=== PATIENT | male | born 1940 | race Caucasian/White ===

== ENCOUNTER 2016-08-22 14:40 | Emergency (ER) | payer MEDICARE ==
[2016-08-22] MEDS ORDERED: NORMAL SALINE 1000 ML 1,000 ML IV ONE (15:02)
[2016-08-22] MEDS ORDERED: NORMAL SALINE 1000 ML 500 ML IV ONE (15:02)
[2016-08-22] MEDS ORDERED: ONDANSETRON HCL INJ/PF 4 MG/2 ML SDV IV ONE (15:03)
[2016-08-22] MEDS ORDERED: FAMOTIDINE INJ/PF 20 MG/2 ML SDV IV ONE (15:03)
[2016-08-22 15:09] LABS: ABSOLUTE BASOPHILS # (AUTO) 0.1 10^3/uL (0.0-0.2); ABSOLUTE LYMPHOCYTES (AUTO) 1.6 10^3/uL (0.5-4.7); ABSOLUTE MONOCYTES (AUTO) 1.3 10^3/uL (0.1-1.4); BASOPHILS % (AUTO) 0.7 % (0-2); EOSINOPHILS % (AUTO) 0.3 % (0-6); HEMATOCRIT 47.4 % (37.9-51.0); HGB HCT DIFFERENCE -2.4; LYMPHOCYTES % (AUTO) 13.6 % (13-45); MEAN CORPUSCULAR HEMOGLOBIN 29.6 pg (27.0-33.4); MEAN CORPUSCULAR HGB CONC 31.7 g/dL (32.0-36.0); MEAN CORPUSCULAR VOLUME 93 fl (80-97); RED BLOOD COUNT 5.08 10^6/uL (4.35-5.55); RED CELL DISTRIBUTION WIDTH 14.5 % (11.5-14.0); SEGMENTED NEUTROPHILS % (AUTO) 74.4 % (42-78)
[2016-08-22] MEDS ORDERED: LIDOCAINE 5% (700 MG) TRANSDERMAL ADH..PATCH TP ONE (15:26)
[2016-08-22 15:40] LABS: ALANINE AMINOTRANSFERASE 23 U/L (21-72); ALBUMIN 4.6 g/dL (3.5-5.0); ALKALINE PHOSPHATASE 116 U/L (38-126); ANION GAP 15 (5-19); ASPARTATE AMINO TRANSFERASE 22 U/L (17-59); BILIRUBIN,TOTAL 0.8 mg/dL (0.2-1.3); BLOOD UREA NITROGEN 22 mg/dL (7-20); CALCIUM 10.4 mg/dL (8.4-10.2); CARBON DIOXIDE 32 mmol/L (22-30); CHLORIDE 95 mmol/L (98-107); CREATININE RESULT 0.94 mg/dL (0.52-1.25); GLUCOSE 137 mg/dL (75-110); POTASSIUM 4.2 mmol/L (3.6-5.0); SODIUM 141.5 mmol/L (137-145); TOTAL PROTEIN 7.1 g/dL (6.3-8.2)
[2016-08-22] MEDS ORDERED: MAG HYDROX/AL HYDROX/SIMETH SUSP 30 ML UDCUP PO ONE (16:22)
[2016-08-22] MEDS ORDERED: METOCLOPRAMIDE HCL ORAL SOLN 10 MG/10 ML UDCUP PO ONE (16:22)
[2016-08-22] MEDS ORDERED: LIDOCAINE 2% VISCOUS SOLN 20 ML UDCUP PO ONE (16:22)
[2016-08-22 17:15] LABS: APPEARANCE,URINE CLEAR; BILIRUBIN,URINE NEGATIVE (NEGATIVE); GLUCOSE, URINE NEGATIVE (NEGATIVE); KETONES,URINE NEGATIVE (NEGATIVE); LEUKOCYTE ESTERASE,URINE NEGATIVE (NEGATIVE); NITRITE,URINE NEGATIVE (NEGATIVE); PROTEIN,URINE 30 mg/dL (NEGATIVE); URINE SPECIFIC GRAVITY 1.015; UROBILINOGEN,URINE NEGATIVE mg/dL (<2.0)
[2016-08-22] MEDS ORDERED: ONDANSETRON ODT 4 MG TAB (6 TAB/DSPK) PO PRN (17:55)
--- NOTE | 2016-08-22 17:57 | ER Document Report ---
ED General - General Chief Complaint: Nausea/Vomiting Stated Complaint: NAUSEA TRAVEL OUTSIDE OF THE [place] IN LAST 30 DAYS: No - HPI Patient complains to provider of: abdominal burning nausea vomiting Notes: Yes patient coming in for complaining of abdominal burning states a dominant burning epigastric region nausea vomiting vomiting 2 prior to arrival. Patient states woke up this morning with the symptoms were not exacerbated by his breakfast. Patient denies fevers chills diarrhea. Patient upon evaluation is requesting something to drink. No obvious distress. - Related Data Allergies/Adverse Reactions: morphine Allergy (Verified 08/22/16 15:01) Past Medical History - Social History Smoking Status: Unknown if Ever Smoked Family History: CAD, DM - Past Medical History Cardiac Medical History: Reports: Hx Atrial Fibrillation, Hx Hypercholesterolemia, Hx Hypertension, Hx Peripheral Vascular Disease, Hx Pulmonary Embolism Pulmonary Medical History: Reports: Hx COPD, Hx Pneumonia Endocrine Medical History: Reports: Hx Diabetes Mellitus Type 2 Renal/ Medical History: Reports: Hx Kidney Stones - Incidental finding on CT scan 3 months ago. GI Medical History: Reports: Hx Gastroesophageal Reflux Disease Musculoskeltal Medical History: Reports Hx Arthritis Psychiatric Medical History: Reports: Hx Dementia - BINSWANGER'S Denies: Hx Depression Past Surgical History: Reports: Hx Abdominal Surgery - abdominal hernia, hemorrhoidectomy, AAA, Hx Cardiac Surgery, Hx Cholecystectomy, Hx Herniorrhaphy , Hx Vascular Surgery - AAA REPAIR - Immunizations Hx Diphtheria, Pertussis, Tetanus Vaccination: Yes - 2012 Hx Pneumococcal Vaccination: 05/03/16 Review of Systems - Review of Systems Constitutional: No symptoms reported EENT: No symptoms reported Cardiovascular: No symptoms reported Respiratory: No symptoms reported Gastrointestinal: Abdominal pain - Abdominal burning, Nausea, Vomiting Genitourinary: No symptoms reported Male Genitourinary: No symptoms reported Musculoskeletal: No symptoms reported Skin: No symptoms reported Hematologic/Lymphatic: No symptoms reported Neurological/Psychological: No symptoms reported -: Yes All other systems reviewed and negative Physical Exam - Vital signs Vitals: Resp Pulse Ox 26 H 95 08/22/16 15:02 08/22/16 15:02 Interpretation: Normal - General General appearance: Appears well, Alert - HEENT Head: Normocephalic, Atraumatic Eyes: Normal Pupils: PERRL - Respiratory Respiratory status: No respiratory distress Chest status: Nontender Breath sounds: Normal Chest palpation: Normal - Cardiovascular Rhythm: Regular Heart sounds: Normal auscultation Murmur: No - Abdominal Inspection: Normal Distension: No distension Bowel sounds: Normal Tenderness: Nontender Organomegaly: No organomegaly Notes: Patient with a reducible umbilical hernia. Surgical scar is well-healed no signs of infection. - Back Back: Normal, Nontender - Extremities General upper extremity: Normal inspection, Nontender, Normal color, Normal ROM , Normal temperature General lower extremity: Normal inspection, Nontender, Normal color, Normal ROM , Normal temperature, Normal weight bearing. No: Erin's sign - Neurological Neuro grossly intact: Yes Cognition: Normal Orientation: AAOx4 [place] Coma Scale Eye Opening: Spontaneous [place] Coma Scale Verbal: Oriented [place] Coma Scale Motor: Obeys Commands [place] Coma Scale Total: 15 Speech: Normal Motor strength normal: LUE, RUE, LLE, RLE Sensory: Normal - Psychological Associated symptoms: Normal affect, Normal mood - Skin Skin Temperature: Warm Skin Moisture: Dry Skin Color: Normal Course - Re-evaluation Re-evalutation: 08/22/16 22:31 Laboratory showed no critical etiology. Patient was able tolerate by mouth. Patient will be discharged home. Patient feeling better after Pepcid - Vital Signs Vital signs: Temp Pulse Resp BP Pulse Ox 23 H 121/78 95 08/22/16 18:06 08/22/16 18:06 08/22/16 18:06 - Laboratory Result Diagrams: 08/22/16 14:55 08/22/16 14:55 Laboratory results interpreted by me: 08/22/16 08/22/16 08/22/16 14:55 14:55 16:54 WBC 12.0 H MCHC 31.7 L RDW 14.5 H Absolute Neutrophils 9.0 H Chloride 95 L Carbon Dioxide 32 H BUN 22 H Glucose 137 H Calcium 10.4 H Urine Protein 30 H Discharge - Discharge Clinical Impression: abdominal burning Nausea & vomiting Qualifiers: Vomiting type: unspecified Vomiting Intractability: non-intractable Qualified Code(s): R11.2 - Nausea with vomiting, unspecified Condition: Good Disposition: HOME, SELF-CARE Instructions: Abdominal Pain ([facility]), Nausea or Vomiting, Nonspecific ([facility]) Additional Instructions: Please take medications as prescribed. Return to the ER if symptoms worsen. Follow-up with your primary care physician. Prescriptions: Famotidine [Pepcid 20 mg Tablet] 20 mg PO DAILY #12 tablet Ondansetron [Zofran Odt 4 mg Tablet] 1 - 2 tab PO Q4H PRN #20 tab.rapdis PRN Reason: For Nausea/Vomiting Referrals: DOUG PARMAR MD [Primary Care Provider] - Follow up in 3-5 days
[2016-08-22 18:29] VITALS: BP 121/78
== END 2016-08-22 18:29 | disposition home or self-care (01) ==
LOC: ER 14:40
DX: R11.2 Nausea with vomiting, unspecified (principal); R10.13 Epigastric pain
CPT/HCPCS: 99283; 96361; 96374; 96375; 36415; 83690; 85025; 80053; 81001; J3490; A9270; J2405; J7030; S0028

== ENCOUNTER 2016-09-14 21:12 | Inpatient (IN) | payer MEDICARE ==
[2016-09-14 23:01] LABS: HEMATOCRIT 40.6 % (37.9-51.0); HEMOGLOBIN 13.2 g/dL (13.5-17.0); MEAN CORPUSCULAR HEMOGLOBIN 30.2 pg (27.0-33.4); MEAN CORPUSCULAR HGB CONC 32.4 g/dL (32.0-36.0); MEAN CORPUSCULAR VOLUME 93 fl (80-97); RED BLOOD COUNT 4.35 10^6/uL (4.35-5.55); RED CELL DISTRIBUTION WIDTH 14.9 % (11.5-14.0); WHITE BLOOD COUNT 20.3 10^3/uL (4.0-10.5)
[2016-09-14 23:13] LABS: ANION GAP 12 (5-19); BLOOD UREA NITROGEN 17 mg/dL (7-20); CALCIUM 9.5 mg/dL (8.4-10.2); CARBON DIOXIDE 24 mmol/L (22-30); CHLORIDE 101 mmol/L (98-107); CREATININE RESULT 0.76 mg/dL (0.52-1.25); GLUCOSE 139 mg/dL (75-110); SODIUM 137.2 mmol/L (137-145)
[2016-09-14 23:40] LABS: BAND NEUTROPHILS % (MANUAL) 4 % (3-5); BASOPHILS % (MANUAL) 0 % (0-2); EOSINOPHILS % (MANUAL) 1 % (0-6); LYMPHOCYTES % (MANUAL) 11 % (13-45); TOTAL CELLS COUNTED 100
[2016-09-14 23:44] LABS: TOXIC GRANULATION 1+; TOXIC VACUOLATION PRESENT
[2016-09-14 23:45] LABS: ANISOCYTOSIS SLIGHT; BURR CELLS 2+; OVALOCYTES 1+; POIKILOCYTOSIS 3+; RBC MORPHOLOGY COMMENT NORMO-CYTIC/CHROMIC; TEAR DROP CELLS 1+
[2016-09-14 23:46] LABS: PLATELET CLUMPS PRESENT
[2016-09-15] MEDS ORDERED: LEVOFLOXACIN 500 MG/D5W RTU 100 ML IV ONE (03:06)
[2016-09-15] MEDS ORDERED: CEFEPIME 2 GM/D5W RTU 50 ML IV ONE (03:06)
[2016-09-15] MEDS ORDERED: VANCOMYCIN HCL INJ 1000 MG VIAL IV ONE (03:07)
[2016-09-15] MEDS ORDERED: METHYLPREDNISOLONE INJ 125 MG/2 ML SDV IV ONE (03:07)
[2016-09-15] MEDS ORDERED: IPRATROPIUM/ALBUTEROL 0.5-2.5 MG/3 ML AMPUL NEB ONE ×2 (03:07)
--- NOTE | 2016-09-15 03:22 | ER Document Report ---
ED Respiratory Problem - General Mode of Arrival: Wheelchair Information source: Patient, Relative TRAVEL OUTSIDE OF THE [place] IN LAST 30 DAYS: No - HPI Patient complains to provider of: Other - weakness Onset: Other - 2 days Associated symptoms: Other - See above <LARS MUIR - Last Filed: 09/15/16 03:22> <GIOVANAFAMILIA ROBER - Last Filed: 09/15/16 06:13> - General Chief Complaint: General Weakness Stated Complaint: weakness Notes: Patient is a 76 year old male, with a past medical history including Parkinsons and COPD, who presents to the emergency department with his family complaining of weakness onset 2 days ago. Patient states that he "feels terrible" and the weakness started suddenly and has worsened so that he was unable to walk or stand today. Patient was recently treated for pneumonia and currently complains of a cough. Per patient is not on antibiotics, steroids, breathing treatments, or home oxygen. (LARS MUIR) - Related Data Allergies/Adverse Reactions: morphine Allergy (Verified 09/15/16 04:51) Past Medical History - General Information source: Patient - Social History Smoking Status: Unknown if Ever Smoked Family History: Reviewed & Not Pertinent, CAD, DM Patient has suicidal ideation: No Patient has homicidal ideation: No - Past Medical History Cardiac Medical History: Reports: Hx Atrial Fibrillation, Hx Hypercholesterolemia, Hx Hypertension, Hx Peripheral Vascular Disease, Hx Pulmonary Embolism Pulmonary Medical History: Reports: Hx COPD, Hx Pneumonia Endocrine Medical History: Reports: Hx Diabetes Mellitus Type 2 Renal/ Medical History: Reports: Hx Kidney Stones - Incidental finding on CT scan 3 months ago. GI Medical History: Reports: Hx Gastroesophageal Reflux Disease Musculoskeltal Medical History: Reports Hx Arthritis Psychiatric Medical History: Reports: Hx Dementia - BINSWANGER'S Past Surgical History: Reports: Hx Abdominal Surgery - abdominal hernia, hemorrhoidectomy, AAA, Hx Cardiac Surgery, Hx Cholecystectomy, Hx Herniorrhaphy , Hx Vascular Surgery - AAA REPAIR - Immunizations Hx Diphtheria, Pertussis, Tetanus Vaccination: Yes - 2012 Hx Pneumococcal Vaccination: 05/03/16 <LARS MUIR - Last Filed: 09/15/16 03:22> Review of Systems - Review of Systems Constitutional: See HPI, Weakness EENT: No symptoms reported Cardiovascular: No symptoms reported Respiratory: See HPI, Cough Gastrointestinal: No symptoms reported Genitourinary: No symptoms reported Male Genitourinary: No symptoms reported Musculoskeletal: No symptoms reported Skin: No symptoms reported Hematologic/Lymphatic: No symptoms reported Neurological/Psychological: No symptoms reported -: Yes All other systems reviewed and negative <LARS MUIR - Last Filed: 09/15/16 03:22> Physical Exam - Vital signs Interpretation: Normal - General General appearance: Appears well, Alert - HEENT Head: Normocephalic, Atraumatic - Respiratory Respiratory status: No respiratory distress Chest status: Nontender Breath sounds: Rales - left base, Wheezing - diffuse Chest palpation: Normal - Cardiovascular Rhythm: Regular Heart sounds: Normal auscultation Murmur: No - Abdominal Inspection: Normal Distension: No distension Bowel sounds: Normal Tenderness: Nontender Organomegaly: No organomegaly - Back Back: Normal, Nontender - Extremities General upper extremity: Normal inspection General lower extremity: Normal inspection - Neurological Neuro grossly intact: Yes Cognition: Normal Orientation: AAOx4 [place] Coma Scale Eye Opening: Spontaneous [place] Coma Scale Verbal: Oriented [place] Coma Scale Motor: Obeys Commands [place] Coma Scale Total: 15 Speech: Normal - Psychological Associated symptoms: Normal affect, Normal mood - Skin Skin Temperature: Warm Skin Moisture: Dry Skin Color: Normal <LARS MUIR - Last Filed: 09/15/16 03:22> Course - Laboratory Result Diagrams: 09/14/16 22:44 09/14/16 22:44 <LARS MUIR - Last Filed: 09/15/16 03:22> - Laboratory Result Diagrams: 09/14/16 22:44 09/14/16 22:44 - Diagnostic Test Radiology reviewed: Image reviewed, Reports reviewed <FAMILIA AKHTAR - Last Filed: 09/15/16 06:13> - Re-evaluation Re-evalutation: 09/15/16 Patient presents with cough, weakness, and difficulty breathing. X-ray consistent with pneumonia. Patient with wheezing on exam. Treated with nebulizer, steroids, cefepime, Levaquin, and vancomycin as the patient was recently had pneumonia and was admitted in July. Patient has been discussed with the hospitalist service and will be admitted to the [facility]. Patient and family agrees plan. Stable time of admission. (FAMILIA AKHTAR) - Vital Signs Vital signs: Temp Pulse Resp BP Pulse Ox 100.2 F 31 H 106/63 93 09/15/16 06:00 09/15/16 06:01 09/15/16 06:00 09/15/16 06:01 (FAMILIA AKHTAR) - Laboratory Laboratory results interpreted by me: 09/14/16 09/14/16 22:44 22:44 WBC 20.3 H Hgb 13.2 L RDW 14.9 H Seg Neuts % (Manual) 80 H Lymphocytes % (Manual) 11 L Metamyelocytes % 1 H Abs Neuts (Manual) 17.3 H Glucose 139 H (LARS MUIR) (FAMILIA AKHTAR) Discharge <LARS MUIR - Last Filed: 09/15/16 03:22> - Discharge Admitting Provider: [facility] Unit Admitted: [facility] <FAMILIA AKHTAR - Last Filed: 09/15/16 06:13> - Discharge Clinical Impression: COPD exacerbation, Dehydration LLL pneumonia Qualifiers: Pneumonia type: due to unspecified organism Qualified Code(s): J18.1 - Lobar pneumonia, unspecified organism Condition: Stable Disposition: ADMITTED INPATIENT Scribe Documentation - Scribe Written by Tyleribe:: jennifer Ellis, 09/15/16, 0330 acting as scribe for :: Giovana <LARS MUIR - Last Filed: 09/15/16 03:22>
[2016-09-15] MEDS ORDERED: CEFEPIME 2 GM/D5W RTU 2 GM/50 ML RTUPB IV ONE (04:07)
[2016-09-15] MEDS ORDERED: NICOTINE 21 MG/24 HR PATCH.TD24 TD PRN (04:19)
[2016-09-15] MEDS ORDERED: DEXTROSE 50%-WATER 25 GM/50 ML DISP.SYRIN IV PRN ×2 (04:19)
[2016-09-15] MEDS ORDERED: GLUCAGON,HUMAN RECOMB 1 MG INJ IM PRN (04:19)
[2016-09-15] MEDS ORDERED: DEXTROSE 40% GEL 15 GM TUBE PO PRN ×2 (04:19)
[2016-09-15] MEDS ORDERED: GUAIFENESIN SYRP 200 MG/10 ML UDC PO PRN (04:27)
[2016-09-15] MEDS ORDERED: ALBUTEROL SULFATE 0.083% NEB 2.5 MG/3 ML AMPUL NEB PRN (04:27)
[2016-09-15] MEDS ORDERED: PHARMACY COMMUNICATION ORDER MC NR (04:30)
[2016-09-15] MEDS ORDERED: VANCOMYCIN HCL 0 MG in DEXTROSE 5%-WATER 250 ML IV NR (04:45)
--- NOTE | 2016-09-15 05:02 | PDOC H&P ---
History of Present Illness Admission Date/PCP: Dr. Dori Rae, [place], [place], [place] Patient complains of: difficulty breathing History of Present Illness: BRITTANY SALCEDO is a 76 year old male with underlying nonhome O2 dependent COPD, Parkinson's disease, type II diabetes mellitus, atrial fibrillation, not on chronic anticoagulation, history of pulmonary embolus, type II diabetes mellitus, esophageal reflux disease, arthritis, and dementia who presents to the emergency room for evaluation of above complaint. He and , who is no longer present, note a 2 day history of progressive generalized weakness, to the point of where he is unable to walk or stand over the last 12 hours or so. Normally ambulates with a walker. Patient states that he "feels terrible." Subjective fever, along with a slowly increasingly productive cough. However, no nausea vomiting, diarrhea or dysuria. No chest or abdominal pain. No underlying sleep apnea. Hospitalized the through the of last July with final diagnoses including sepsis and pneumonia. Was discharged home with a six-day course of Levaquin and a 10 day course of prednisone. Patient has been discussed with emergency room physician who evaluated the patient. . Laboratory results are listed in [facility] and are reviewed. X-ray summary results are listed below, with full report(s) reviewed. . Social history/personal habits: . No children. Retired. Lives with . Pack-a-day smoker. No alcohol or illicit drug use. Allergies/adverse reactions are listed in [facility] and are reviewed. No problems with Percocet. Home medications Home medications initially autopopulated into [facility] may not accurately reflect patient's true medications, dosages, and/or frequencies. Unfortunately, patient uncertain of medications/dosages/frequencies. Order has been entered for staff to contact family, outpatient physician, and/or pharmacy to more accurately determine medications, dosages, and frequencies and to contact physician when that has been accomplished. REVIEW OF SYSTEMS: Constitutional: See history and present illness. Eyes: No current vision complaints. ENT: No swallowing problems or complaints. Partial hearing loss. Pulmonary: See history and present illness. Cardiovascular: No current complaints, including chest pain. Gastrointestinal: No current complaints, including nausea or vomiting. Skin: No current complaints, including rashes. Hematologic: Easy bruising. Neurologic: No current complaints, including numbness or tingling. Musculoskeletal: Joint pain from arthritis. Psychiatric: Mild Anxiety depression; denies suicidal or homicidal ideation. Endocrine: No current complaints, including polyuria. Genitourinary: No current complaints, including dysuria. PHYSICAL EXAMINATION: Neither height nor weight are recorded on the chart. Temperature 100.2. Blood pressure 113/67. Pulse 71 and regular. 94% saturation on room air. Respirations are 20 and unlabored. On exam he outwardly is a slightly overweight otherwise well-nourished well- developed elderly male who appears a bit younger than his stated age. Appears slightly fatigued. Otherwise, pleasant awake alert and cooperative. No obvious distress other than mildly anxious. No agitation. Skin is warm and dry. No grossly obvious evidence of rash in areas of skin examined. No subcutaneous nodules palpated. ENT: Hearing grossly normal Mildly hard of hearing to normal conversation. Tongue midline on protrusion pink and slightly tacky. Eyes: No scleral icterus. Pupils equal and reactive to light at 4 mm. [place] conjunctivae. Neck is supple and nontender to gentle active range of motion and palpation. Midline trachea. No palpable thyroid nodule mass enlargement or tenderness. Lymphatic: No palpable cervical or clavicular nodes. Neck and lymphatic exams limited by patient body habitus. Psychiatric: Reasonable insight into acute and chronic medical issues. Oriented to time location and why here. Lungs: Auscultation reveals clear and equal breath sounds bilaterally. No use of accessory respiratory muscles. Intermittent slightly productive cough. Cardiovascular: Heart regular rate and rhythm, without gallop murmur or rub. No carotid or abdominal aortic bruits. No ankle or pedal edema. Faintly palpable dorsalis pedis pulses. Abdomen: soft, , slightly distended nontender with positive bowel sounds. Unable to adequately evaluate abdomen for masses or organomegaly due to distention. Extremities: Feet are warm and dry. No calf tenderness to compression. No grossly obvious visual evidence of calf swelling. Gentle manipulation of lower extremities fails to reveal any obvious evidence of injury or instability to knees hips or ankles. Neurologic: Moves upper extremities grossly normally. Patellar reflexes absent. Absent Babinski. Light touch is intact at feet. Dorsiflexion and plantarflexion of feet 5 / 5 and symmetric. Past Medical History Cardiac Medical History: Reports: Atrial Fibrillation, Hyperlipidema, Hypertension, Peripheral Vascular Disease, Pulmonary Embolism - History of Denies: Congestive Heart Failure, Myocardial Infarction Pulmonary Medical History: Reports: Chronic Obstructive Pulmonary Disease (COPD) , Pneumonia EENT Medical History: Reports: Ears - Partial hearing loss Denies: Eyes, Throat Neurological Medical History: Reports: Other - Parkinson's disease. Denies: Hemorrhagic CVA, Ischemic CVA, Seizures Endocrine Medical History: Reports: Diabetes Mellitus Type 2 Denies: Diabetes Mellitus Type 1, Hyperthyroidism, Hypothyroidism Renal/ Medical History: Reports: Nephrolithiasis - Incidental finding on recent CT scan. GI Medical History: Reports: Gastroesophageal Reflux Disease Denies: Cirrhosis, Hepatitis, Peptic Ulcer Disease Musculoskeltal Medical History: Reports: Arthritis Skin Medical History: Reports: None Denies: Eczema, Psoriasis Psychiatric Medical History: Reports: Dementia - BINSWANGER'S, Tobacco Dependency Denies: Alcohol Dependency, Depression, Substance Abuse Infectious Medical History: Denies: Hepatitis B, Hepatitis C Past Surgical History Past Surgical History: Reports: Cholecystectomy, Herniorrhaphy, Vascular Surgery - AAA REPAIR Social History Information Source: Patient, Emergency Med Personnel, [facility] Records Lives with: Spouse/Significant other Smoking Status: Current Every Day Smoker Frequency of Alcohol Use: None Hx Recreational Drug Use: No Drugs: None Hx Prescription Drug Abuse: No - Advance Directive Resuscitation Status: Full Code Surrogate healthcare decision maker:: Family History Family History: CAD, DM Parental Family History Reviewed: Yes Children Family History Reviewed: NA Sibling(s) Family History Reviewed.: Yes Medication/Allergy Home Medications: Omeprazole [Prilosec 40 mg Capsule] 40 mg PO DAILY #0 capsule. 02/20/13 Furosemide [Lasix 20 mg Tablet] 40 mg PO QAM 01/20/15 Potassium Chloride 20 meq PO BID 01/20/15 Carbidopa/Levodopa [Sinemet 25-100 mg Tablet] 1.5 each PO TID 07/11/16 Lisinopril [Prinivil 2.5 mg Tablet] 2.5 mg PO DAILY 07/11/16 Lorazepam [Ativan 0.5 mg Tablet] 0.5 mg PO Q4 PRN 07/11/16 Metformin HCl [Metformin HCl ER] 500 mg PO WSUPPER 07/11/16 Sertraline HCl 50 mg PO DAILY 07/11/16 Solifenacin Succinate [Vesicare] 5 mg PO DAILY 07/11/16 Albuterol Sulfate [Proair Respiclick] 2 puff IH Q6H #1 aer.pow.ba 07/14/16 Atorvastatin Calcium [Lipitor 10 mg Tablet] 10 mg PO QHS tablet 07/14/16 Benzonatate [Tessalon Perles 100 mg Capsule] 100 mg PO Q8 #30 capsule 07/14/16 Fluticasone Propionate [Flonase Nasal [place] 50 Mcg/[place] 16 gm] 2 spray NASL QPM #1 bottle 07/14/16 Levofloxacin [Levaquin 750 mg Tablet] 750 mg PO DAILY #6 tablet 07/14/16 Magnesium Oxide [Mag-Ox 400 mg Tablet] 400 mg PO DAILY tablet 07/14/16 Multivitamin [Tab-A-Edy (Multiple Vitamin) Tablet] 1 tab PO DAILY tablet 07/14 Oxycodone HCl/Acetaminophen [Percocet 5-325 mg Tablet] 1 tab PO Q4HP PRN tablet 07/14/16 Prednisone [Deltasone 20 mg Tablet] 20 mg PO BID #20 tablet 07/14/16 Sotalol HCl [Betapace 80 mg Tablet] 40 mg PO BID tablet 07/14/16 Tamsulosin HCl [Flomax 0.4 mg Cap.sr] 0.4 mg PO BID cap.sr.24h 07/14/16 Tiotropium [place] [Spiriva Handihaler 18 mcg/dose (30 Dose)] 1 cap IH DAILY # 30 capsule 07/14/16 Famotidine [Pepcid 20 mg Tablet] 20 mg PO DAILY #12 tablet 08/22/16 Ondansetron [Zofran Odt 4 mg Tablet] 1 - 2 tab PO Q4H PRN #20 tab.rapdis Allergies/Adverse Reactions: morphine Allergy (Verified 08/22/16 15:01) Physical Exam Vital Signs: Temp Pulse Resp BP Pulse Ox 100.8 F H 29 H 120/67 97 09/15/16 03:24 09/15/16 03:24 09/15/16 03:24 09/15/16 03:40 Results Laboratory Results: 09/14/16 22:44 09/14/16 22:44 09/14/16 09/14/16 22:44 22:44 WBC 20.3 H RBC 4.35 Hgb 13.2 L Hct 40.6 MCV 93 MCH 30.2 MCHC 32.4 RDW 14.9 H Plt Count 210 Seg Neutrophils % Not Reportable Lymphocytes % Not Reportable Monocytes % Not Reportable Eosinophils % Not Reportable Basophils % Not Reportable Absolute Neutrophils Not Reportable Absolute Lymphocytes Not Reportable Absolute Monocytes Not Reportable Absolute Eosinophils Not Reportable Absolute Basophils Not Reportable Sodium 137.2 Potassium 4.0 Chloride 101 Carbon Dioxide 24 Anion Gap 12 BUN 17 Creatinine 0.76 Est GFR ( Amer) > 60 Est GFR (Non-Af Amer) > 60 Glucose 139 H Calcium 9.5 Impressions: Chest X-Ray 09/14/16 22:25 IMPRESSION: LEFT LOWER LOBE INFILTRATE WITH PROBABLE LEFT PLEURAL EFFUSION. Assessment & Plan - Diagnosis (1) COPD exacerbation Is this a current diagnosis for this admission?: Yes (2) LLL pneumonia Qualifiers: Pneumonia type: due to unspecified organism Qualified Code(s): J18.1 - Lobar pneumonia, unspecified organism Is this a current diagnosis for this admission?: YesPlan: Patient will be admitted under COPD exacerbation and pneumonia protocol. Incentive spirometry twice a day. Scheduled DuoNeb's. PRN albuterol nebs daily prednisone. Prevacid for gastritis prophylaxis. Antibiotics will consist of cefepime, aztreonam, and intravenous vancomycin. Pharmacy to assist with dosing.. I strongly encouraged patient to notify staff should patient feel that respiratory status is worsening. Patient is a full code. I have strongly encouraged patient not to get out of bed without notifying staff , , to avoid a fall with injury. Knee high SCDs for DVT prophylaxis, along with subcutaneous Lovenox Impression and plans were discussed with patient, who concurs. Time spent in evaluation and management of patient: 60 minutes. (3) Atrial fibrillation Qualifiers: Atrial fibrillation type: unspecified Qualified Code(s): I48.91 - Unspecified atrial fibrillation Is this a current diagnosis for this admission?: YesPlan: Hemodynamically stable.Resume home medications as appropriate once these have been determined and reviewed. (4) Parkinsons disease Is this a current diagnosis for this admission?: YesPlan: Resume home medications as appropriate once these have been determined and reviewed. (5) Tobacco dependency Is this a current diagnosis for this admission?: YesPlan: When necessary nicotine patch. - Inpatient Certification Based on my medical assessment, after consideration of the patient's comorbidities, presenting symptoms, or acuity I expect that the services needed warrant INPATIENT care.: Yes I certify that my determination is in accordance with my understanding of Medicare's requirements for reasonable and necessary INPATIENT services [42 CFR 412.3e].: Yes Medical Necessity: Need Close Monitoring Due to Risk of Patient Decompensation, Need For Continuous Telemetry Monitoring, Need for Nebulizer Therapy and Monitoring of Response, Need for IV Antibiotics, Risk of Complication if Not Cared For in Hospital, Risk of Diagnosis Which Will Require Inpatient Eval/Care/ Monitoring Post Hospital Care: D/C or Transfer Summary
[2016-09-15] MEDS: ACETAMINOPHEN 325 MG TABLET PO PRN ×2 (05:53→20:04)
[2016-09-15] MEDS ORDERED: CEFEPIME 2 GM/D5W RTU 50 ML IV SCH (06:00)
[2016-09-15 06:49] LABS: BILIRUBIN,URINE NEGATIVE (NEGATIVE); GLUCOSE, URINE NEGATIVE (NEGATIVE); KETONES,URINE NEGATIVE (NEGATIVE); LEUKOCYTE ESTERASE,URINE NEGATIVE (NEGATIVE); NITRITE,URINE NEGATIVE (NEGATIVE); PROTEIN,URINE NEGATIVE (NEGATIVE); UROBILINOGEN,URINE NEGATIVE mg/dL (<2.0)
[2016-09-15 06:51] LABS: APPEARANCE,URINE CLEAR; URINE SPECIFIC GRAVITY 1.003
[2016-09-15 07:04] LABS: HEMATOCRIT 35.9 % (37.9-51.0); HEMOGLOBIN 11.9 g/dL (13.5-17.0); HGB HCT DIFFERENCE -0.2; MEAN CORPUSCULAR HEMOGLOBIN 30.4 pg (27.0-33.4); MEAN CORPUSCULAR HGB CONC 33.2 g/dL (32.0-36.0); MEAN CORPUSCULAR VOLUME 92 fl (80-97); RED BLOOD COUNT 3.91 10^6/uL (4.35-5.55); RED CELL DISTRIBUTION WIDTH 14.7 % (11.5-14.0); WHITE BLOOD COUNT 15.6 10^3/uL (4.0-10.5)
[2016-09-15 07:11] LABS: ALBUMIN 2.8 g/dL (3.5-5.0); TOTAL PROTEIN 5.5 g/dL (6.3-8.2)
[2016-09-15] MEDS: LANSOPRAZOLE 30 MG TAB.RAP.DR PO SCH ×2 (07:36→16:16)
[2016-09-15 07:37] LABS: BASOPHILS % (MANUAL) 0 % (0-2); EOSINOPHILS % (MANUAL) 0 % (0-6); LYMPHOCYTES % (MANUAL) 0 % (13-45); TOTAL CELLS COUNTED 100
[2016-09-15] MEDS: ENOXAPARIN SODIUM INJ 40 MG/0.4 ML DISP.SYRIN SUBCUT SCH (07:37)
[2016-09-15 07:38] LABS: RBC MORPHOLOGY COMMENT NORMO-CYTIC/CHROMIC; TOXIC GRANULATION SLIGHT
[2016-09-15] MEDS: INSULIN LISPRO 100 UNIT/ML 3 ML VIAL SUBCUT PRN ×4 (07:39→21:18)
[2016-09-15] MEDS ORDERED: IPRATROPIUM/ALBUTEROL 0.5-2.5 MG/3 ML AMPUL NEB SCH (08:00)
[2016-09-15] MEDS: PREDNISONE 20 MG TABLET PO SCH (09:33)
--- NOTE | 2016-09-15 11:31 | Physician Advisory Note ---
Physician Advisor ProgressNote .: Pursuant to the plan for [facility], I have reviewed the medical record for this patient. Physician Advisor Statement: Possible documentation opportunities if attending agrees: 1. "LLL pneumonia, suspect gram negative or MRSA given recent hospitalization" (need to specify type of bacteria suspected w/each PNA) 2. "possible sepsis due to pneumonia, present on admission, with tachypnea, fever 100.8, leukocytosis, ruled out/in" 3. "probable Lt pleural effusion by CXR" (must re-state possible findings on x -rays for them to be captured) 4. "chronic Afib" (vs paroxysmal Afib) 5. ? - "suspected malnutrition" - & state whether mild or moderate ..... Alb 2.8, age 76, BMI 30.1. As always, if concerned about any unstable VS or abnormal labs, please comment on them & note what doing about them, & please document each day the potential clinical problems you are concerned could occur if pt not kept in hospital for tx at this time. Status: 76yo with COPD & ongoing tobacco dependence, HTN, chronic Afib, DM-2, PE, PVD w/ AAA repair, PD, [place] dementia, ambulatory dysfunction requiring walker, recent hospitalization in Jul for PNA + sepsis, presented late 2/12 PM to ED with worsened wekaness, cough. (+)T100.2 up to 100.8, HR 71, RR31 up to 33, BP 106/63, O2 sat 93%, WBC 20.3, Hgb 13.2, glc 139. CXR = LLL infiltrate + probable Lt pleural effusion. (+) LLL rales, diffuse wheezing. Attending ordered nebs, IV cefepime/aztreonam/vanc, incentive spirometry, guaifenesin, Duonebs q6h + prn albuterol nebs, Prednisone 60mg daily as is currently recommended with COPD exacerbations as a substitute for IV Solumedroll , telemetry monitoring, PT eval. Pt spent 1st MN of care in ED before adm, & it was clearly expected that pt would require a 2nd MN at time of admission. Pt still having persistent tachypnea to 34, repeated tachycardia 90s, persistent leukocytosis of 15.6 Tx in inpatient hospital setting medically reasonable & necessary to protect pt' s health, safety, & medical condition. Appropriate for Inpt status. Thanks for your help with documentation accuracy/specificity improvement! Michell Harrison MD [facility] Physician Advisor, Fellow of [facility]
[2016-09-15] MEDS ORDERED: BENZONATATE 100 MG CAPSULE PO PRN (12:43)
[2016-09-15] MEDS ORDERED: LEVALBUTEROL HCL NEB 0.63 MG/3 ML AMPUL NEB PRN (12:48)
[2016-09-15] MEDS ORDERED: GUAIFENESIN 600 MG TABLET.SA PO ONE (13:00)
[2016-09-15] MEDS: CEFEPIME HCL 2 GM in DEXTROSE 5%-WATER 50 ML IV SCH ×2 (13:11→22:10)
[2016-09-15] MEDS: AZTREONAM 2 GM in DEXTROSE 5%-WATER 100 ML IV SCH ×2 (13:13→21:10)
--- NOTE | 2016-09-15 13:20 | PDOC PROGRESS REPORT ---
Subjective Progress Note for:: 09/15/16 Subjective:: The patient was seen earlier today on rounds. Patient admits to ongoing shortness of breath but overall this is improved. The patient states he has been producing yellow sputum. The patient denies any nausea, vomiting, diarrhea , dizziness, chest pain, heart palpitations, fevers, or chills. The patient has remained afebrile. Blood pressures have been in a good range. When prompted the patient voices no other concerns at this time. Review of systems: The rest of the review of systems is negative. Physical Exam Vital Signs: Temp Pulse Resp BP Pulse Ox 99.3 F 80 20 117/63 95 09/15/16 07:50 09/15/16 08:03 09/15/16 08:03 09/15/16 07:50 09/15/16 08:03 Intake & Output 09/13/16 09/14/16 09/15/16 23:59 23:59 23:59 Weight 95.3 kg General appearance: PRESENT: no acute distress, cooperative, well-developed, well-nourished Head exam: PRESENT: atraumatic, normocephalic Eye exam: PRESENT: conjunctiva pink, EOMI, PERRLA. ABSENT: scleral icterus Ear exam: PRESENT: normal external ear exam Mouth exam: PRESENT: moist, tongue midline Neck exam: ABSENT: carotid bruit, JVD, lymphadenopathy, thyromegaly Respiratory exam: PRESENT: rhonchi, symmetrical, unlabored, wheezes. ABSENT: rales, tachypnea Cardiovascular exam: PRESENT: RRR. ABSENT: diastolic murmur, rubs, systolic murmur Pulses: PRESENT: normal dorsalis pedis pul Vascular exam: PRESENT: normal capillary refill GI/Abdominal exam: PRESENT: normal bowel sounds, soft. ABSENT: distended, guarding, mass, organolmegaly, rebound, tenderness Rectal exam: PRESENT: deferred Extremities exam: PRESENT: full ROM. ABSENT: calf tenderness, clubbing, pedal edema Neurological exam: PRESENT: alert, awake, oriented to person, oriented to place , oriented to time, oriented to situation, CN II-XII grossly intact. ABSENT: motor sensory deficit Psychiatric exam: PRESENT: appropriate affect, normal mood. ABSENT: homicidal ideation, suicidal ideation Skin exam: PRESENT: dry, intact, warm. ABSENT: cyanosis, rash Results Laboratory Results: 09/15/16 06:45 09/15/16 09/15/16 09/15/16 06:05 06:45 06:45 WBC 15.6 H RBC 3.91 L Hgb 11.9 L Hct 35.9 L MCV 92 MCH 30.4 MCHC 33.2 RDW 14.7 H Plt Count 168 Seg Neutrophils % Not Reportable Lymphocytes % Not Reportable Monocytes % Not Reportable Eosinophils % Not Reportable Basophils % Not Reportable Absolute Neutrophils Not Reportable Absolute Lymphocytes Not Reportable Absolute Monocytes Not Reportable Absolute Eosinophils Not Reportable Absolute Basophils Not Reportable Total Bilirubin 1.0 AST 16 L ALT 22 Alkaline Phosphatase 71 Total Protein 5.5 L Albumin 2.8 L Urine Color YELLOW Urine Appearance CLEAR Urine pH 6.0 Ur Specific [place] 1.003 Urine Protein NEGATIVE Urine Glucose (UA) NEGATIVE Urine Ketones NEGATIVE Urine Blood NEGATIVE Urine Nitrite NEGATIVE Ur Leukocyte Esterase NEGATIVE Urine WBC (Auto) 0 Urine RBC (Auto) 0 Impressions: Chest X-Ray 09/14/16 22:25 IMPRESSION: LEFT LOWER LOBE INFILTRATE WITH PROBABLE LEFT PLEURAL EFFUSION. Assessment & Plan - Diagnosis (1) LLL pneumonia Qualifiers: Pneumonia type: due to unspecified organism Qualified Code(s): J18.1 - Lobar pneumonia, unspecified organism Is this a current diagnosis for this admission?: YesPlan: Awaiting sputum culture. Given the patient's recent admission will cover for HCAP for another 24 hours. (2) COPD exacerbation Is this a current diagnosis for this admission?: YesPlan: Continue scheduled nebs as well as as needed nebulizers, steroids, and supplemental oxygen. (3) Acute on chronic respiratory failure with hypoxemia Is this a current diagnosis for this admission?: YesPlan: Will continue supplemental O2. (4) Sepsis Qualifiers: Sepsis type: sepsis due to unspecified organism Qualified Code(s): A41.9 - Sepsis, unspecified organism Is this a current diagnosis for this admission?: YesPlan: Much improved Selected Entries 09/15/16 09/15/16 09/15/16 03:24 03:59 06:00 Temperature 100.8 F H 100.2 F Respiratory 30 H Rate 09/14/16 09/15/16 22:44 06:45 WBC 20.3 H 15.6 H (5) Atrial fibrillation Qualifiers: Atrial fibrillation type: unspecified Qualified Code(s): I48.91 - Unspecified atrial fibrillation Is this a current diagnosis for this admission?: YesPlan: Will continue home medications once reconcilable. (6) Parkinsons disease Is this a current diagnosis for this admission?: YesPlan: Will continue home medications once reconcilable. (7) Diabetes mellitus type 2 in nonobese Is this a current diagnosis for this admission?: YesPlan: Will continue home medications once reconcilable. (8) Tobacco dependency Is this a current diagnosis for this admission?: YesPlan: Spent 3 minutes discussing smoking cessation education. The patient declines any pharmacological intervention at this time however will add a PRN nicotine patch. 09/15/16 04:19 Nicotine [Nicoderm 21 mg/24 Hr Transderm Patch] 1 each TD DAILYP PRN (9) History of Magi's granulomatosis Is this a current diagnosis for this admission?: Yes (10) History of pulmonary embolus (PE) Is this a current diagnosis for this admission?: Yes - Time Time Spent with patient: on this visit including assessment, plan, physical examination, and patient education is 35 minutes. Time Spent with patient: 35 or more minutes Medications reviewed and adjusted accordingly: Yes Anticipated discharge: Home Within: within 48 hours Disposition: The patient is a full code. Pending patient's symptomatology and diagnostic findings will reevaluate in the a.m.
[2016-09-15] MEDS ORDERED: AZTREONAM 2 GM in DEXTROSE 5%-WATER 50 ML IV SCH (14:00)
[2016-09-15] MEDS: LEVALBUTEROL HCL NEB 1.25 MG/3 ML AMPUL NEB SCH ×2 (15:49→23:44)
[2016-09-15] MEDS: VANCOMYCIN HCL 1,250 MG in DEXTROSE 5%-WATER 250 ML IV SCH (16:17)
[2016-09-15] MEDS: GUAIFENESIN 600 MG TABLET.SA PO SCH (21:10)
[2016-09-15] MEDS: MONTELUKAST SODIUM 10 MG TABLET PO SCH (21:10)
[2016-09-16] MEDS: VANCOMYCIN HCL 1,250 MG in DEXTROSE 5%-WATER 250 ML IV SCH ×2 (03:22→16:41)
[2016-09-16] MEDS: ACETAMINOPHEN 325 MG TABLET PO PRN (03:52)
[2016-09-16 05:33] LABS: HEMOGLOBIN 11.3 g/dL (13.5-17.0); HGB HCT DIFFERENCE -0.1; MEAN CORPUSCULAR HEMOGLOBIN 30.6 pg (27.0-33.4); MEAN CORPUSCULAR HGB CONC 33.2 g/dL (32.0-36.0); MEAN CORPUSCULAR VOLUME 92 fl (80-97); RED BLOOD COUNT 3.69 10^6/uL (4.35-5.55); RED CELL DISTRIBUTION WIDTH 14.9 % (11.5-14.0); WHITE BLOOD COUNT 12.6 10^3/uL (4.0-10.5)
[2016-09-16 05:47] LABS: ALANINE AMINOTRANSFERASE 20 U/L (21-72); ALKALINE PHOSPHATASE 73 U/L (38-126); ANION GAP 12 (5-19); ASPARTATE AMINO TRANSFERASE 13 U/L (17-59); BILIRUBIN,TOTAL 0.6 mg/dL (0.2-1.3); BLOOD UREA NITROGEN 18 mg/dL (7-20); CALCIUM 9.2 mg/dL (8.4-10.2); CARBON DIOXIDE 20 mmol/L (22-30); CHLORIDE 106 mmol/L (98-107); CREATININE RESULT 0.66 mg/dL (0.52-1.25); GLUCOSE 199 mg/dL (75-110); POTASSIUM 3.9 mmol/L (3.6-5.0); SODIUM 137.7 mmol/L (137-145); TOTAL PROTEIN 5.3 g/dL (6.3-8.2)
[2016-09-16] MEDS: CEFEPIME HCL 2 GM in DEXTROSE 5%-WATER 50 ML IV SCH ×3 (05:58→21:32)
[2016-09-16 05:59] LABS: MAGNESIUM 1.3 mg/dL (1.6-2.3)
[2016-09-16] MEDS: AZTREONAM 2 GM in DEXTROSE 5%-WATER 100 ML IV SCH ×3 (05:59→22:11)
[2016-09-16] MEDS: LANSOPRAZOLE 30 MG TAB.RAP.DR PO SCH ×2 (05:59→17:35)
[2016-09-16] MEDS: INSULIN LISPRO 100 UNIT/ML 3 ML VIAL SUBCUT PRN ×3 (07:32→22:11)
[2016-09-16] MEDS: LEVALBUTEROL HCL NEB 1.25 MG/3 ML AMPUL NEB SCH ×3 (08:18→23:46)
[2016-09-16] MEDS: ENOXAPARIN SODIUM INJ 40 MG/0.4 ML DISP.SYRIN SUBCUT SCH (09:02)
[2016-09-16] MEDS: GUAIFENESIN 600 MG TABLET.SA PO SCH ×2 (09:03→21:33)
[2016-09-16] MEDS: PREDNISONE 20 MG TABLET PO SCH (09:03)
[2016-09-16] MEDS ORDERED: (PENDING PHARMACY ID) (Metformin Hcl [Metformin Hcl Er] 500 MG) PO SCH (10:00)
[2016-09-16] MEDS ORDERED: (PENDING PHARMACY ID) (Lisinopril [Prinivil 2.5 Mg Tablet] 2.5 MG) PO SCH (10:00)
[2016-09-16] MEDS ORDERED: (PENDING PHARMACY ID) (Solifenacin Succinate [Vesicare] 5 MG) PO SCH (10:00)
[2016-09-16] MEDS: HYDROCODONE/ACETAMINOPHEN 5-325 MG TABLET PO PRN ×3 (11:08→22:55)
[2016-09-16] MEDS ORDERED: TOLTERODINE TARTRATE 1 MG TABLET PO ONE (11:30)
[2016-09-16] MEDS ORDERED: FAMOTIDINE 20 MG TABLET PO ONE (11:30)
[2016-09-16] MEDS ORDERED: FLUTICASONE NASAL SPRAY 50 MCG/SPRY 120 SPRAY/16 GM NASL ONE (11:30)
[2016-09-16] MEDS ORDERED: FUROSEMIDE 40 MG TABLET PO ONE (11:30)
[2016-09-16] MEDS ORDERED: TIOTROPIUM BROMIDE DPI 5 CAP/KIT (18 MCG/CAP) IH ONE (11:30)
[2016-09-16] MEDS ORDERED: LISINOPRIL 5 MG TABLET PO ONE (11:30)
[2016-09-16] MEDS ORDERED: SERTRALINE HCL 50 MG TABLET PO ONE (11:30)
--- NOTE | 2016-09-16 11:34 | PDOC PROGRESS REPORT ---
Subjective Progress Note for:: 09/16/16 Subjective:: Patient is seen on morning rounds. He is resting comfortably in bed. He states his breathing is improved. He still appears slightly tachypneic even at rest. Denies any chest pain or dyspnea. Denies any nausea, vomiting, or abdominal pain. He is complaining of pain in his posterior neck, that is chronic in nature. Continues to have a productive cough with thick yellow sputum. He voices no other concerns at the present time. Physical Exam Vital Signs: Temp Pulse Resp BP Pulse Ox 97.7 F 57 L 22 H 125/66 95 09/16/16 07:53 09/16/16 08:19 09/16/16 08:19 09/16/16 07:53 09/16/16 08:19 Intake & Output 09/15/16 09/16/16 09/17/16 06:59 06:59 06:59 Intake Total 2462 Output Total 1995 Balance 467 Weight 95.3 kg 95 kg General appearance: PRESENT: no acute distress, disheveled, well-developed, well -nourished Head exam: PRESENT: atraumatic, normocephalic Eye exam: PRESENT: conjunctiva pink, EOMI, PERRLA. ABSENT: scleral icterus Ear exam: PRESENT: normal external ear exam Mouth exam: PRESENT: moist, tongue midline Neck exam: ABSENT: carotid bruit, JVD, lymphadenopathy, thyromegaly Respiratory exam: PRESENT: decreased breath sounds - left base, symmetrical, tachypnea Cardiovascular exam: PRESENT: RRR. ABSENT: diastolic murmur, rubs, systolic murmur Pulses: PRESENT: normal dorsalis pedis pul Vascular exam: PRESENT: normal capillary refill Rectal exam: PRESENT: deferred Extremities exam: PRESENT: full ROM. ABSENT: calf tenderness, clubbing, pedal edema Neurological exam: PRESENT: alert, awake, oriented to person, oriented to place , oriented to time, CN II-XII grossly intact. ABSENT: motor sensory deficit Psychiatric exam: PRESENT: appropriate affect, normal mood. ABSENT: homicidal ideation, suicidal ideation Skin exam: PRESENT: dry, intact, warm. ABSENT: cyanosis, rash Results Laboratory Results: 09/16/16 04:19 09/16/16 04:19 09/16/16 09/16/16 04:19 04:19 WBC 12.6 H RBC 3.69 L Hgb 11.3 L Hct 34.0 L MCV 92 MCH 30.6 MCHC 33.2 RDW 14.9 H Plt Count 176 Sodium 137.7 Potassium 3.9 Chloride 106 Carbon Dioxide 20 L Anion Gap 12 BUN 18 Creatinine 0.66 Est GFR ( Amer) > 60 Est GFR (Non-Af Amer) > 60 Glucose 199 H Calcium 9.2 Magnesium 1.3 L Total Bilirubin 0.6 AST 13 L ALT 20 L Alkaline Phosphatase 73 Total Protein 5.3 L Albumin 3.0 L Impressions: Chest X-Ray 09/16/16 06:00 IMPRESSION: Partial clearing of bibasilar airspace disease Assessment & Plan - Diagnosis (1) Acute on chronic respiratory failure with hypoxemia Is this a current diagnosis for this admission?: YesPlan: Improving with IV antibiotics, steroids and nebulizer treatments. Improvement in chest xray from today compared to one at admission. (2) LLL pneumonia Qualifiers: Pneumonia type: due to unspecified organism Qualified Code(s): J18.1 - Lobar pneumonia, unspecified organism Is this a current diagnosis for this admission?: YesPlan: Most likely GM + cocci, recent hospitalization 07/2016 will cover empirically for MRSA pending culture results (3) COPD exacerbation Is this a current diagnosis for this admission?: YesPlan: Continue nebulizers, antibiotics and steroids (4) Atrial fibrillation Qualifiers: Atrial fibrillation type: paroxysmal Qualified Code(s): I48.0 - Paroxysmal atrial fibrillation Is this a current diagnosis for this admission?: YesPlan: Continue current medications presently in sinus rhythm. Patient had been transitioned off of coumadin to aspirin by his primary care provider due to falls (5) Parkinsons disease Is this a current diagnosis for this admission?: YesPlan: Continue home medications. High risk for falls (6) History of pulmonary embolus (PE) Is this a current diagnosis for this admission?: YesPlan: Patient is no longer being anticoagulated (7) Diabetes mellitus type 2 in nonobese Is this a current diagnosis for this admission?: YesPlan: Continue current medications and sliding scale coverage - Time Time Spent with patient: 25-34 minutes Critical Time spent with patient: 15-24 minutes Medications reviewed and adjusted accordingly: Yes Anticipated discharge: Home with Homehealth
[2016-09-16] MEDS: CARBIDOPA/LEVODOPA 25-100 MG TABLET PO SCH ×2 (13:54→21:33)
[2016-09-16] MEDS: METFORMIN HCL 500 MG TABLET PO SCH (17:35)
[2016-09-16] MEDS: FAMOTIDINE 20 MG TABLET PO SCH (17:35)
[2016-09-16] MEDS: TOLTERODINE TARTRATE 1 MG TABLET PO SCH (21:33)
[2016-09-16] MEDS: MONTELUKAST SODIUM 10 MG TABLET PO SCH (21:33)
[2016-09-17] MEDS: ACETAMINOPHEN 325 MG TABLET PO PRN (00:31)
[2016-09-17] MEDS: HYDROCODONE/ACETAMINOPHEN 5-325 MG TABLET PO PRN ×5 (02:23→21:28)
[2016-09-17] MEDS ORDERED: DILTIAZEM HCL INJ 25 MG/5 ML VIAL ONE (02:29)
[2016-09-17] MEDS ORDERED: DILTIAZEM HCL 30 MG TABLET ONE (02:29)
[2016-09-17] MEDS ORDERED: DILTIAZEM HCL INJ 25 MG/5 ML VIAL IV ONE (03:00)
[2016-09-17] MEDS ORDERED: DILTIAZEM HCL 90 MG TABLET PO ONE (03:00)
[2016-09-17] MEDS: VANCOMYCIN HCL 1,250 MG in DEXTROSE 5%-WATER 250 ML IV SCH (03:45)
[2016-09-17 04:15] LABS: ANION GAP 10 (5-19); BLOOD UREA NITROGEN 21 mg/dL (7-20); CALCIUM 9.3 mg/dL (8.4-10.2); CARBON DIOXIDE 24 mmol/L (22-30); CHLORIDE 104 mmol/L (98-107); CREATININE RESULT 0.67 mg/dL (0.52-1.25); GLUCOSE 130 mg/dL (75-110); POTASSIUM 3.7 mmol/L (3.6-5.0); SODIUM 137.8 mmol/L (137-145)
[2016-09-17 04:17] LABS: HEMATOCRIT 37.5 % (37.9-51.0); HEMOGLOBIN 12.6 g/dL (13.5-17.0); HGB HCT DIFFERENCE 0.3; MEAN CORPUSCULAR HGB CONC 33.5 g/dL (32.0-36.0); MEAN CORPUSCULAR VOLUME 92 fl (80-97); RED BLOOD COUNT 4.06 10^6/uL (4.35-5.55); RED CELL DISTRIBUTION WIDTH 14.6 % (11.5-14.0); WHITE BLOOD COUNT 10.3 10^3/uL (4.0-10.5)
[2016-09-17 04:38] LABS: BASOPHILS % (MANUAL) 0 % (0-2); EOSINOPHILS % (MANUAL) 1 % (0-6); LYMPHOCYTES % (MANUAL) 23 % (13-45); NUCLEATED RED BLOOD CELLS 1 /100 WBC (0); TOTAL CELLS COUNTED 100
[2016-09-17 04:39] LABS: TOXIC VACUOLATION PRESENT
[2016-09-17 04:40] LABS: ANISOCYTOSIS SLIGHT; POIKILOCYTOSIS SLIGHT; ROULEAUX SLIGHT
[2016-09-17] MEDS: LANSOPRAZOLE 30 MG TAB.RAP.DR PO SCH ×2 (05:12→17:53)
[2016-09-17] MEDS: CARBIDOPA/LEVODOPA 25-100 MG TABLET PO SCH ×3 (05:12→21:28)
[2016-09-17] MEDS: CEFEPIME HCL 2 GM in DEXTROSE 5%-WATER 50 ML IV SCH ×3 (05:49→21:32)
[2016-09-17] MEDS: AZTREONAM 2 GM in DEXTROSE 5%-WATER 100 ML IV SCH ×3 (06:29→22:13)
[2016-09-17] MEDS: LEVALBUTEROL HCL NEB 1.25 MG/3 ML AMPUL NEB SCH ×2 (07:41→15:58)
[2016-09-17] MEDS: ENOXAPARIN SODIUM INJ 40 MG/0.4 ML DISP.SYRIN SUBCUT SCH (09:52)
[2016-09-17] MEDS: TOLTERODINE TARTRATE 1 MG TABLET PO SCH ×2 (09:53→21:28)
[2016-09-17] MEDS: METFORMIN HCL 500 MG TABLET PO SCH ×2 (09:54→17:52)
[2016-09-17] MEDS: GUAIFENESIN 600 MG TABLET.SA PO SCH ×2 (09:55→21:27)
[2016-09-17] MEDS: FAMOTIDINE 20 MG TABLET PO SCH ×2 (09:56→17:53)
[2016-09-17] MEDS: SERTRALINE HCL 50 MG TABLET PO SCH (09:56)
[2016-09-17] MEDS: LISINOPRIL 5 MG TABLET PO SCH (09:56)
[2016-09-17] MEDS: FLUTICASONE NASAL SPRAY 50 MCG/SPRY 120 SPRAY/16 GM NASL SCH (10:00)
[2016-09-17] MEDS ORDERED: PREDNISONE 20 MG TABLET PO SCH (10:00)
[2016-09-17] MEDS: TIOTROPIUM BROMIDE DPI 5 CAP/KIT (18 MCG/CAP) IH SCH (10:01)
[2016-09-17] MEDS: FUROSEMIDE 40 MG TABLET PO SCH (10:01)
--- NOTE | 2016-09-17 11:41 | PDOC PROGRESS REPORT ---
Subjective Progress Note for:: 09/17/16 Subjective:: Patient is seen on morning rounds. He is resting comfortably on the side of the bed. He states his breathing is improved. He is no longer tachypneic. Denies any chest pain or dyspnea. Denies any nausea, vomiting, or abdominal pain. He is complaining of pain in his posterior neck, and right shoulder that is chronic in nature. Continues to have a productive cough with thick yellow sputum. He voices no other concerns at the present time. Physical Exam Vital Signs: Temp Pulse Resp BP Pulse Ox 97.7 F 64 16 102/75 94 09/17/16 07:38 09/17/16 07:40 09/17/16 07:40 09/17/16 07:38 09/17/16 07:40 Intake & Output 09/16/16 09/17/16 09/18/16 06:59 06:59 06:59 Intake Total 2462 1933 Output Total 1994 2925 Balance 467 -992 Weight 95 kg 93.8 kg General appearance: PRESENT: no acute distress, well-developed, well-nourished Head exam: PRESENT: atraumatic, normocephalic Eye exam: PRESENT: conjunctiva pink, EOMI, PERRLA. ABSENT: scleral icterus Ear exam: PRESENT: normal external ear exam Mouth exam: PRESENT: moist, tongue midline Neck exam: ABSENT: carotid bruit, JVD, lymphadenopathy, thyromegaly Respiratory exam: PRESENT: clear to auscultation alfonso, decreased breath sounds - left base. ABSENT: rales, rhonchi, wheezes Cardiovascular exam: PRESENT: irregular rhythm, +S1, +S2. ABSENT: diastolic murmur, rubs, systolic murmur Pulses: PRESENT: normal dorsalis pedis pul Vascular exam: PRESENT: normal capillary refill GI/Abdominal exam: PRESENT: normal bowel sounds, soft. ABSENT: distended, guarding, mass, organolmegaly, rebound, tenderness Rectal exam: PRESENT: deferred Extremities exam: PRESENT: full ROM. ABSENT: calf tenderness, clubbing, pedal edema Neurological exam: PRESENT: alert, awake, oriented to person, oriented to place , oriented to time, oriented to situation, CN II-XII grossly intact. ABSENT: motor sensory deficit Psychiatric exam: PRESENT: appropriate affect, normal mood. ABSENT: homicidal ideation, suicidal ideation Skin exam: PRESENT: dry, intact, warm. ABSENT: cyanosis, rash Results Laboratory Results: 09/17/16 03:41 09/17/16 03:41 09/17/16 09/17/16 03:41 03:41 WBC 10.3 RBC 4.06 L Hgb 12.6 L Hct 37.5 L MCV 92 MCH 31.0 MCHC 33.5 RDW 14.6 H Plt Count 185 Seg Neutrophils % Not Reportable Lymphocytes % Not Reportable Monocytes % Not Reportable Eosinophils % Not Reportable Basophils % Not Reportable Absolute Neutrophils Not Reportable Absolute Lymphocytes Not Reportable Absolute Monocytes Not Reportable Absolute Eosinophils Not Reportable Absolute Basophils Not Reportable Sodium 137.8 Potassium 3.7 Chloride 104 Carbon Dioxide 24 Anion Gap 10 BUN 21 H Creatinine 0.67 Est GFR ( Amer) > 60 Est GFR (Non-Af Amer) > 60 Glucose 130 H Calcium 9.3 09/15/16 06:05 Sputum Gram Stain - Final 09/15/16 06:05 Sputum Sputum Culture - Final NORMAL MARIANGEL Impressions: Chest X-Ray 09/16/16 06:00 IMPRESSION: Partial clearing of bibasilar airspace disease Assessment & Plan - Diagnosis (1) Acute on chronic respiratory failure with hypoxemia Is this a current diagnosis for this admission?: YesPlan: Improving with IV antibiotics, steroids and nebulizer treatments. Improvement in chest xray from today compared to one at admission. (2) LLL pneumonia Qualifiers: Pneumonia type: due to unspecified organism Qualified Code(s): J18.1 - Lobar pneumonia, unspecified organism Is this a current diagnosis for this admission?: YesPlan: Most likely GM + cocci, recent hospitalization 07/2016 will cover empirically for MRSA pending culture results (3) COPD exacerbation Is this a current diagnosis for this admission?: YesPlan: Continue nebulizers, antibiotics and steroids (4) Atrial fibrillation Qualifiers: Atrial fibrillation type: paroxysmal Qualified Code(s): I48.0 - Paroxysmal atrial fibrillation Is this a current diagnosis for this admission?: YesPlan: Will add Cardiazem for better rate control. Patient had been transitioned off of coumadin to aspirin by his primary care provider due to falls. Patient does not want to take coumadin either. (5) Parkinsons disease Is this a current diagnosis for this admission?: YesPlan: Continue home medications. High risk for falls (6) History of pulmonary embolus (PE) Is this a current diagnosis for this admission?: Yes (7) Diabetes mellitus type 2 in nonobese Is this a current diagnosis for this admission?: YesPlan: Continue current medications and sliding scale coverage - Time Time Spent with patient: 25-34 minutes Critical Time spent with patient: 15-24 minutes Medications reviewed and adjusted accordingly: Yes Anticipated discharge: Home with Homehealth
[2016-09-17] MEDS: DILTIAZEM HCL 60 MG TABLET PO SCH ×3 (13:46→23:24)
[2016-09-17] MEDS: INSULIN LISPRO 100 UNIT/ML 3 ML VIAL SUBCUT PRN ×2 (17:52→22:40)
[2016-09-17] MEDS: MONTELUKAST SODIUM 10 MG TABLET PO SCH (21:28)
[2016-09-18] MEDS: LEVALBUTEROL HCL NEB 1.25 MG/3 ML AMPUL NEB SCH ×2 (01:01→07:48)
[2016-09-18] MEDS: CEFEPIME HCL 2 GM in DEXTROSE 5%-WATER 50 ML IV SCH (05:27)
[2016-09-18] MEDS: DILTIAZEM HCL 60 MG TABLET PO SCH (05:28)
[2016-09-18] MEDS: CARBIDOPA/LEVODOPA 25-100 MG TABLET PO SCH ×3 (05:28→22:50)
[2016-09-18] MEDS: LANSOPRAZOLE 30 MG TAB.RAP.DR PO SCH ×2 (05:28→09:52)
[2016-09-18] MEDS: HYDROCODONE/ACETAMINOPHEN 5-325 MG TABLET PO PRN ×3 (06:09→16:40)
[2016-09-18] MEDS: AZTREONAM 2 GM in DEXTROSE 5%-WATER 100 ML IV SCH (06:09)
[2016-09-18] MEDS: ENOXAPARIN SODIUM INJ 40 MG/0.4 ML DISP.SYRIN SUBCUT SCH (08:50)
[2016-09-18] MEDS: FUROSEMIDE 40 MG TABLET PO SCH (08:51)
[2016-09-18] MEDS: METFORMIN HCL 500 MG TABLET PO SCH ×2 (08:52→16:21)
[2016-09-18] MEDS: ACETAMINOPHEN 325 MG TABLET PO PRN (08:52)
[2016-09-18] MEDS: FLUTICASONE NASAL SPRAY 50 MCG/SPRY 120 SPRAY/16 GM NASL SCH (09:46)
[2016-09-18] MEDS: CEFUROXIME 500 MG TABLET PO SCH ×2 (09:46→17:06)
[2016-09-18] MEDS: TIOTROPIUM BROMIDE DPI 5 CAP/KIT (18 MCG/CAP) IH SCH (09:47)
[2016-09-18] MEDS: TOLTERODINE TARTRATE 1 MG TABLET PO SCH ×2 (09:47→22:50)
[2016-09-18] MEDS: DILTIAZEM HCL 120 MG CAP.SR.24H PO SCH ×2 (09:50→22:50)
[2016-09-18] MEDS: FAMOTIDINE 20 MG TABLET PO SCH ×2 (09:50→17:06)
[2016-09-18] MEDS: SERTRALINE HCL 50 MG TABLET PO SCH (09:50)
[2016-09-18] MEDS: LISINOPRIL 5 MG TABLET PO SCH (09:50)
[2016-09-18] MEDS: GUAIFENESIN 600 MG TABLET.SA PO SCH ×2 (09:50→22:50)
[2016-09-18] MEDS: AZITHROMYCIN 250 MG TABLET PO SCH (09:51)
[2016-09-18] MEDS: PREDNISONE 20 MG TABLET PO SCH (09:51)
--- NOTE | 2016-09-18 13:31 | PDOC PROGRESS REPORT ---
Subjective Progress Note for:: 09/18/16 Subjective:: The patient was seen earlier today on rounds. Patient admits to ongoing shortness of breath but overall this is improved. The patient initially stated he felt that he could go home today however his is sick at home and he does not want to go home. The patient denies any nausea, vomiting, diarrhea, dizziness, chest pain, heart palpitations, fevers, or chills. The patient has remained afebrile. Blood pressures have been in a good range. When prompted the patient voices no other concerns at this time. Review of systems: The rest of the review of systems is negative. Physical Exam Vital Signs: Temp Pulse Resp BP Pulse Ox 98.0 F 43 L 18 110/63 97 09/18/16 11:08 09/18/16 11:08 09/18/16 11:08 09/18/16 11:08 09/18/16 11:08 Intake & Output 09/16/16 09/17/16 09/18/16 23:59 23:59 23:59 Intake Total 2583 2236 879 Output Total 2745 2645 1250 Balance -162 289 -371 Weight 95 kg 93.8 kg 93.8 kg General appearance: PRESENT: no acute distress, cooperative, well-developed, well-nourished Head exam: PRESENT: atraumatic, normocephalic Eye exam: PRESENT: conjunctiva pink, EOMI, PERRLA. ABSENT: scleral icterus Ear exam: PRESENT: normal external ear exam Mouth exam: PRESENT: moist, tongue midline Neck exam: ABSENT: carotid bruit, JVD, lymphadenopathy, thyromegaly Respiratory exam: PRESENT: rhonchi, symmetrical, unlabored, wheezes. ABSENT: rales, tachypnea Cardiovascular exam: PRESENT: RRR. ABSENT: diastolic murmur, rubs, systolic murmur Pulses: PRESENT: normal dorsalis pedis pul Vascular exam: PRESENT: normal capillary refill GI/Abdominal exam: PRESENT: normal bowel sounds, soft. ABSENT: distended, guarding, mass, organolmegaly, rebound, tenderness Rectal exam: PRESENT: deferred Extremities exam: PRESENT: full ROM. ABSENT: calf tenderness, clubbing, pedal edema Neurological exam: PRESENT: alert, awake, oriented to person, oriented to place , oriented to time, oriented to situation, CN II-XII grossly intact. ABSENT: motor sensory deficit Psychiatric exam: PRESENT: appropriate affect, normal mood. ABSENT: homicidal ideation, suicidal ideation Skin exam: PRESENT: dry, intact, warm. ABSENT: cyanosis, rash Results Laboratory Results: 09/17/16 03:41 09/17/16 03:41 09/15/16 06:05 Sputum Gram Stain - Final 09/15/16 06:05 Sputum Sputum Culture - Final NORMAL MARIANGEL Impressions: Chest X-Ray 09/16/16 06:00 IMPRESSION: Partial clearing of bibasilar airspace disease Assessment & Plan - Diagnosis (1) LLL pneumonia Qualifiers: Pneumonia type: due to unspecified organism Qualified Code(s): J18.1 - Lobar pneumonia, unspecified organism Is this a current diagnosis for this admission?: YesPlan: Will transition to oral antibiotic therapy. (2) COPD exacerbation Is this a current diagnosis for this admission?: YesPlan: Continue scheduled nebs as well as as needed nebulizers, wean steroids, and wean supplemental oxygen. (3) Acute on chronic respiratory failure with hypoxemia Is this a current diagnosis for this admission?: YesPlan: Will continue supplemental O2. (4) Sepsis Qualifiers: Sepsis type: sepsis due to unspecified organism Qualified Code(s): A41.9 - Sepsis, unspecified organism Is this a current diagnosis for this admission?: YesPlan: Much improved Selected Entries 09/15/16 09/15/16 09/15/16 03:24 03:59 06:00 Temperature 100.8 F H 100.2 F Respiratory 30 H Rate 09/14/16 09/15/16 22:44 06:45 WBC 20.3 H 15.6 H (5) Atrial fibrillation Qualifiers: Atrial fibrillation type: paroxysmal Qualified Code(s): I48.0 - Paroxysmal atrial fibrillation Is this a current diagnosis for this admission?: YesPlan: Will continue home medications. (6) Parkinsons disease Is this a current diagnosis for this admission?: YesPlan: Will continue home medications (7) Diabetes mellitus type 2 in nonobese Is this a current diagnosis for this admission?: YesPlan: Will continue home medications. (8) Tobacco dependency Is this a current diagnosis for this admission?: YesPlan: Will continue 09/15/16 04:19 Nicotine [Nicoderm 21 mg/24 Hr Transderm Patch] 1 each TD DAILYP PRN (9) History of Magi's granulomatosis Is this a current diagnosis for this admission?: Yes (10) History of pulmonary embolus (PE) Is this a current diagnosis for this admission?: Yes - Time Time Spent with patient: 25-34 minutes Medications reviewed and adjusted accordingly: Yes Anticipated discharge: Home Within: within 24 hours
[2016-09-18] MEDS: INSULIN LISPRO 100 UNIT/ML 3 ML VIAL SUBCUT PRN (16:20)
[2016-09-18] MEDS: MONTELUKAST SODIUM 10 MG TABLET PO SCH (22:50)
[2016-09-19] MEDS: CARBIDOPA/LEVODOPA 25-100 MG TABLET PO SCH (06:20)
[2016-09-19] MEDS: TOLTERODINE TARTRATE 1 MG TABLET PO SCH (09:22)
[2016-09-19] MEDS: ENOXAPARIN SODIUM INJ 40 MG/0.4 ML DISP.SYRIN SUBCUT SCH (09:22)
[2016-09-19] MEDS: METFORMIN HCL 500 MG TABLET PO SCH (09:22)
[2016-09-19] MEDS: FLUTICASONE NASAL SPRAY 50 MCG/SPRY 120 SPRAY/16 GM NASL SCH (09:22)
[2016-09-19] MEDS: TIOTROPIUM BROMIDE DPI 5 CAP/KIT (18 MCG/CAP) IH SCH (09:22)
[2016-09-19] MEDS: CEFUROXIME 500 MG TABLET PO SCH (09:23)
[2016-09-19] MEDS: FAMOTIDINE 20 MG TABLET PO SCH (09:23)
[2016-09-19] MEDS: SERTRALINE HCL 50 MG TABLET PO SCH (09:23)
[2016-09-19] MEDS: LANSOPRAZOLE 30 MG TAB.RAP.DR PO SCH (09:23)
[2016-09-19] MEDS: GUAIFENESIN 600 MG TABLET.SA PO SCH (09:23)
[2016-09-19] MEDS: PREDNISONE 20 MG TABLET PO SCH (09:23)
[2016-09-19] MEDS: LISINOPRIL 5 MG TABLET PO SCH (09:23)
[2016-09-19] MEDS: AZITHROMYCIN 250 MG TABLET PO SCH (09:23)
[2016-09-19] MEDS: DILTIAZEM HCL 120 MG CAP.SR.24H PO SCH (09:24)
[2016-09-19] MEDS: FUROSEMIDE 40 MG TABLET PO SCH (09:24)
[2016-09-19 10:34] VITALS: BP 112/52
--- NOTE | 2016-09-19 12:13 | PDOC DISCHARGE SUMMARY ---
General - Admit/Disc Date/PCP Admission Date/Primary Care Provider: 09/15/16 04:27 Discharge Date: 09/19/16 - Discharge Diagnosis (1) Acute on chronic respiratory failure with hypoxemia Is this a current diagnosis for this admission?: YesSummary: Resolved. No oxygen requirement at discharge (2) LLL pneumonia Is this a current diagnosis for this admission?: YesSummary: Improving will continue po antibiotics to complete course (3) COPD exacerbation Is this a current diagnosis for this admission?: YesSummary: Continue inhalers and prednisone taper (4) Atrial fibrillation Is this a current diagnosis for this admission?: YesSummary: Chronic rate controlled. 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, patient is adamant he 's not going back on any blood thinners (5) Parkinsons disease Is this a current diagnosis for this admission?: YesSummary: Continue Sinemet (6) History of pulmonary embolus (PE) Is this a current diagnosis for this admission?: YesSummary: Greater than 5 years ago (7) Diabetes mellitus type 2 in nonobese Is this a current diagnosis for this admission?: YesSummary: Continue metformin and dietary modifications - Additional Information Resuscitation Status: Full Code Discharge Diet: Diabetic Discharge Activity: Activity As Tolerated, Balance Activity w/Rest Home Medications: Carbidopa/Levodopa [Sinemet 25-100 mg Tablet] 1.5 tab PO Q8 09/15/16 Famotidine [Pepcid 20 mg Tablet] 20 mg PO BID 09/15/16 Fluticasone Propionate [Flonase Nasal [place] 50 Mcg/[place] 16 gm] 1 spray NASL DAILY 09/15/16 Furosemide [Lasix] 40 mg PO DAILY 09/15/16 Lisinopril [Prinivil 2.5 mg Tablet] 2.5 mg PO DAILY 09/15/16 Metformin HCl [Metformin HCl ER] 500 mg PO DAILY 09/15/16 Omeprazole 40 mg PO DAILY 09/15/16 Potassium Chloride [K-Tab ER] 20 meq PO BID 09/15/16 Sertraline HCl [Zoloft 50 mg Tablet] 50 mg PO DAILY 09/15/16 Solifenacin Succinate [Vesicare] 5 mg PO DAILY 09/15/16 Tiotropium [place] [Spiriva Handihaler 5 Cap/Kit (18 Mcg/Cap)] 1 puff IH DAILY 09/15/16 Acetaminophen [Tylenol 325 mg Tablet] 650 mg PO Q4HP PRN tablet 09/19/16 Azithromycin [Zithromax 250 mg Tablet] 250 mg PO DAILY #5 tablet 09/19/16 Benzonatate [Tessalon Perles 100 mg Capsule] 100 mg PO Q8HP PRN #30 capsule Cefuroxime Axetil [Ceftin 500 mg Tablet] 500 mg PO BID #12 tablet 09/19/16 Diltiazem HCl [Diltiazem 24Hr Cd] 240 mg PO DAILY #30 cap.er.24h 09/19/16 Montelukast Sodium [Singulair 10 mg Tablet] 10 mg PO QHS #30 tablet 09/19/16 Prednisone [Deltasone 20 mg Tablet] 20 mg PO DAILY #4 tablet 09/19/16 History of Present Illness Patient complains of: Shortness of breath , cough and fever History of Present Illness: BRITTANY SALCEDO is a 76 year old male male with underlying non home oxygen dependent COPD, Parkinson's disease, type II diabetes, atrial fibrillation not on home anticoagulation, GERD and arthritis. Who presents to emergency room because of increasing shortness of breath and dyspnea for the last 2 days. He states he's had a progressive generalized weakness that accompanying the shortness of breath. He normally ambulates with a walker home , he's been unable to ambulate. He has had subjective fevers and chills, and a productive cough. He denies any abdominal pain, nausea, vomiting, diarrhea. He underwent workup in the emergency room. He was found to have borderline hypoxemia on room air. Chest x-ray showed possible left lower lobe infiltrate. He had blood cultures 2 obtained and then started on broad-spectrum right IV antibiotics. He was referred to the hospitalist service for admission. Hospital Course Hospital Course: He was admitted to the [facility] on telemetry. He had IV steroids, IV antibiotics and nebulized treatments [id number]. This cough began to loosen. Over the next 2 days his dyspnea greatly improved. His chest chest x-ray showed improvement of his left lower lobe infiltrate. He was able to be weaned to room air. Yesterday his eye IV antibiotics were discontinued and he was transitioned to oral. Today he feels ready for discharge. Physical Exam Vital Signs: Temp Pulse Resp BP Pulse Ox 98.5 F 65 16 112/52 L 97 09/19/16 10:26 09/19/16 10:26 09/19/16 10:26 09/19/16 10:26 09/19/16 10:26 Intake & Output 09/18/16 09/19/16 09/20/16 06:59 06:59 06:59 Intake Total 2360 1045 Output Total 2600 875 Balance -240 170 Weight 93.8 kg General appearance: PRESENT: no acute distress, well-developed, well-nourished Head exam: PRESENT: atraumatic, normocephalic Eye exam: PRESENT: conjunctiva pink, EOMI, PERRLA. ABSENT: scleral icterus Ear exam: PRESENT: normal external ear exam Mouth exam: PRESENT: moist, tongue midline Neck exam: ABSENT: carotid bruit, JVD, lymphadenopathy, thyromegaly Respiratory exam: PRESENT: decreased breath sounds - left base, symmetrical, unlabored Cardiovascular exam: PRESENT: irregular rhythm, +S1, +S2 Pulses: PRESENT: normal dorsalis pedis pul Vascular exam: PRESENT: normal capillary refill GI/Abdominal exam: PRESENT: normal bowel sounds, soft. ABSENT: distended, guarding, mass, organolmegaly, rebound, tenderness Rectal exam: PRESENT: deferred Extremities exam: PRESENT: full ROM. ABSENT: calf tenderness, clubbing, pedal edema Neurological exam: PRESENT: alert, awake, oriented to person, oriented to place , oriented to time, oriented to situation, CN II-XII grossly intact. ABSENT: motor sensory deficit Psychiatric exam: PRESENT: appropriate affect, normal mood. ABSENT: homicidal ideation, suicidal ideation Skin exam: PRESENT: dry, intact, warm. ABSENT: cyanosis, rash Results Laboratory Results: 09/17/16 03:41 09/17/16 03:41 Impressions: Chest X-Ray 09/16/16 06:00 IMPRESSION: Partial clearing of bibasilar airspace disease Qualifiers PATEINT BEING DISCHARGED WITH ANY OF THE FOLLOWING DIAGNOSIS?: No Plan Discharge Plan: Home with . He will continue home health, and physical therapy Time Spent: Less than 30 Minutes
== END 2016-09-19 10:45 | disposition home health service (06) | DRG 871 ==
LOC: ER 21:12 → EH 09-15 04:27 → UNDOADMIN 09-15 04:59 → 3N 09-15 06:43 → 5 09-18 18:23
PROVIDERS: ADMIT Family Medicine; ATTEND Family Medicine
PROC: 3E0F73Z Introduction of Anti-inflammatory into Respiratory Tract, Via Natural or Artificial Opening (ICD-10-PCS; principal; 2016-09-15)
DX: A41.9 Sepsis, unspecified organism (principal); J18.1 Lobar pneumonia, unspecified organism; J96.21 Acute and chronic respiratory failure with hypoxia; J44.1 Chronic obstructive pulmonary disease with (acute) exacerbation; I67.3 Progressive vascular leukoencephalopathy; M31.30 Wegener's granulomatosis without renal involvement; R65.20 Severe sepsis without septic shock; G20 Parkinson's disease; I48.91 Unspecified atrial fibrillation; K21.9 Gastro-esophageal reflux disease without esophagitis; F02.80 Dementia in other diseases classified elsewhere, unspecified severity, without behavioral disturbance, psychotic disturbance, mood disturbance, and anxiety; M19.90 Unspecified osteoarthritis, unspecified site; E78.5 Hyperlipidemia, unspecified; E11.51 Type 2 diabetes mellitus with diabetic peripheral angiopathy without gangrene; J44.9 Chronic obstructive pulmonary disease, unspecified; M25.511 Pain in right shoulder; N20.0 Calculus of kidney; Z86.711 Personal history of pulmonary embolism; Z90.49 Acquired absence of other specified parts of digestive tract; F17.200 Nicotine dependence, unspecified, uncomplicated; Z82.49 Family history of ischemic heart disease and other diseases of the circulatory system; Z83.3 Family history of diabetes mellitus; Z88.6 Allergy status to analgesic agent
CPT/HCPCS: 36415; 71020; 80048; 80053; 80076; 80202; 81001; 82962; 83735; 85025; 85027; 87040; 87070; 87205; 87804; 94640; 94667; 94668; 94799; 96365; 96375; 99285; G8978-GP; G8979-GP; J0692; J1650; J1815; J1956; J2930; J3370; J3490; J7060; J7512; J7620

== ENCOUNTER 2016-11-08 16:50 | Emergency (ER) | payer MEDICARE ==
[2016-11-08 16:56] VITALS: BP 133/63
--- NOTE | 2016-11-08 17:24 | ER Document Report ---
ED General - General Chief Complaint: Skin Problem Stated Complaint: LUMP ON RIGHT ARM TRAVEL OUTSIDE OF THE [place] IN LAST 30 DAYS: No - HPI Patient complains to provider of: lump right arm Notes: Patient has a lump in the right antecubital fossa of the right arm now has some mild swelling of the medial epicondyles of the elbow states lump has been there for approximately a month swelling started last night. Patient does have a recent hospital admission with IV placement at this site. Denies fevers chills nausea vomiting. Patient has a history of atrophic fibrillation has been taken off his Coumadin due to complications. Patient is currently only anticoagulated with 325 aspirin. - Related Data Allergies/Adverse Reactions: morphine Allergy (Verified 11/08/16 16:55) Past Medical History - Social History Smoking Status: Current Every Day Smoker Frequency of alcohol use: Rare Drug Abuse: None Family History: CAD, DM Patient has suicidal ideation: No Patient has homicidal ideation: No - Past Medical History Cardiac Medical History: Reports: Hx Atrial Fibrillation, Hx Hypercholesterolemia, Hx Hypertension, Hx Peripheral Vascular Disease, Hx Pulmonary Embolism - History of Denies: Hx Congestive Heart Failure, Hx Heart Attack Pulmonary Medical History: Reports: Hx COPD, Hx Pneumonia Neurological Medical History: Denies: Hx Seizures Endocrine Medical History: Reports: Hx Diabetes Mellitus Type 2. Denies: Hx Diabetes Mellitus Type 1, Hx Hyperthyroidism, Hx Hypothyroidism Renal/ Medical History: Reports: Hx Kidney Stones - Incidental finding on CT scan 3 months ago.. Denies: Hx Peritoneal Dialysis GI Medical History: Reports: Hx Gastroesophageal Reflux Disease. Denies: Hx Cirrhosis, Hx Hepatitis Musculoskeltal Medical History: Reports Hx Arthritis Skin Medical History: Denies Hx Eczema, Denies Hx Psoriasis Psychiatric Medical History: Reports: Hx Dementia - BINSWANGER'S Denies: Hx Depression Infectious Medical History: Denies: Hx Hepatitis Past Surgical History: Reports: Hx Abdominal Surgery - abdominal hernia, hemorrhoidectomy, AAA, Hx Cardiac Surgery, Hx Cholecystectomy, Hx Herniorrhaphy , Hx Vascular Surgery - AAA REPAIR - Immunizations Hx Diphtheria, Pertussis, Tetanus Vaccination: Yes - 2012 Hx Pneumococcal Vaccination: 05/03/16 Review of Systems - Review of Systems Constitutional: No symptoms reported EENT: No symptoms reported Cardiovascular: No symptoms reported Respiratory: No symptoms reported Gastrointestinal: No symptoms reported Genitourinary: No symptoms reported Male Genitourinary: No symptoms reported Musculoskeletal: Other - Arm lump right antecubital fossa Skin: No symptoms reported Hematologic/Lymphatic: No symptoms reported Neurological/Psychological: No symptoms reported Physical Exam - Vital signs Vitals: Temp Pulse Resp BP Pulse Ox 98.0 F 61 20 133/63 H 98 11/08/16 16:55 11/08/16 16:55 11/08/16 16:55 11/08/16 16:55 11/08/16 16:55 Interpretation: Normal - General General appearance: Appears well, Alert - HEENT Head: Normocephalic, Atraumatic Eyes: Normal Pupils: PERRL - Respiratory Respiratory status: No respiratory distress Chest status: Nontender Breath sounds: Normal Chest palpation: Normal - Cardiovascular Rhythm: Regular Heart sounds: Normal auscultation Murmur: No - Abdominal Inspection: Normal Distension: No distension Bowel sounds: Normal Tenderness: Nontender Organomegaly: No organomegaly - Back Back: Normal, Nontender - Extremities General upper extremity: Normal color, Normal ROM, Normal temperature, Other. No: Normal inspection - Patient has a palpable lump in the right antecubital fossa some mild swelling of the right medial epicondyle General lower extremity: Normal inspection, Nontender, Normal color, Normal ROM , Normal temperature, Normal weight bearing. No: Erin's sign - Neurological Neuro grossly intact: Yes Cognition: Normal Orientation: AAOx4 [place] Coma Scale Eye Opening: Spontaneous [place] Coma Scale Verbal: Oriented [place] Coma Scale Motor: Obeys Commands [place] Coma Scale Total: 15 Speech: Normal Motor strength normal: LUE, RUE, LLE, RLE Sensory: Normal - Psychological Associated symptoms: Normal affect, Normal mood - Skin Skin Temperature: Warm Skin Moisture: Dry Skin Color: Normal Course - Re-evaluation Re-evalutation: 11/08/16 20:48 Bedside ultrasound shows that the lump is consistent with superficial thrombophlebitis. Patient does have small blood clot the vein is noncompressible at the site. More likely this is etiology the patient's pain and swelling. Patient was encouraged to continue with his aspirin to place warm compresses on the site patient was encouraged to return to the ER follow- up with primary care physician the swelling worsen. Patient was appreciative of his care discharged home - Vital Signs Vital signs: Temp Pulse Resp BP Pulse Ox 98.0 F 61 20 133/63 H 98 11/08/16 16:55 11/08/16 16:55 11/08/16 16:55 11/08/16 16:55 11/08/16 16:55 Discharge - Discharge Clinical Impression: Superficial thrombophlebitis of arm Qualifiers: Laterality: right Qualified Code(s): I80.8 - Phlebitis and thrombophlebitis of other sites Condition: Stable Disposition: HOME, SELF-CARE Instructions: Superficial Phlebitis ([facility]) Additional Instructions: Please apply warm compresses. He may continue to take your aspirin as prescribed. You may also take Tylenol for pain control. Please follow-up with your primary care physician in one week for reevaluation return to the ER if symptoms worsen. Referrals: DOUG PARMAR MD [Primary Care Provider] - Follow up as needed
== END 2016-11-08 17:24 | disposition home or self-care (01) ==
LOC: ER 16:50
DX: I80.8 Phlebitis and thrombophlebitis of other sites (principal); R22.31 Localized swelling, mass and lump, right upper limb; M79.89 Other specified soft tissue disorders; F17.200 Nicotine dependence, unspecified, uncomplicated
CPT/HCPCS: 99283

== ENCOUNTER → 2016-11-11 | Outpatient (CLI) | payer MEDICARE | LOC: RAD 13:35 | PROVIDERS: ATTEND Psychiatry & Neurology Neurology | DX: R29.2 Abnormal reflex (principal) | CPT/HCPCS: 72156; 72157; A9577 ==

== ENCOUNTER 2017-03-31 01:08 | Observation (INO) | payer MEDICARE ==
[2017-03-31] MEDS ORDERED: ASPIRIN 81 MG TABLET, CHEWABLE PO ONE (01:10)
--- NOTE | 2017-03-31 01:34 | ER Document Report ---
ED General - General Chief Complaint: Chest Pain Stated Complaint: CHEST PAIN Time Seen by Provider: 03/31/17 01:18 Notes: Patient is a 77-year-old male who presents with complaint of chest pain. Substernal nonradiating. No difficulty breathing. No fevers. At around 8:30 PM tonight. He has no history of coronary disease. He says 16 years ago he had a pulmonary embolism. He says this pain feels very similar to the pain he had when he had his PE. No recent leg pain. Patient has some chronic lower extremity edema that is unchanged. No fevers or infections. No abdominal pain. He does have history of a abdominal aortic aneurysm repair but has had no abdominal pain or problems with this. No other complaints at this time. TRAVEL OUTSIDE OF THE [place] IN LAST 30 DAYS: No - Related Data Allergies/Adverse Reactions: morphine Allergy (Verified 11/08/16 16:55) Past Medical History - Social History Smoking Status: Unknown if Ever Smoked Frequency of alcohol use: None Drug Abuse: None Family History: CAD, DM - Past Medical History Cardiac Medical History: Reports: Hx Atrial Fibrillation, Hx Hypercholesterolemia, Hx Hypertension, Hx Peripheral Vascular Disease, Hx Pulmonary Embolism - History of Denies: Hx Congestive Heart Failure, Hx Heart Attack Pulmonary Medical History: Reports: Hx COPD, Hx Pneumonia Neurological Medical History: Denies: Hx Seizures Endocrine Medical History: Reports: Hx Diabetes Mellitus Type 2. Denies: Hx Diabetes Mellitus Type 1, Hx Hyperthyroidism, Hx Hypothyroidism Renal/ Medical History: Reports: Hx Kidney Stones - Incidental finding on CT scan 3 months ago.. Denies: Hx Peritoneal Dialysis GI Medical History: Reports: Hx Gastroesophageal Reflux Disease. Denies: Hx Cirrhosis, Hx Hepatitis Musculoskeltal Medical History: Reports Hx Arthritis Skin Medical History: Denies Hx Eczema, Denies Hx Psoriasis Psychiatric Medical History: Reports: Hx Dementia - BINSWANGER'S Denies: Hx Depression Infectious Medical History: Denies: Hx Hepatitis Past Surgical History: Reports: Hx Abdominal Surgery - abdominal hernia, hemorrhoidectomy, AAA, Hx Cardiac Surgery, Hx Cholecystectomy, Hx Herniorrhaphy , Hx Vascular Surgery - AAA REPAIR - Immunizations Hx Diphtheria, Pertussis, Tetanus Vaccination: Yes - 2012 Hx Pneumococcal Vaccination: 05/03/16 Review of Systems - Review of Systems Notes: My Normal Review Basic REVIEW OF SYSTEMS: CONSTITUTIONAL : Denies fever, chills, or sweats. Denies recent illness. EENT: Denies eye, ear, throat, or mouth pain or symptoms. Denies nasal or sinus congestion. CARDIOVASCULAR: Chest pain RESPIRATORY: Denies cough, cold, or chest congestion. Denies shortness of breath, difficulty breathing, or wheezing. GASTROINTESTINAL: Denies abdominal pain. Denies nausea, vomiting, or diarrhea. MUSCULOSKELETAL: Denies neck or back pain or joint pain or swelling. SKIN: Denies rash or skin lesions. NEUROLOGICAL: Denies altered mental status or loss of consciousness. Denies headache. Denies weakness or paralysis or loss of use of either side. Denies problems with gait or speech. Denies sensory or motor loss. ALL OTHER SYSTEMS REVIEWED AND NEGATIVE. Physical Exam - Vital signs Vitals: Temp Pulse Resp BP Pulse Ox 97.8 F 67 26 H 114/71 96 03/31/17 01:26 03/31/17 01:26 03/31/17 01:26 03/31/17 01:26 03/31/17 01:26 - Notes Notes: General Appearance: Well nourished, alert, cooperative, no acute distress, no obvious discomfort. Well-appearing. Vitals: reviewed, See vital signs table. Head: no swelling or tenderness to the head Eyes: PERRL, EOMI, Conjuctiva clear Mouth: No decreasd moisture Throat: No tonsillar inflammation, No airway obstruction, No lymphadenopathy Neck: Supple, no neck tenderness, No thyromegaly Chest wall: No reproducible pain to palpation of anterior chest wall. Lungs: No wheezing, No rales, No rhonci, No accessory muscle use, good air exchange bilaterally. Heart: Normal rate, Regular rythm, No murmur, no rub Abdomen: Normal BS, soft, No rigidity, No abdominal tenderness, No guarding, no rebound. Large scar on abdomen from previous surgery. Extremities: strength 5/5 in all extremities, good pulses in all extremities, no swelling or tenderness in the extremities, no edema. Skin: warm, dry, appropriate color, no rash Neuro: speech clear, oriented x 3, normal affect, responds appropriately to questions. Course - Re-evaluation Re-evalutation: 03/31/17 04:14 Patient to be admitted to telemetry observation. I did speak with the hospitalist about the patient requested admission for his chest pain. Dr. Stout agrees to admit the patient for further workup of his chest pain. Dictation of this chart was performed using voice recognition software; therefore, there may be some unintended grammatical errors. - Vital Signs Vital signs: Temp Pulse Resp BP Pulse Ox 97.8 F 67 23 H 114/71 98 03/31/17 01:26 03/31/17 01:26 03/31/17 02:09 03/31/17 01:26 03/31/17 02:09 - Laboratory Result Diagrams: 03/31/17 01:22 03/31/17 01:22 Laboratory results interpreted by me: 03/31/17 03/31/17 01:22 01:22 RBC 4.22 L Hgb 13.3 L RDW 14.4 H Potassium 3.3 L Chloride 109 H BUN 21 H Glucose 140 H AST 14 L ALT 20 L Creatine Kinase < 20 L Total Protein 5.2 L Albumin 3.1 L - EKG Interpretation by Me Additional EKG results interpreted by me: 03/31/17 01:34 EKG is reviewed and interpreted by me. EKG shows normal sinus rhythm with a rate of [address] segment elevation or depression. No ischemic T-wave inversions. UT interval, QRS duration, QTc intervals are within normal range. No old EKG available for comparison. Discharge - Discharge Clinical Impression: Chest pain Qualifiers: Chest pain type: unspecified Qualified Code(s): R07.9 - Chest pain, unspecified Condition: Stable Disposition: ADMITTED OBSERVATION Admitting Provider: Hospitalist Unit Admitted: Telemetry
[2017-03-31 01:42] LABS: ABSOLUTE BASOPHILS # (AUTO) 0.1 10^3/uL (0.0-0.2); ABSOLUTE EOSINOPHILS # (AUTO) 0.1 10^3/uL (0.0-0.6); ABSOLUTE LYMPHOCYTES (AUTO) 2.2 10^3/uL (0.5-4.7); ABSOLUTE MONOCYTES (AUTO) 0.9 10^3/uL (0.1-1.4); ABSOLUTE NEUT (AUTO) 6.7 10^3/uL (1.7-8.2); ALANINE AMINOTRANSFERASE 20 U/L (21-72); ALBUMIN 3.1 g/dL (3.5-5.0); ALKALINE PHOSPHATASE 82 U/L (38-126); ANION GAP 11 (5-19); ASPARTATE AMINO TRANSFERASE 14 U/L (17-59); BASOPHILS % (AUTO) 1.2 % (0-2); BILIRUBIN,DIRECT 0.3 mg/dL (0.0-0.4); BILIRUBIN,TOTAL 0.4 mg/dL (0.2-1.3); BLOOD UREA NITROGEN 21 mg/dL (7-20); CALCIUM 8.7 mg/dL (8.4-10.2); CARBON DIOXIDE 23 mmol/L (22-30); CHLORIDE 109 mmol/L (98-107); CREATININE RESULT 0.78 mg/dL (0.52-1.25); EOSINOPHILS % (AUTO) 0.7 % (0-6); GLUCOSE 140 mg/dL (75-110); HEMATOCRIT 39.8 % (37.9-51.0); HEMOGLOBIN 13.3 g/dL (13.5-17.0); HGB HCT DIFFERENCE 0.1; LYMPHOCYTES % (AUTO) 21.7 % (13-45); MEAN CORPUSCULAR HEMOGLOBIN 31.5 pg (27.0-33.4); MEAN CORPUSCULAR HGB CONC 33.5 g/dL (32.0-36.0); MEAN CORPUSCULAR VOLUME 94 fl (80-97); MONOCYTES % (AUTO) 9.4 % (3-13); POTASSIUM 3.3 mmol/L (3.6-5.0); RED BLOOD COUNT 4.22 10^6/uL (4.35-5.55); RED CELL DISTRIBUTION WIDTH 14.4 % (11.5-14.0); SODIUM 143.2 mmol/L (137-145); TOTAL PROTEIN 5.2 g/dL (6.3-8.2)
[2017-03-31 01:43] LABS: CREATINE KINASE < 20 U/L (55-170)
--- NOTE | 2017-03-31 01:51 | RADIOLOGY REPORT (SQ) ---
EXAM DESCRIPTION: CHEST SINGLE VIEW COMPLETED DATE/TIME: 03/31/2017 1:34 am REASON FOR STUDY: cp COMPARISON: 09/16/2016. EXAM PARAMETERS: NUMBER OF VIEWS: One view. TECHNIQUE: Single frontal radiographic view of the chest acquired. RADIATION DOSE: NA LIMITATIONS: None. FINDINGS: LUNGS AND PLEURA: No opacities, masses or pneumothorax. Small chronic blunting-effusion o f the left costophrenic angle. Mild interstitial markings. MEDIASTINUM AND HILAR STRUCTURES: No masses. Contour normal. HEART AND VASCULAR STRUCTURES: Borderline cardiac silhouette size. Normal vasculature. BONES: No acute findings. HARDWARE: None in the chest. OTHER: No other significant finding. IMPRESSION: No acute cardiopulmonary findings. TECHNICAL DOCUMENTATION: JOB ID: [id number]
[2017-03-31 02:00] LABS: CREATINE KINASE MB 0.92 ng/mL (<4.55)
[2017-03-31 02:03] LABS: TROPONIN I < 0.012 ng/mL
[2017-03-31] MEDS ORDERED: NITROGLYCERIN 2% OINTMENT 1 GM PACKET TP ONE (02:03)
[2017-03-31] MEDS ORDERED: POTASSIUM CHLORIDE 10 MEQ TABLET.SA PO ONE (03:17)
--- NOTE | 2017-03-31 03:35 | RADIOLOGY REPORT (SQ) ---
EXAM DESCRIPTION: CTA CHEST COMPLETED DATE/TIME: 03/31/2017 3:15 am REASON FOR STUDY: chest pain COMPARISON: 12.8.16 TECHNIQUE: CT scan of the chest performed using helical scanning technique with dynamic intravenous contrast injection. Images reviewed with lung, soft tissue and bone windows. Reconstructed coronal and sagittal MPR images reviewed. Additional 3 dimensional post-processing performed to develop Maximal Intensity Projection images (UT P). All images stored on PACS. All CT scanners at this facility use dose modulation, iterative reconstruction, and/or weight based d osing when appropriate to reduce radiation dose to as low as reasonably achievable (ALARA). [facility]: Dose Right [facility]: CareDose [facility]: Dose Right [facility]: Teradose 4D [facility]: Compendium CONTRAST TYPE AND DOSE: contrast/concentration: Isovue 370.00 mg/ml; Total Contrast Delivered: 100.0 ml; Total Saline Delivered: 65.0 ml RENAL FUNCTION: Creatinine 0.8 RADIATION DOSE: Up-to-date CT equipment and radiation dose reduction techniques were employed. CTDIv ol: 26.9 mGy. DLP: 906 mGy-cm. . LIMITATIONS: None. FINDINGS: LUNGS AND PLEURA: No masses, infiltrates, pneumothorax. No pleural effusions, calcificati ons. Small scattered scar -atelectasis. Mild chronic interstitial lung markings. AORTA AND GREAT VESSELS: No aneurysm or dissection. 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 HEART: No pericardial effusion. Severe coronary arterial calcification. PULMONARY ARTERIES: No emboli visualized in the main pulmonary arteries or the segmental branches. D iffuse enlargement with right main pulmonary artery measuring 3.0 cm in diameter consistent with pulm onary arterial hypertension. HILAR AND MEDIASTINAL STRUCTURES: No identified masses or abnormal nodes. HARDWARE: None in the chest. UPPER ABDOMEN: Likely benign low attenuation left hepatic lesions measure up to 1.8 cm probably due t o the hepatic cysts. 1.9 cm likely benign exophytic cyst of the upper pole of the right kidney parti ally imaged. Limited exam. THYROID AND OTHER SOFT TISSUES: No masses. No adenopathy. BONES: No acute or significant finding. 3D MIPS: Confirm above findings. OTHER: No other significant finding. IMPRESSION: No acute cardiopulmonary findings. NO PULMONARY EMBOLI. Pulmonary arterial hypertensio n pattern. TECHNICAL DOCUMENTATION: JOB ID: [id number] Quality ID # [id number]: Final reports with documentation of one or more dose reduction techniques (e.g., Au tomated exposure control, adjustment of the mA and/or kV according to patient size, use of iterative reconstruction technique) 2010 [employer]- All Rights Reserved
[2017-03-31] MEDS ORDERED: ACETAMINOPHEN 325 MG TABLET PO ONE (03:46)
[2017-03-31] MEDS ORDERED: MAG HYDROX/AL HYDROX/SIMETH SUSP 30 ML UDCUP PO PRN (04:15)
[2017-03-31] MEDS ORDERED: INSULIN LISPRO 100 UNIT/ML 3 ML VIAL SUBCUT PRN (04:15)
[2017-03-31] MEDS ORDERED: GLUCAGON,HUMAN RECOMB 1 MG INJ IM PRN (04:15)
[2017-03-31] MEDS ORDERED: DEXTROSE 40% GEL 15 GM TUBE PO PRN ×2 (04:15)
[2017-03-31] MEDS ORDERED: DEXTROSE 50%-WATER 25 GM/50 ML DISP.SYRIN IV PRN ×2 (04:15)
[2017-03-31] MEDS ORDERED: ATORVASTATIN CALCIUM 80 MG TABLET PO ONE (05:00)
--- NOTE | 2017-03-31 05:45 | PDOC H&P ---
History of Present Illness Admission Date/PCP: 03/31/17 04:15 Patient complains of: Chest pain History of Present Illness: BRITTANY SALCEDO is a 77 year old male with a past medical history of AAA repair , COPD, GERD, hypertension, diabetes, dyslipidemia, chronic left-sided pleural effusion, diarrhea, remote pulmonary emboli. He had been in his usual state of health until approximately 6 hours prior to presentation developing retrosternal chest pain which was dull in nature and nonradiating without uncontrolled GERD, associated shortness of breath, palpitations, nausea or vomiting. Alleviating factors are clear exacerbating factors somewhat include palpation of the chest wall. Patient denies any recent change in medicines and is otherwise felt well. In the emergency room he has unremarkable workup including a negative CTA and is referred to the hospitalist for evaluation. Past Medical History Cardiac Medical History: Reports: Atrial Fibrillation, Hyperlipidema, Hypertension, Peripheral Vascular Disease, Pulmonary Embolism - History of Denies: Congestive Heart Failure, Myocardial Infarction Pulmonary Medical History: Reports: Chronic Obstructive Pulmonary Disease (COPD) , Pneumonia Neurological Medical History: Denies: Seizures Endocrine Medical History: Reports: Diabetes Mellitus Type 2 Denies: Diabetes Mellitus Type 1, Hyperthyroidism, Hypothyroidism GI Medical History: Reports: Gastroesophageal Reflux Disease Denies: Cirrhosis, Hepatitis Musculoskeltal Medical History: Reports: Arthritis Skin Medical History: Denies: Eczema, Psoriasis Psychiatric Medical History: Reports: Dementia - BINSWANGER'S Denies: Depression Past Surgical History Past Surgical History: Reports: Cholecystectomy, Herniorrhaphy, Vascular Surgery - AAA REPAIR Social History Information Source: Patient Lives with: Alone Smoking Status: Unknown if Ever Smoked Frequency of Alcohol Use: None Hx Recreational Drug Use: No Drugs: None Hx Prescription Drug Abuse: No - Advance Directive Resuscitation Status: Full Code Family History Family History: CAD, DM Parental Family History Reviewed: Yes Children Family History Reviewed: Yes Sibling(s) Family History Reviewed.: Yes Medication/Allergy Home Medications: Carbidopa/Levodopa [Sinemet 25-100 mg Tablet] 1.5 tab PO Q8 09/15/16 Famotidine [Pepcid 20 mg Tablet] 20 mg PO BID 09/15/16 Fluticasone Propionate [Flonase Nasal [place] 50 Mcg/[place] 16 gm] 1 spray NASL DAILY 09/15/16 Furosemide [Lasix] 40 mg PO DAILY 09/15/16 Lisinopril [Prinivil 2.5 mg Tablet] 2.5 mg PO DAILY 09/15/16 Metformin HCl [Metformin HCl ER] 500 mg PO DAILY 09/15/16 Omeprazole 40 mg PO DAILY 09/15/16 Potassium Chloride [K-Tab ER] 20 meq PO BID 09/15/16 Sertraline HCl [Zoloft 50 mg Tablet] 50 mg PO DAILY 09/15/16 Solifenacin Succinate [Vesicare] 5 mg PO DAILY 09/15/16 Tiotropium [place] [Spiriva Handihaler 5 Cap/Kit (18 Mcg/Cap)] 1 puff IH DAILY 09/15/16 Acetaminophen [Tylenol 325 mg Tablet] 650 mg PO Q4HP PRN tablet 09/19/16 Azithromycin [Zithromax 250 mg Tablet] 250 mg PO DAILY #5 tablet 09/19/16 Benzonatate [Tessalon Perles 100 mg Capsule] 100 mg PO Q8HP PRN #30 capsule Cefuroxime Axetil [Ceftin 500 mg Tablet] 500 mg PO BID #12 tablet 09/19/16 Diltiazem HCl [Diltiazem 24Hr Cd] 240 mg PO DAILY #30 cap.er.24h 09/19/16 Montelukast Sodium [Singulair 10 mg Tablet] 10 mg PO QHS #30 tablet 09/19/16 Prednisone [Deltasone 20 mg Tablet] 20 mg PO DAILY #4 tablet 09/19/16 Allergies/Adverse Reactions: morphine Allergy (Verified 11/08/16 16:55) Review of Systems Constitutional: ABSENT: chills, fever(s), headache(s), weight gain, weight loss Eyes: ABSENT: visual disturbances Ears: ABSENT: hearing changes Cardiovascular: ABSENT: chest pain, dyspnea on exertion, edema, orthropnea, palpitations Respiratory: ABSENT: cough, hemoptysis Gastrointestinal: PRESENT: bloating, diarrhea. ABSENT: abdominal pain, constipation, hematemesis, hematochezia, nausea, vomiting Genitourinary: ABSENT: dysuria, hematuria Musculoskeletal: ABSENT: joint swelling Integumentary: ABSENT: rash, wounds Neurological: ABSENT: abnormal gait, abnormal speech, confusion, dizziness, focal weakness, syncope Psychiatric: ABSENT: anxiety, depression, homidical ideation, suicidal ideation Endocrine: ABSENT: cold intolerance, heat intolerance, polydipsia, polyuria Hematologic/Lymphatic: ABSENT: easy bleeding, easy bruising Physical Exam Vital Signs: Temp Pulse Resp BP Pulse Ox 97.8 F 67 29 H 138/72 H 98 03/31/17 01:26 03/31/17 01:26 03/31/17 04:09 03/31/17 04:09 03/31/17 04:09 General appearance: PRESENT: no acute distress, well-developed, well-nourished Head exam: PRESENT: atraumatic, normocephalic Eye exam: PRESENT: conjunctiva pink, EOMI, PERRLA. ABSENT: scleral icterus Ear exam: PRESENT: normal external ear exam Mouth exam: PRESENT: moist, tongue midline Neck exam: ABSENT: carotid bruit, JVD, lymphadenopathy, thyromegaly Respiratory exam: PRESENT: clear to auscultation alfonso. ABSENT: rales, rhonchi, wheezes Cardiovascular exam: PRESENT: RRR. ABSENT: diastolic murmur, rubs, systolic murmur Pulses: PRESENT: normal dorsalis pedis pul Vascular exam: PRESENT: normal capillary refill GI/Abdominal exam: PRESENT: normal bowel sounds, soft. ABSENT: distended, guarding, mass, organolmegaly, rebound, tenderness Rectal exam: PRESENT: deferred Extremities exam: PRESENT: full ROM. ABSENT: calf tenderness, clubbing, pedal edema Neurological exam: PRESENT: alert, awake, oriented to person, oriented to place , oriented to time, oriented to situation, CN II-XII grossly intact. ABSENT: motor sensory deficit Psychiatric exam: PRESENT: appropriate affect, normal mood. ABSENT: homicidal ideation, suicidal ideation Skin exam: PRESENT: dry, intact, warm. ABSENT: cyanosis, rash Results Impressions: Chest X-Ray 03/31/17 01:11 IMPRESSION: No acute cardiopulmonary findings. Chest/Abdomen CTA 03/31/17 02:37 IMPRESSION: No acute cardiopulmonary findings. NO PULMONARY EMBOLI. Pulmonary arterial hypertension pattern. Assessment & Plan - Diagnosis (1) Chest pain Qualifiers: Chest pain type: unspecified Qualified Code(s): R07.9 - Chest pain, unspecified Is this a current diagnosis for this admission?: Yes Plan: Atypical chest pain though the patient's pain is atypical there are multiple risk factors for coronary artery disease and subsequently will observe and evaluation of acute coronary syndrome versus coronary artery disease with anginal equivalents. Cardiac monitoring blood pressure Q6 hours ,TSH, lipid profile, serial cardiac enzymes and cardiac stress test (2) COPD exacerbation Is this a current diagnosis for this admission?: Yes Plan: Home regiment with as needed flutter valve, incentive spirometry and DuoNeb (3) Diabetes mellitus type 2 in nonobese Is this a current diagnosis for this admission?: Yes Plan: Home regiment with Humalog sliding scale. - Time Time Spent: 50 to 70 Minutes
[2017-03-31 05:51] LABS: ANION GAP 11 (5-19); BLOOD UREA NITROGEN 20 mg/dL (7-20); CALCIUM 9.9 mg/dL (8.4-10.2); CARBON DIOXIDE 25 mmol/L (22-30); CHLORIDE 104 mmol/L (98-107); CHOLESTEROL 136.38 mg/dL (0-200); CREATININE RESULT 0.74 mg/dL (0.52-1.25); Direct HDL 33 mg/dL (>40); GLUCOSE 126 mg/dL (75-110); SODIUM 139.6 mmol/L (137-145); TRIGLYCERIDES 101 mg/dL (<150)
[2017-03-31 06:01] LABS: CREATINE KINASE MB 0.94 ng/mL (<4.55)
[2017-03-31 06:02] LABS: DIRECT LDL 83 mg/dL (<100)
[2017-03-31 06:04] LABS: TROPONIN I < 0.012 ng/mL
[2017-03-31] MEDS: CARBIDOPA/LEVODOPA 25-100 MG TABLET PO SCH ×3 (07:17→21:41)
[2017-03-31] MEDS: MAGNESIUM SULFATE/D5W 1 GM/100 ML RTUPB IV SCH ×2 (08:49→10:12)
[2017-03-31] MEDS: FLUTICASONE NASAL SPRAY 50 MCG/SPRY 120 SPRAY/16 GM NASL SCH (10:12)
[2017-03-31] MEDS: FAMOTIDINE 20 MG TABLET PO SCH ×2 (10:13→17:52)
[2017-03-31] MEDS: DILTIAZEM HCL 240 MG CAPSULE.CR PO SCH (10:13)
[2017-03-31] MEDS: DOCUSATE SODIUM 100 MG CAPSULE PO SCH ×2 (10:17→17:07)
[2017-03-31] MEDS ORDERED: AMINOPHYLLINE INJ/PF 250 MG/10 ML SDV IV ONE (11:22)
[2017-03-31] MEDS ORDERED: REGADENOSON INJ 0.4 MG/5 ML DISP.SYRIN IV ONE (11:22)
[2017-03-31 11:24] LABS: CREATINE KINASE MB 0.85 ng/mL (<4.55)
[2017-03-31 11:27] LABS: TROPONIN I < 0.012 ng/mL
[2017-03-31] MEDS: NITROGLYCERIN 0.4 MG/TAB 25 TAB/BOTTLE SL PRN ×2 (11:48→12:32)
[2017-03-31] MEDS ORDERED: MAGNESIUM SULFATE/D5W 1 GM/100 ML RTUPB IV ONE (12:15)
--- NOTE | 2017-03-31 12:19 | EKG REPORT ---
SEVERITY:- OTHERWISE NORMAL ECG - SINUS RHYTHM ATRIAL PREMATURE COMPLEX : Confirmed by: Ashley Henson MD 31-Mar-2017 12:18:51
[2017-03-31] MEDS ORDERED: METOCLOPRAMIDE HCL ORAL SOLN 10 MG/10 ML UDCUP PO ONE (12:30)
[2017-03-31] MEDS ORDERED: LIDOCAINE 2% VISCOUS SOLN 20 ML UDCUP PO ONE (12:30)
[2017-03-31] MEDS ORDERED: MAG HYDROX/AL HYDROX/SIMETH SUSP 30 ML UDCUP PO ONE (12:30)
--- NOTE | 2017-03-31 15:50 | RADIOLOGY REPORT (SQ) ---
EXAM DESCRIPTION: CHEST PA/LAT COMPLETED DATE/TIME: 03/31/2017 2:13 pm REASON FOR STUDY: chest pain, febrile COMPARISON: 09/16/2016 EXAM PARAMETERS: NUMBER OF VIEWS: two views TECHNIQUE: Digital Frontal and Lateral radiographic views of the chest acquired. RADIATION DOSE: NA LIMITATIONS: none FINDINGS: LUNGS AND PLEURA: Mild chronic interstitial changes are suggested. There is a small left pleural effusion. There is no pulmonary infiltrate or mass. MEDIASTINUM AND HILAR STRUCTURES: No masses or contour abnormalities. HEART AND VASCULAR STRUCTURES: Heart normal size. No evidence for failure. BONES: No acute findings. HARDWARE: None in the chest. OTHER: No other significant finding. IMPRESSION: Chronic lung changes with a small left pleural effusion. No pneumonia is identified. TECHNICAL DOCUMENTATION: JOB ID: [id number] [employer]- All Rights Reserved
[2017-03-31] MEDS: METFORMIN HCL 500 MG TABLET PO SCH (16:32)
[2017-03-31 17:01] LABS: CREATINE KINASE MB 0.65 ng/mL (<4.55)
[2017-03-31 17:05] LABS: TROPONIN I < 0.012 ng/mL
[2017-03-31] MEDS ORDERED: (PENDING PHARMACY ID) (Metformin Hcl [Glucophage Xr 500 Mg Tablet] 500 MG) PO SCH (18:00)
[2017-03-31] MEDS: TAMSULOSIN HCL 0.4 MG CAP.SR.24H PO SCH (21:41)
[2017-03-31] MEDS ORDERED: MONTELUKAST SODIUM 10 MG TABLET PO SCH ×2 (22:00)
[2017-03-31] MEDS ORDERED: ATORVASTATIN CALCIUM 80 MG TABLET PO SCH (22:00)
[2017-04-01 05:12] LABS: ABSOLUTE BASOPHILS # (AUTO) 0.1 10^3/uL (0.0-0.2); ABSOLUTE EOSINOPHILS # (AUTO) 0.1 10^3/uL (0.0-0.6); ABSOLUTE LYMPHOCYTES (AUTO) 1.7 10^3/uL (0.5-4.7); ABSOLUTE MONOCYTES (AUTO) 1.1 10^3/uL (0.1-1.4); ABSOLUTE NEUT (AUTO) 5.7 10^3/uL (1.7-8.2); EOSINOPHILS % (AUTO) 0.7 % (0-6); HEMATOCRIT 38.8 % (37.9-51.0); HEMOGLOBIN 13.1 g/dL (13.5-17.0); HGB HCT DIFFERENCE 0.5; LYMPHOCYTES % (AUTO) 19.7 % (13-45); MEAN CORPUSCULAR HEMOGLOBIN 31.4 pg (27.0-33.4); MEAN CORPUSCULAR HGB CONC 33.8 g/dL (32.0-36.0); MEAN CORPUSCULAR VOLUME 93 fl (80-97); RED BLOOD COUNT 4.17 10^6/uL (4.35-5.55); RED CELL DISTRIBUTION WIDTH 14.4 % (11.5-14.0); SEGMENTED NEUTROPHILS % (AUTO) 65.6 % (42-78); WHITE BLOOD COUNT 8.6 10^3/uL (4.0-10.5)
[2017-04-01 05:22] LABS: ANION GAP 9 (5-19); BLOOD UREA NITROGEN 15 mg/dL (7-20); CALCIUM 9.1 mg/dL (8.4-10.2); CARBON DIOXIDE 23 mmol/L (22-30); CHLORIDE 108 mmol/L (98-107); CREATININE RESULT 0.74 mg/dL (0.52-1.25); Direct HDL 32 mg/dL (>40); GLUCOSE 126 mg/dL (75-110); POTASSIUM 4.1 mmol/L (3.6-5.0); TRIGLYCERIDES 67 mg/dL (<150)
[2017-04-01] MEDS: CARBIDOPA/LEVODOPA 25-100 MG TABLET PO SCH (05:25)
[2017-04-01 05:32] LABS: DIRECT LDL 58 mg/dL (<100)
[2017-04-01 05:41] LABS: CREATINE KINASE < 20 U/L (55-170)
[2017-04-01 05:51] LABS: MAGNESIUM 1.6 mg/dL (1.6-2.3)
[2017-04-01] MEDS: METFORMIN HCL 500 MG TABLET PO SCH (08:38)
[2017-04-01] MEDS ORDERED: CLONAZEPAM 1 MG TABLET PO SCH (10:00)
[2017-04-01] MEDS ORDERED: MIRTAZAPINE 15 MG TABLET PO SCH (10:00)
[2017-04-01] MEDS ORDERED: ASPIRIN 81 MG TABLET, CHEWABLE PO SCH (10:00)
[2017-04-01] MEDS ORDERED: LANSOPRAZOLE 30 MG TAB.RAP.DR PO SCH (10:00)
[2017-04-01] MEDS ORDERED: (PENDING PHARMACY ID) (Clonazepam [Klonopin] 0.5 MG) PO SCH (10:00)
[2017-04-01] MEDS ORDERED: LISINOPRIL 5 MG TABLET PO SCH (10:00)
[2017-04-01] MEDS ORDERED: (PENDING PHARMACY ID) (Lisinopril [Prinivil 2.5 Mg Tablet] 2.5 MG) PO SCH (10:00)
[2017-04-01] MEDS ORDERED: FUROSEMIDE 40 MG TABLET PO SCH (10:00)
[2017-04-01] MEDS: FAMOTIDINE 20 MG TABLET PO SCH (11:14)
[2017-04-01] MEDS: DILTIAZEM HCL 240 MG CAPSULE.CR PO SCH (11:14)
[2017-04-01] MEDS: DOCUSATE SODIUM 100 MG CAPSULE PO SCH (11:15)
[2017-04-01] MEDS: TAMSULOSIN HCL 0.4 MG CAP.SR.24H PO SCH (11:15)
[2017-04-01] MEDS: MAGNESIUM SULFATE/D5W 1 GM/100 ML RTUPB IV SCH ×2 (11:18→12:44)
[2017-04-01] MEDS: FLUTICASONE NASAL SPRAY 50 MCG/SPRY 120 SPRAY/16 GM NASL SCH (11:19)
--- NOTE | 2017-04-01 12:21 | DRAGON STRESS TEST REPORT ---
INTRAVENOUS LEXISCAN CARDIOLITE STRESS TEST USING SINGLE PHOTON EMMISION COMPUTERIZED TOMOGRAPHIC. DATE OF PROCEDURE: April 01, 2017 INDICATION : Chest pain CARDIAC RISK FACTORS: Diabetes, dyslipidemia RESTING EKG: Sinus rhythm, incomplete right bundle branch block pattern. No baseline ST segment changes noted STRESS EKG: No significant changes noted with LexiScan bolus REASON FOR TERMINATION: Protocol. PROCEDURE REPORT: Baseline heart rate 81 beats per minute with blood pressure of 104/58. Patient had no significant complaints. Heart rate at 2 minutes post bolus 89 with a blood pressure of 86/50. 3 minutes post bolus heart rate 81 with blood pressure of 97/52. No significant EKG changes were noted. Patient had no significant complaints during the procedure or postprocedure. Patient injected with Aminophyllin 75 mg at 3 minutes or later after Lexiscan bolus. CONCLUSIONS: Normal EKG and hemodynamic response to IV LexiScan. NUCLEAR DATA: At rest the patient was given 14.47 millicuries of technetium 99 sestamibi injected intravenously. As per protocol rest gated SPECT images were obtained. Subsequently the patient was given intravenous LexiScan at a dose of 0.4 mg in 5 mL intravenously, followed by flush with normal saline. Subsequently the stress dose of 44.4 millicuries of technetium 99 sestamibi was injected intravenously. As per protocol stress gated images were obtained. NUCLEAR INTERPRETATION: Both raw and processed data were used for interpretation. Visual, qualitative, computer-generated quantitative data was used. There was good myocardial uptake of technetium compound. Motion artifact and soft tissue attenuations were noted. Increased visceral uptake was noted. No definitive areas of transient perfusion defect noted. No definitive areas of fixed perfusion defect or scars noted except for small area of mild fixed defect in the basal inferior wall. EKG gated imaging showed LV EF at 44 %, rest and stress gated EF similar visually. T. I D. ratio was 1.15. Lung heart ratio noted to be within normal limits 0.34. No significant extracardiac and abnormal radiotracer activities were noted. RV free wall uptake was noted to be borderline increased. IMPRESSION: Also refer to comments under nuclear interpretation. Also test results needs to be interpreted in the context of pretest probability. 1. There is no definitive scintigraphic evidence of LexiScan induced myocardial ischemia. 2. There is no definitive scintigraphic evidence of myocardial infarction/scar , except for a small area of mild fixed defect in the basal inferior wall. 3. EKG gated imaging shows left ventricular ejection fraction of approximately 44 %. 4. Clinical correlation requested as occasionally single vessel disease or balanced ischemia could be missed. In approximately 10% of the cases Lexiscan may not cause adequate vasodilatory stress. RECOMMENDATIONS: Aggressive risk factor modification, medical therapy. Clinical correlation with echocardiogram derived ejection fraction. Inability to exercise by itself can lead to increased cardiovascular event risks. Consider cardiology consultation and or follow-up if clinically indicated. I AM AVAILABLE FOR CARDIOLOGY CONSULTATION AND FOLLOWUP IF REQUESTED BY PMD Carolina Saab M.D., [facility] gaming associate, Board certified in cardiovascular diseases, Nuclear cardiology, Echocardiography Cardiac CT and cardiac MRI Ph. [phone] [place]
[2017-04-01 14:16] VITALS: BP 117/75
--- NOTE | 2017-04-02 08:01 | PDOC DISCHARGE SUMMARY ---
General - Admit/Disc Date/PCP Admission Date/Primary Care Provider: 03/31/17 04:15 Discharge Date: 04/01/17 - Discharge Diagnosis (1) Chest pain Is this a current diagnosis for this admission?: Yes (2) Diabetes mellitus type 2 in nonobese Is this a current diagnosis for this admission?: Yes (3) History of Magi's granulomatosis Is this a current diagnosis for this admission?: Yes (4) History of pulmonary embolus (PE) Is this a current diagnosis for this admission?: Yes (5) Parkinsons disease Is this a current diagnosis for this admission?: Yes (6) Tobacco dependency Is this a current diagnosis for this admission?: Yes (7) Hypomagnesemia Is this a current diagnosis for this admission?: Yes (8) Celiac disease Is this a current diagnosis for this admission?: Yes - Additional Information Resuscitation Status: Full Code Discharge Diet: Regular, Cardiac Discharge Activity: Activity As Tolerated, No Driving Home Medications: Aspirin [Aspirin 81 mg Chewable Tablet] 81 mg PO DAILY 03/31/17 Clonazepam [Klonopin] 0.5 mg PO DAILY 03/31/17 Furosemide [Lasix 40 mg Tablet] 40 mg PO DAILY 03/31/17 Lisinopril [Prinivil 2.5 mg Tablet] 2.5 mg PO DAILY 03/31/17 Metformin HCl [Glucophage XR 500 mg Tablet] 500 mg PO QPM 03/31/17 Mirtazapine [Remeron] 30 mg PO DAILY 03/31/17 Montelukast Sodium [Singulair 10 mg Tablet] 10 mg PO QHS 03/31/17 Omeprazole 40 mg PO DAILY 03/31/17 Tamsulosin HCl [Flomax 0.4 mg Cap.sr] 0.4 mg PO Q12 03/31/17 Carbidopa/Levodopa [Sinemet 25-100 mg Tablet] 1.5 each PO TID #180 tablet Carbidopa/Levodopa [Sinemet 25-100 mg Tablet] 1.5 tab PO Q8 tablet 04/01/17 Diltiazem HCl [Diltiazem 24Hr Cd] 120 mg PO BID #60 cap.er.24h 04/01/17 Fluticasone Propionate [Flonase Nasal [place] 50 Mcg/[place] 16 gm] 1 spray NASL DAILY spray.pump 04/01/17 Magnesium Oxide [Magnesium] 400 mg PO TID #90 tablet 04/01/17 History of Present Illness History of Present Illness: BRITTANY SALCEDO is a 77 year old male 77 year old male with a past medical history of AAA repair, COPD, GERD, hypertension, diabetes, dyslipidemia, chronic left-sided pleural effusion, diarrhea, remote pulmonary emboli. He had been in his usual state of health until approximately 6 hours prior to presentation developing retrosternal chest pain which was dull in nature and nonradiating without uncontrolled GERD, associated shortness of breath, palpitations, nausea or vomiting. Alleviating factors are clear exacerbating factors somewhat include palpation of the chest wall. Patient denies any recent change in medicines and is otherwise felt well. In the emergency room he has unremarkable workup including a negative CTA and is referred to the hospitalist for evaluation. Hospital Course Hospital Course: Patient was placed on observation and monitored on telemetry. His cardiac enzymes were negative 3. Patient underwent a nuclear stress test which revealed a fixed defect but was otherwise negative. Patient's hypomagnesemia was corrected prior to discharge. 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 He has not been compliant with this. Patient's also reports that he was recently stopped on his Sinemet and since that time has been quite lethargic and unable to function. Patient was given prescription for these medications and instructed to follow-up with her primary care physician. Home health physical therapy was established for this patient. Patient was advised to stop smoking. Physical Exam Vital Signs: Temp Pulse Resp BP Pulse Ox 98.2 F 66 18 117/75 99 04/01/17 13:39 04/01/17 13:39 04/01/17 13:39 04/01/17 13:39 04/01/17 13:39 Intake & Output 04/01/17 04/02/17 04/03/17 06:59 06:59 06:59 Intake Total 1890 Output Total 560 Balance 1330 Weight 97.9 kg Exam: General: Awake alert and oriented x3, no acute respiratory distress HEENT: AT/NC, PERRL, EOMI, oropharynx is moist, pink, no scleral icterus, no conjunctival injection Neck: No JVD, trachea midline Chest: Clear to auscultation bilaterally, no wheezes rhonchi or rales CV: Regular rate and rhythm, normal S1 and S2, no rub, or gallop Abdomen: Soft, nontender to palpation, nondistended, active bowel sounds; no rebound, rigidity, or guarding Extremities: No cyanosis, clubbing or edema Neuro: Cogwheel rigidity, shuffling gait, Cranial nerves II through XII are grossly intact without focal deficits; awake alert and oriented x3 Psych: Normal mood and affect Results Laboratory Results: 04/01/17 04:30 04/01/17 04:30 03/31/17 03/31/17 03/31/17 05:13 10:36 16:25 Creatine Kinase CK-MB (CK-2) 0.94 0.85 0.65 Troponin I < 0.012 < 0.012 < 0.012 04/01/17 04:30 Creatine Kinase < 20 L CK-MB (CK-2) Troponin I Impressions: Chest X-Ray 03/31/17 01:11 IMPRESSION: No acute cardiopulmonary findings. Chest/Abdomen CTA 03/31/17 02:37 IMPRESSION: No acute cardiopulmonary findings. NO PULMONARY EMBOLI. Pulmonary arterial hypertension pattern. Qualifiers PATEINT BEING DISCHARGED WITH ANY OF THE FOLLOWING DIAGNOSIS?: No Plan Time Spent: Less than 30 Minutes
== END 2017-04-01 15:14 | disposition home health service (06) ==
LOC: ER 01:08 → EH 04:15 → UNDOADMOB 04:32 → 4N 05:56
PROVIDERS: ADMIT Internal Medicine; ATTEND Internal Medicine
DX: R07.9 Chest pain, unspecified (principal); E11.9 Type 2 diabetes mellitus without complications; M31.30 Wegener's granulomatosis without renal involvement; Z86.711 Personal history of pulmonary embolism; G20 Parkinson's disease; F17.200 Nicotine dependence, unspecified, uncomplicated; E83.42 Hypomagnesemia; K90.0 Celiac disease; J44.1 Chronic obstructive pulmonary disease with (acute) exacerbation; K21.9 Gastro-esophageal reflux disease without esophagitis; I10 Essential (primary) hypertension; J90 Pleural effusion, not elsewhere classified; I73.9 Peripheral vascular disease, unspecified; I67.3 Progressive vascular leukoencephalopathy; F03.90 Unspecified dementia, unspecified severity, without behavioral disturbance, psychotic disturbance, mood disturbance, and anxiety; Z79.899 Other long term (current) drug therapy; Z79.82 Long term (current) use of aspirin; Z79.84 Long term (current) use of oral hypoglycemic drugs; Z91.14 Patient's other noncompliance with medication regimen; Z90.49 Acquired absence of other specified parts of digestive tract; Z82.49 Family history of ischemic heart disease and other diseases of the circulatory system; Z98.890 Other specified postprocedural states
CPT/HCPCS: 93005; 99285; 36415 ×2; 82553; 82962 ×2; 82550 ×2; 83735 ×2; 85025 ×2; 80048 ×2; 80053; 84484; 80061 ×2; 93017; 71020; 71010; 78452; 71275; 93010; 97110; 97163; G0378 ×3; A9500; J2785; A9270 ×24; J3490 ×3; J3475 ×2; J0280; Q9969; G8978; G8979

== ENCOUNTER 2017-04-26 11:55 | Inpatient (IN) | payer MEDICARE ==
[2017-04-26] MEDS ORDERED: NORMAL SALINE 1000 ML 1,000 ML IV PRN ×2 (12:25→14:54)
--- NOTE | 2017-04-26 12:29 | ER Document Report ---
ED General - General Chief Complaint: Nausea/Vomiting/Diarrhea Stated Complaint: RECTAL BLEEDING Time Seen by Provider: 04/26/17 12:09 Mode of Arrival: Medic Information source: Patient Notes: This is a 77-year-old man with a history of COPD, hypertension, Parkinson's and celiac disease. The patient states that he was feeling nauseated today yesterday. He states that he woke up this morning at 6 AM with multiple episodes of coffee ground emesis and has had black stools. Patient does state that his stools are normally dark and that he is takes iron. EMS was called to the home and the patient was brought in by EMS. EMS reports that the patient was treated with a liter of IV fluids as well as Zofran. TRAVEL OUTSIDE OF THE [place] IN LAST 30 DAYS: No - HPI Onset: Yesterday Onset/Duration: Gradual Quality of pain: No pain Severity: None Pain Level: Denies Associated symptoms: Nausea, Vomiting. denies: Chest pain, Fever, Shortness of breath Exacerbated by: Denies Relieved by: Denies Similar symptoms previously: No Recently seen / treated by doctor: No - Related Data Allergies/Adverse Reactions: morphine Allergy (Verified 04/26/17 13:03) Home Medications: Current Home Medications Aspirin [Aspirin 81 mg Chewable Tablet] 81 mg PO QPM 04/26/17 [History] Carbidopa/Levodopa [Sinemet 25-100 mg Tablet] 1.5 tab PO Q8 04/26/17 [History] Clonazepam [Klonopin] 0.5 mg PO QHS 04/26/17 [History] Furosemide [Lasix 40 mg Tablet] 40 mg PO DAILY 04/26/17 [History] Lisinopril [Prinivil 2.5 mg Tablet] 2.5 mg PO DAILY 04/26/17 [History] Magnesium Oxide [Mag-Ox 400 mg Tablet] 400 mg PO TID 04/26/17 [History] Memantine HCl [Namenda] 5 mg PO QHS 04/26/17 [History] Metformin HCl [Glucophage XR 500 mg Tablet] 500 mg PO QPM 04/26/17 [History] Mirtazapine [Remeron] 30 mg PO DAILY 04/26/17 [History] Montelukast Sodium [Singulair 10 mg Tablet] 10 mg PO QHS 04/26/17 [History] Omeprazole 40 mg PO DAILY 04/26/17 [History] Tamsulosin HCl [Flomax 0.4 mg Cap.sr] 0.4 mg PO DAILY 04/26/17 [History] Past Medical History - General Information source: Patient - Social History Smoking Status: Never Smoker Cigarette use (# per day): No Chew tobacco use (# tins/day): No Frequency of alcohol use: None Drug Abuse: None Lives with: Family Family History: CAD, DM Patient has suicidal ideation: No Patient has homicidal ideation: No - Past Medical History Cardiac Medical History: Reports: Hx Atrial Fibrillation, Hx Hypercholesterolemia, Hx Hypertension, Hx Peripheral Vascular Disease, Hx Pulmonary Embolism - History of Denies: Hx Congestive Heart Failure, Hx Heart Attack Pulmonary Medical History: Reports: Hx COPD, Hx Pneumonia Neurological Medical History: Denies: Hx Seizures Endocrine Medical History: Reports: Hx Diabetes Mellitus Type 2. Denies: Hx Diabetes Mellitus Type 1, Hx Hyperthyroidism, Hx Hypothyroidism Renal/ Medical History: Reports: Hx Kidney Stones - Incidental finding on CT scan 3 months ago.. Denies: Hx Peritoneal Dialysis GI Medical History: Reports: Hx Gastroesophageal Reflux Disease. Denies: Hx Cirrhosis, Hx Hepatitis Musculoskeltal Medical History: Reports Hx Arthritis Skin Medical History: Denies Hx Eczema, Denies Hx Psoriasis Psychiatric Medical History: Reports: Hx Dementia - BINSWANGER'S Denies: Hx Depression Infectious Medical History: Denies: Hx Hepatitis Past Surgical History: Reports: Hx Abdominal Surgery - abdominal hernia, hemorrhoidectomy, AAA, Hx Cardiac Surgery, Hx Cholecystectomy, Hx Herniorrhaphy , Hx Vascular Surgery - AAA REPAIR - Immunizations Hx Diphtheria, Pertussis, Tetanus Vaccination: Yes - 2012 Hx Pneumococcal Vaccination: 05/03/16 Review of Systems - Review of Systems Constitutional: denies: Chills, Fever EENT: No symptoms reported Cardiovascular: No symptoms reported Respiratory: See HPI, Cough, Short of breath, Wheezing Gastrointestinal: See HPI Genitourinary: No symptoms reported Musculoskeletal: No symptoms reported Skin: No symptoms reported Hematologic/Lymphatic: No symptoms reported Neurological/Psychological: Weakness Physical Exam - Vital signs Vitals: Resp Pulse Ox 22 H 98 04/26/17 12:00 04/26/17 12:00 Notes: Physical exam: GENERAL: 77-year-old man, alert and oriented 3, heart rate 110, blood pressure 120/70, respiratory rate 20, O2 sat 93% on room air, temperature 98.5 rectally. HEAD: Atraumatic, normocephalic. EYES: Pupils equal round and reactive to light, extraocular movements intact, sclera anicteric, conjunctiva are normal. ENT: Nares patent, oropharynx clear without exudates. Dry mucous membranes. NECK: Normal range of motion, supple LUNGS: Breath sounds clear to auscultation bilaterally and equal. No wheezes rales or rhonchi. HEART: Tachycardia without murmurs, rubs or gallops. ABDOMEN: Soft, distended, normoactive bowel sounds. No tenderness to palpation. No guarding, no rebound. No masses appreciated. Old laparotomy scar. Rectal: Black stool, sent for study Perineum: Clear EXTREMITIES: Normal range of motion, no pitting or edema. No clubbing or cyanosis. NEUROLOGICAL: Cranial nerves II through XII grossly intact. Normal speech, moving all extremities. PSYCH: Normal mood, normal affect. SKIN: Warm, Dry, normal turgor, no rashes or lesions noted. Course - Re-evaluation Re-evalutation: 04/26/17 14:54 Note: The patient was initially afebrile rectally. While in the emergency room , he did start to have Rigors and was noted to have fever of 101. He does have a persistent cough in the emergency room with some wheezing (history of COPD). The chest x-ray shows no obvious pneumonia. The patient has been treated with nebulizers and will receive IV Ceftriaxone. the stool was negative for blood. CT Of the abdomen shows an ileus pattern with no obvious obstruction. I did have Dr. Landry of surgery evaluate the p atient who feels that the symptoms are less likely obstruction. I discussed the case with Dr. Olmedo is willing to accept the patient. We have added on a lactic acid. To reiterate, the patient only spiked a fever while in the ER. As far as fluids given, he was given 1 L of fluid by EMS. He will be given another bolus of fluids, but he is 77 years old and we will watch his fluid status closely. He will not get 30 cc/kg bolus, he is gotten 20 cc/kg bolus given his age and we will watch him closely. - Vital Signs Vital signs: Temp Pulse Resp BP Pulse Ox 102.5 F H 19 101/63 99 04/26/17 16:00 04/26/17 16:00 04/26/17 15:41 04/26/17 16:00 - Laboratory Result Diagrams: 04/26/17 12:04 04/26/17 12:04 Laboratory results interpreted by me: 04/26/17 04/26/17 04/26/17 12:04 12:04 12:04 WBC 11.0 H RDW 14.4 H Lymphocytes % 12.1 L Absolute Neutrophils 8.5 H BUN 24 H Glucose 149 H Lactic Acid 2.2 H Creatine Kinase < 20 L Total Protein 6.1 L - Diagnostic Test Radiology reviewed: Image reviewed, Reports reviewed - No obvious infiltrates - EKG Interpretation by Me Rhythm: A.Fib - EKG shows atrial fibrillation with a ventricular rate of 108, nonspecific T changes. Critical Care Note - Critical Care Note Total time excluding time spent on procedures (mins): 90 Discharge - Discharge Clinical Impression: COPD exacerbation, Vomiting with nausea, Ileus Condition: Serious Disposition: ADMITTED INPATIENT Unit Admitted: IMCU - Dr Olmedo
[2017-04-26] MEDS ORDERED: METOCLOPRAMIDE HCL INJ/PF 10 MG/2 ML SDV IV ONE (12:30)
[2017-04-26] MEDS ORDERED: DIPHENHYDRAMINE HCL 50 MG/ML VIAL IV ONE (12:30)
[2017-04-26 12:31] LABS: ABSOLUTE LYMPHOCYTES (AUTO) 1.3 10^3/uL (0.5-4.7); ABSOLUTE NEUT (AUTO) 8.5 10^3/uL (1.7-8.2); BASOPHILS % (AUTO) 0.3 % (0-2); EOSINOPHILS % (AUTO) 0.1 % (0-6); HEMATOCRIT 44.7 % (37.9-51.0); HGB HCT DIFFERENCE 0.3; LYMPHOCYTES % (AUTO) 12.1 % (13-45); MEAN CORPUSCULAR HEMOGLOBIN 31.3 pg (27.0-33.4); MEAN CORPUSCULAR HGB CONC 33.6 g/dL (32.0-36.0); MEAN CORPUSCULAR VOLUME 93 fl (80-97); MONOCYTES % (AUTO) 9.5 % (3-13); PROTHROMBIN TIME 13.3 SEC (11.4-15.4); RED BLOOD COUNT 4.81 10^6/uL (4.35-5.55); RED CELL DISTRIBUTION WIDTH 14.4 % (11.5-14.0)
[2017-04-26 12:42] LABS: ALANINE AMINOTRANSFERASE 22 U/L (21-72); ALBUMIN 3.8 g/dL (3.5-5.0); ALKALINE PHOSPHATASE 87 U/L (38-126); ANION GAP 12 (5-19); ASPARTATE AMINO TRANSFERASE 20 U/L (17-59); BILIRUBIN,DIRECT 0.4 mg/dL (0.0-0.4); BILIRUBIN,TOTAL 0.9 mg/dL (0.2-1.3); BLOOD UREA NITROGEN 24 mg/dL (7-20); CARBON DIOXIDE 28 mmol/L (22-30); CHLORIDE 100 mmol/L (98-107); CREATININE RESULT 0.95 mg/dL (0.52-1.25); GLUCOSE 149 mg/dL (75-110); POTASSIUM 4.1 mmol/L (3.6-5.0); SODIUM 139.8 mmol/L (137-145); TOTAL PROTEIN 6.1 g/dL (6.3-8.2)
[2017-04-26 12:43] LABS: CREATINE KINASE < 20 U/L (55-170)
[2017-04-26 12:56] LABS: TROPONIN I < 0.012 ng/mL
[2017-04-26] MEDS ORDERED: IPRATROPIUM/ALBUTEROL 0.5-2.5 MG/3 ML AMPUL NEB ONE (13:10)
--- NOTE | 2017-04-26 13:13 | RADIOLOGY REPORT (SQ) ---
EXAM DESCRIPTION: CHEST SINGLE VIEW COMPLETED DATE/TIME: 04/26/2017 12:51 pm REASON FOR STUDY: chest pain COMPARISON: 03/31/2017 EXAM PARAMETERS: NUMBER OF VIEWS: One view. TECHNIQUE: Single frontal radiographic view of the chest acquired. RADIATION DOSE: NA LIMITATIONS: None. FINDINGS: LUNGS AND PLEURA: No opacities, masses or pneumothorax. Again there is some blunting of t he left costophrenic angle which could represent pleural reaction or small left pleural effusion MEDIASTINUM AND HILAR STRUCTURES: No masses. Contour normal. HEART AND VASCULAR STRUCTURES: Heart normal in size. Normal vasculature. BONES: No acute findings. HARDWARE: None in the chest. OTHER: No other significant finding. IMPRESSION: Again there is blunting of the left costophrenic angle which could represent pleural nguyen ction or small left pleural effusion. Visualized lung ryder are otherwise clear. Other findings as noted above TECHNICAL DOCUMENTATION: JOB ID: [id number]
--- NOTE | 2017-04-26 14:09 | RADIOLOGY REPORT (SQ) ---
EXAM DESCRIPTION: CT ABD/PELVIS WITH IV ONLY COMPLETED DATE/TIME: 04/26/2017 1:39 pm REASON FOR STUDY: abd pain COMPARISON: None. TECHNIQUE: CT scan of the abdomen and pelvis performed using helical scanning technique with dynamic intravenous contrast injection. No oral contrast. Images reviewed with lung, soft tissue, and bone windows. Reconstructed coronal and sagittal MPR images reviewed. Delayed images for evaluation of the urinary system also acquired. All images stored on PACS. All CT scanners at this facility use dose modulation, iterative reconstruction, and/or weight based d osing when appropriate to reduce radiation dose to as low as reasonably achievable (ALARA). [facility]: Dose Right [facility]: CareDose [facility]: Dose Right [facility]: Teradose 4D [facility]: ActualSun CONTRAST TYPE AND DOSE: contrast/concentration: Isovue 370.00 mg/ml; Total Contrast Delivered: 99.0 ml; Total Saline Delivered: 70.0 ml RENAL FUNCTION: Creatinine 0.95 RADIATION DOSE: Up-to-date CT equipment and radiation dose reduction techniques were employed. CTDIv ol: 12.2 - 14.3 mGy. DLP: 1441 mGy-cm.. LIMITATIONS: None. FINDINGS: LOWER CHEST: There is ill-defined increased density in the left lung base which could repr esent atelectatic changes or developing infiltrate LIVER: Normal size. No masses. No dilated ducts. SPLEEN: Normal size. No focal lesions. PANCREAS: No masses. No significant calcifications. No adjacent inflammation or peripancreatic fluid collections. Pancreatic duct not dilated. GALLBLADDER: Gallbladder is not identified ADRENAL GLANDS: No significant masses or asymmetry. RIGHT KIDNEY AND URETER: No solid masses. No significant calcifications. No hydronephrosis or hyd roureter. LEFT KIDNEY AND URETER: No solid masses. No significant calcifications. No hydronephrosis or hydr oureter. AORTA AND VESSELS: No aneurysm. No dissection. Renal arteries, SMA, celiac without stenosis. RETROPERITONEUM: No retroperitoneal adenopathy, hemorrhage or masses. BOWEL AND PERITONEAL CAVITY: Multiple air and fluid distended large and small bowel loops are identif ied most consistent with an ileus pattern although the possibility of an underlying obstruction canno t be excluded. There are scattered radiopaque densities within the bowel loops presumably representi ng an ingested substance. APPENDIX: Not identified PELVIS: No mass. No free fluid. Normal bladder. ABDOMINAL WALL: No masses. Left inguinal hernia is identified containing fat. A small ventral herni a is identified in the anterior abdomen in the midline containing a portion of bowel without obstruct ion. BONES: No significant or acute findings. OTHER: Surgical clips are identified in right pelvis presumably related to a prior hernia repair. IMPRESSION: Multiple air and fluid distended large and small bowel loops are identified as noted abo ve most consistent with an ileus pattern although the possibility of an underlying obstruction cannot be excluded. Clinical correlation is recommended. Other findings as noted above TECHNICAL DOCUMENTATION: JOB ID: [id number] Quality ID # [id number]: Final reports with documentation of one or more dose reduction techniques (e.g., Au tomated exposure control, adjustment of the mA and/or kV according to patient size, use of iterative reconstruction technique) 2010 [employer]- All Rights Reserved
[2017-04-26] MEDS ORDERED: CEFTRIAXONE 2 GM/D5W RTU 2 GM/50 ML RTUPB IV ONE (14:54)
[2017-04-26 14:55] LABS: APPEARANCE,URINE CLEAR; BILIRUBIN,URINE NEGATIVE (NEGATIVE); GLUCOSE, URINE NEGATIVE (NEGATIVE); KETONES,URINE NEGATIVE (NEGATIVE); LEUKOCYTE ESTERASE,URINE NEGATIVE (NEGATIVE); NITRITE,URINE NEGATIVE (NEGATIVE); PROTEIN,URINE NEGATIVE (NEGATIVE); URINE SPECIFIC GRAVITY 1.034; UROBILINOGEN,URINE NEGATIVE mg/dL (<2.0)
[2017-04-26] MEDS ORDERED: ACETAMINOPHEN 650 MG SUPP.RECT PR ONE (15:13)
--- NOTE | 2017-04-26 15:38 | CONSULTATION REPORT E ---
Consultation Report NAME: BRITTANY SALCEDO : 1940 AGE: 77Y DATE: 04/26/2017 TO: GOOD VERGARA M.D. FROM: KOKI JOSEPH M.D. Requesting Physician REASON FOR CONSULTATION: Patient with vomiting and ileus on CAT scan. HISTORY OF PRESENT ILLNESS: This is a 77-year-old male with a history of Parkinson's, COPD, hypertension, and celiac disease noted by his . At 6:00 this morning, the patient had multiple episodes of vomiting. The patient was able to sleep afterwards, but again woke up again around 8:00 and again had some vomiting, and then brought to the emergency room. He had 1 L of IV fluids given by EMS as well as Zofran. In the emergency room, a CT scan of the abdomen was performed, which showed multiple air and fluid distended, large and small bowel loops consistent with ileus pattern. Although possibility of underlying obstruction could not be excluded. PAST MEDICAL HISTORY: 1. The patient had an abdominal aortic aneurysm done in 2009, open technique. 2. The patient also had a coronary artery bypass grafting. 3. History of gastroesophageal reflux. 4. Arthritis. 5. Also has history of atrial fibrillation. 6. Hypercholesterolemia. 7. Hypertension. 8. Peripheral vascular disease. 9. Pulmonary embolism. PAST SURGICAL HISTORY: 1. Abdominal hernia repair. 2. Hemorrhoidectomy. 3. History of cholecystectomy. 4. AAA repair, open, in 2009. SOCIAL HISTORY: The patient still smokes about 1-1/2 packs a day, although the claims he does not really inhale. Denies any alcohol use. ALLERGIES: MORPHINE. FAMILY HISTORY: Coronary artery disease and diabetes mellitus. REVIEW OF SYSTEMS: SKIN HISTORY: Denies eczema. 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 INFECTIOUS MEDICAL HISTORY: Denies hepatitis. PULMONARY HISTORY: Reports history of COPD and pneumonia. NEUROLOGIC HISTORY: Denies seizures. ENDOCRINE: Reports diabetes mellitus type 2. Denies diabetes type 1. MEDICAL AND GENITOURINARY HISTORY: Reports a history of kidney stones and incidental finding on CT scan 3 months ago. PHYSICAL EXAMINATION: VITAL SIGNS: Temperature 98 degrees Fahrenheit, respirations 21 per minute, BP 90/70, pulse ox 99%. HEENT: Neck is supple. LUNGS: Clear. HEART: Regular rate and rhythm. ABDOMEN: Distended, but soft and nontender. Has an umbilical hernia, but not obstructed. Has a midline scar. No inguinal hernias noted. EXTREMITIES: No edema. DIAGNOSTIC DATA: EKG showed atrial fibrillation with a ventricular rate of *------* per minute. IMPRESSION AND PLAN: 1. Parkinson's disease and COPD. 2. Ileus. Doubt obstruction, but at any rate, an NG tube will be placed to suction to intestinal fluid. He will need continued hydration. His white count is essentially upper limit of normal at 11,000. I think it is best to restart him on antibiotic since when I saw him just now in the ER, his temperature was up to 101. A urine sample was sent for urinalysis. All symptoms may be tied up to a possible UTI. At any rate, I will follow him with you. DICTATING PHYSICIAN: GOOD VERGARA M.D. [id number] PHY#: [id number] ID: [id number] JOB#: [id number] ACCT: [id number] cc:GOOD VERGARA M.D. >
--- NOTE | 2017-04-26 16:20 | EKG REPORT ---
SEVERITY:- ABNORMAL ECG - ATRIAL FIBRILLATION, V-RATE 84-121 LEFT ANTERIOR FASCICULAR BLOCK BORDERLINE T ABNORMALITIES, DIFFUSE : Confirmed by: Hung Chow MD 26-Apr-2017 16:19:33
[2017-04-26] MEDS ORDERED: GLUCAGON,HUMAN RECOMB 1 MG INJ SUBCUT PRN (16:33)
[2017-04-26] MEDS ORDERED: DEXTROSE 40% GEL 15 GM TUBE PO PRN ×2 (16:33)
[2017-04-26] MEDS ORDERED: ACETAMINOPHEN 325 MG TABLET PO PRN (16:33)
[2017-04-26] MEDS ORDERED: DEXTROSE 50%-WATER 25 GM/50 ML DISP.SYRIN IV PRN ×2 (16:33)
[2017-04-26] MEDS ORDERED: ALBUTEROL SULFATE 0.083% NEB 2.5 MG/3 ML AMPUL NEB PRN (16:33)
--- NOTE | 2017-04-26 16:33 | RADIOLOGY REPORT (SQ) ---
EXAM DESCRIPTION: KUB/ABDOMEN (SINGLE VIEW) COMPLETED DATE/TIME: 04/26/2017 4:14 pm REASON FOR STUDY: ng tube placement COMPARISON: None. NUMBER OF VIEWS: One view. TECHNIQUE: Supine radiographic image of the abdomen acquired. LIMITATIONS: None. FINDINGS: BOWEL GAS PATTERN: Normal bowel gas pattern. No dilated loops. CALCIFICATIONS: No suspicious calcifications. SOFT TISSUES: No gross mass or suggestion of organomegaly. HARDWARE: Nasogastric tube tip below the hemidiaphragm in the fundus of the stomach. BONES: No acute fracture. No worrisome bone lesions. OTHER: No other significant finding. IMPRESSION: Nasogastric tube tip in the fundus of the stomach. TECHNICAL DOCUMENTATION: JOB ID: [id number] [employer]- All Rights Reserved
[2017-04-26] MEDS ORDERED: ONDANSETRON HCL INJ/PF 4 MG/2 ML SDV IV PRN (16:41)
[2017-04-26] MEDS ORDERED: PHARMACY COMMUNICATION ORDER MC NR (16:45)
[2017-04-26] MEDS ORDERED: IMIPENEM/CILASTATIN SODIUM INJ 500 MG VIAL IV SCH (16:45)
--- NOTE | 2017-04-26 16:49 | PDOC H&P ---
History of Present Illness Admission Date/PCP: 04/26/17 15:25 Patient complains of: Nausea vomiting and diarrhea History of Present Illness: This is a 77-year-old man with a history of COPD, hypertension, Parkinson's and celiac disease. The patient states that he was feeling nauseated today yesterday. He states that he woke up this morning at 6 AM with multiple episodes of coffee ground emesis and has had black stools. Patient does state that his stools are normally dark and that he is takes iron. EMS was called to the home and the patient was brought in by EMS. EMS reports that the patient was treated with a liter of IV fluids as well as Zofran. TRAVEL OUTSIDE OF THE [place] IN LAST 30 DAYS: No On evaluation of the patient should he was lethargic and easily falls back to sleep, information therefore unobtainable from the patient at this time. Information obtained from emergency room records and from prior records. Emergency room physician obtain a CT of the abdomen and pelvis showing findings suggestive of ileus. There is a question of obstruction, and surgery was consulted and an evaluation of ileus was made. Patient reportedly was having wheezing and therefore was treated with nebulizers and ceftriaxone in the emergency room. IV fluid was likewise given. Nasogastric tube was placed. Stool for occult blood was negative. WBC was mildly elevated. Lactic acid was likewise mildly elevated but the patient is on metformin. No reported recent intake of antibiotic. The patient was then referred for admission. No other information available at this time. Information obtained from previous records. Past Medical History Cardiac Medical History: Reports: Atrial Fibrillation, Hyperlipidema, Hypertension, Peripheral Vascular Disease, Pulmonary Embolism - History of Denies: Congestive Heart Failure, Myocardial Infarction Pulmonary Medical History: Reports: Chronic Obstructive Pulmonary Disease (COPD) , Pneumonia Neurological Medical History: Denies: Seizures Endocrine Medical History: Reports: Diabetes Mellitus Type 2 Denies: Diabetes Mellitus Type 1, Hyperthyroidism, Hypothyroidism GI Medical History: Reports: Gastroesophageal Reflux Disease Denies: Cirrhosis, Hepatitis Musculoskeltal Medical History: Reports: Arthritis Skin Medical History: Denies: Eczema, Psoriasis Psychiatric Medical History: Reports: Dementia - BINSWANGER'S Denies: Depression Past Surgical History Past Surgical History: Reports: Cholecystectomy, Herniorrhaphy, Vascular Surgery - AAA REPAIR Social History Information Source: [facility] Records Lives with: Family Smoking Status: Never Smoker Frequency of Alcohol Use: None Hx Recreational Drug Use: No Drugs: None Hx Prescription Drug Abuse: No Family History Family History: CAD, DM Parental Family History Reviewed: Yes Children Family History Reviewed: Yes Sibling(s) Family History Reviewed.: Yes Medication/Allergy Home Medications: Aspirin [Aspirin 81 mg Chewable Tablet] 81 mg PO QPM 04/26/17 Carbidopa/Levodopa [Sinemet 25-100 mg Tablet] 1.5 tab PO Q8 04/26/17 Clonazepam [Klonopin] 0.5 mg PO QHS 04/26/17 Furosemide [Lasix 40 mg Tablet] 40 mg PO DAILY 04/26/17 Lisinopril [Prinivil 2.5 mg Tablet] 2.5 mg PO DAILY 04/26/17 Magnesium Oxide [Mag-Ox 400 mg Tablet] 400 mg PO TID 04/26/17 Memantine HCl [Namenda] 5 mg PO QHS 04/26/17 Metformin HCl [Glucophage XR 500 mg Tablet] 500 mg PO QPM 04/26/17 Mirtazapine [Remeron] 30 mg PO DAILY 04/26/17 Montelukast Sodium [Singulair 10 mg Tablet] 10 mg PO QHS 04/26/17 Omeprazole 40 mg PO DAILY 04/26/17 Tamsulosin HCl [Flomax 0.4 mg Cap.sr] 0.4 mg PO DAILY 04/26/17 Allergies/Adverse Reactions: morphine Allergy (Verified 04/26/17 13:03) Review of Systems ROS unobtainable: Due to mental status Physical Exam Vital Signs: Temp Pulse Resp BP Pulse Ox 102.4 F H 20 104/48 L 100 04/26/17 16:21 04/26/17 16:21 04/26/17 16:21 04/26/17 16:21 Intake & Output 04/25/17 04/26/17 04/27/17 06:59 06:59 06:59 Intake Total 50 Output Total 250 Balance -200 General appearance: PRESENT: no acute distress, morbidly obese, other - Nasogastric tube is in place as well as nasal cannula oxygen. Head exam: PRESENT: normocephalic Eye exam: PRESENT: conjunctiva pale. ABSENT: conjunctival injection, nystagmus , periorbital swelling Ear exam: PRESENT: normal external ear exam. ABSENT: drainage Mouth exam: PRESENT: dry mucosa, neck supple Throat exam: PRESENT: other - Unable to cooperate at this time. Neck exam: ABSENT: carotid bruit, JVD, lymphadenopathy, thyromegaly Respiratory exam: PRESENT: clear to auscultation alfonso - Anteriorly, unlabored. ABSENT: rales, rhonchi, wheezes Cardiovascular exam: PRESENT: irregular rhythm, +S1, +S2. ABSENT: diastolic murmur, rubs, systolic murmur Pulses: PRESENT: normal dorsalis pedis pul Vascular exam: PRESENT: normal capillary refill GI/Abdominal exam: PRESENT: distended, hypoactive bowel sounds, soft. ABSENT: guarding, mass, organolmegaly, rebound, tenderness Rectal exam: PRESENT: deferred Extremities exam: PRESENT: full ROM, other - Trace to +1 edema bilateral lower extremity. ABSENT: calf tenderness, clubbing Neurological exam: PRESENT: altered Psychiatric exam: ABSENT: agitated, anxious Focused psych exam: ABSENT: restlessness Skin exam: PRESENT: dry, intact, warm. ABSENT: cyanosis, rash Results Impressions: Chest X-Ray 04/26/17 12:21 IMPRESSION: Again there is blunting of the left costophrenic angle which could represent pleural reaction or small left pleural effusion. Visualized lung ryder are otherwise clear. Other findings as noted above Abdomen/Pelvis CT 04/26/17 12:45 IMPRESSION: Multiple air and fluid distended large and small bowel loops are identified as noted above most consistent with an ileus pattern although the possibility of an underlying obstruction cannot be excluded. Clinical correlation is recommended. Other findings as noted above KUB X-Ray 04/26/17 15:45 IMPRESSION: Nasogastric tube tip in the fundus of the stomach. Assessment & Plan - Diagnosis (1) Sepsis Qualifiers: Sepsis type: sepsis due to unspecified organism Qualified Code(s): A41.9 - Sepsis, unspecified organism Is this a current diagnosis for this admission?: Yes (2) Infectious colitis Is this a current diagnosis for this admission?: Yes (3) Atrial fibrillation with rapid ventricular response Is this a current diagnosis for this admission?: Yes (4) Ileus, unspecified Is this a current diagnosis for this admission?: Yes (5) COPD exacerbation Is this a current diagnosis for this admission?: Yes (6) Wegeners granulomatosis Is this a current diagnosis for this admission?: Yes (7) Peripheral vascular disease Is this a current diagnosis for this admission?: Yes (8) Dementia Qualifiers: Dementia type: Parkinson's disease Dementia behavioral disturbance: without behavioral disturbance Qualified Code(s): G20 - Parkinson's disease; F02.80 - Dementia in other diseases classified elsewhere without behavioral disturbance Is this a current diagnosis for this admission?: Yes (9) Essential hypertension Is this a current diagnosis for this admission?: Yes (10) GERD (gastroesophageal reflux disease) Qualifiers: Esophagitis presence: without esophagitis Qualified Code(s): K21.9 - Gastro -esophageal reflux disease without esophagitis Is this a current diagnosis for this admission?: Yes (11) Celiac disease Is this a current diagnosis for this admission?: Yes (12) Diabetes mellitus type 2 in nonobese Is this a current diagnosis for this admission?: Yes (13) History of pulmonary embolus (PE) Is this a current diagnosis for this admission?: Yes (14) Parkinsons disease Is this a current diagnosis for this admission?: Yes - Time Time Spent: 50 to 70 Minutes - Inpatient Certification Based on my medical assessment, after consideration of the patient's comorbidities, presenting symptoms, or acuity I expect that the services needed warrant INPATIENT care.: Yes I certify that my determination is in accordance with my understanding of Medicare's requirements for reasonable and necessary INPATIENT services [42 CFR 412.3e].: Yes Medical Necessity: Significant Comorbidiites Make Outpatient Treatment Too Risky , Need Close Monitoring Due to Risk of Patient Decompensation, Need For IV Fluids, Need For Continuous Telemetry Monitoring, Need for IV Antibiotics, Risk of Complication if Not Cared For in Hospital, Risk of Diagnosis Which Will Require Inpatient Eval/Care/Monitoring Post Hospital Care: D/C Histopathologist Documentation - Plan Summary Plan Summary: The patient will be admitted to [facility]. Blood and urine cultures will be sent. We will culture the stool as well and check Clostridium difficile toxin. We will begin broad-spectrum antibiotic with Primaxin and intravenous flagyl. I will hold the patient's home medications. We will monitor electrolytes closely. I think patient's tachycardia will respond to IV fluid hydration, we will therefore hold any rate controlling medication at this time given the potential of hypotension. We will monitor closely for overload. He is not on any chronic steroid therapy. We will check a random cortisol level. DVT prophylaxis with Lovenox will be placed. Supplemental oxygen will be given. We will likewise give bronchodilators scheduled and as needed. Further testing depends on initial evaluation and response to treatment as outlined above. Patient will be kept n.p.o. for now.
[2017-04-26] MEDS ORDERED: IMIPENEM/CILASTATIN SODIUM INJ 500 MG VIAL IV PRN (16:58)
[2017-04-26] MEDS: METRONIDAZOLE 500 MG/NS RTU 100 ML IV SCH (18:03)
--- NOTE | 2017-04-26 19:09 | RADIOLOGY REPORT (SQ) ---
EXAM DESCRIPTION: KUB/ABDOMEN (SINGLE VIEW) COMPLETED DATE/TIME: 04/26/2017 6:21 pm REASON FOR STUDY: Check Placement of NG Tube COMPARISON: None. NUMBER OF VIEWS: One view. TECHNIQUE: Supine radiographic image of the abdomen acquired. LIMITATIONS: None. FINDINGS: BOWEL GAS PATTERN: Prominent gas through the colon. CALCIFICATIONS: No suspicious calcifications. SOFT TISSUES: No gross mass or suggestion of organomegaly. HARDWARE: Nasogastric tube tip is in the fundus of the stomach. BONES: No acute fracture. No worrisome bone lesions. OTHER: No other significant finding. IMPRESSION: Nasogastric tube tip in the fundus of the stomach. TECHNICAL DOCUMENTATION: JOB ID: [id number] [email or web address]- All Rights Reserved
[2017-04-26] MEDS: IPRATROPIUM/ALBUTEROL 0.5-2.5 MG/3 ML AMPUL NEB SCH (20:26)
--- NOTE | 2017-04-26 20:41 | RADIOLOGY REPORT (SQ) ---
EXAM DESCRIPTION: KUB/ABDOMEN (SINGLE VIEW) COMPLETED DATE/TIME: 04/26/2017 8:32 pm REASON FOR STUDY: NG PLACEMENT COMPARISON: None. NUMBER OF VIEWS: One view. TECHNIQUE: Supine radiographic image of the abdomen acquired. LIMITATIONS: None. FINDINGS: BOWEL GAS PATTERN: Moderate gas in the colon. CALCIFICATIONS: No suspicious calcifications. SOFT TISSUES: No gross mass or suggestion of organomegaly. HARDWARE: NG tube is now just at the GE junction. BONES: No acute fracture. No worrisome bone lesions. OTHER: No other significant finding. IMPRESSION: NG tube tip now just at the GE junction. Retracted cephalad from previous. TECHNICAL DOCUMENTATION: JOB ID: [id number] [employer]- All Rights Reserved
[2017-04-26] MEDS ORDERED: IMIPENEM/CILASTATIN SODIUM INJ 500 MG VIAL IV ONE (21:17)
[2017-04-26] MEDS ORDERED: METRONIDAZOLE 500 MG/NS RTU 200 ML IV ONE (21:17)
[2017-04-26] MEDS: IMIPENEM/CILASTATIN SODIUM 500 MG in NORMAL SALINE 100 ML IV SCH (21:46)
[2017-04-26] MEDS: FAMOTIDINE INJ/PF 20 MG/2 ML SDV IV SCH (21:47)
[2017-04-26] MEDS: NORMAL SALINE 1000 ML 1,000 ML IV PRN (21:48)
[2017-04-27] MEDS: METRONIDAZOLE 500 MG/NS RTU 100 ML IV SCH ×4 (00:03→18:15)
[2017-04-27] MEDS: IPRATROPIUM/ALBUTEROL 0.5-2.5 MG/3 ML AMPUL NEB SCH ×4 (02:20→20:18)
--- NOTE | 2017-04-27 02:39 | RADIOLOGY REPORT (SQ) ---
EXAM DESCRIPTION: KUB/ABDOMEN (SINGLE VIEW) COMPLETED DATE/TIME: 04/27/2017 1:48 am REASON FOR STUDY: NG TUBE PLACEMENT VERIFICATION COMPARISON: 04/26/2017. NUMBER OF VIEWS: One view. TECHNIQUE: Supine radiographic image of the abdomen acquired. LIMITATIONS: None. FINDINGS: BOWEL GAS PATTERN: Moderate nonspecific gaseous dilation of bowel. CALCIFICATIONS: No suspicious calcifications. SOFT TISSUES: No gross mass or suggestion of organomegaly. HARDWARE: Enteric tube tip in proximal port overlies the expected stomach/ left upper abdominal quadr ant. Surgical clips of the left upper abdominal quadrant. BONES: [id number] disc desiccation per clips overlie the right hip. OTHER: No other significant finding. IMPRESSION: NG tube appears adequate. L stable. TECHNICAL DOCUMENTATION: JOB ID: [id number] [employer]- All Rights Reserved
[2017-04-27] MEDS: IMIPENEM/CILASTATIN SODIUM 500 MG in NORMAL SALINE 100 ML IV SCH ×4 (03:17→22:22)
[2017-04-27] MEDS: ACETAMINOPHEN 325 MG TABLET NG PRN ×2 (03:18→17:03)
[2017-04-27 04:56] LABS: ABSOLUTE LYMPHOCYTES (AUTO) 1.4 10^3/uL (0.5-4.7); ABSOLUTE MONOCYTES (AUTO) 1.1 10^3/uL (0.1-1.4); BASOPHILS % (AUTO) 0.4 % (0-2); EOSINOPHILS % (AUTO) 0.2 % (0-6); HEMATOCRIT 34.4 % (37.9-51.0); HGB HCT DIFFERENCE 0.7; LYMPHOCYTES % (AUTO) 11.8 % (13-45); MEAN CORPUSCULAR HEMOGLOBIN 31.7 pg (27.0-33.4); MEAN CORPUSCULAR VOLUME 93 fl (80-97); MONOCYTES % (AUTO) 9.7 % (3-13); RED BLOOD COUNT 3.69 10^6/uL (4.35-5.55); RED CELL DISTRIBUTION WIDTH 14.1 % (11.5-14.0); SEGMENTED NEUTROPHILS % (AUTO) 77.9 % (42-78); WHITE BLOOD COUNT 11.5 10^3/uL (4.0-10.5)
[2017-04-27 04:59] LABS: HEMOGLOBIN 11.7 g/dL (13.5-17.0)
[2017-04-27 05:01] LABS: ANION GAP 9 (5-19); BLOOD UREA NITROGEN 19 mg/dL (7-20); CALCIUM 8.3 mg/dL (8.4-10.2); CARBON DIOXIDE 23 mmol/L (22-30); CHLORIDE 108 mmol/L (98-107); CREATININE RESULT 0.81 mg/dL (0.52-1.25); GLUCOSE 137 mg/dL (75-110); MAGNESIUM 1.5 mg/dL (1.6-2.3); PHOSPHORUS 3.4 mg/dL (2.5-4.5); POTASSIUM 3.8 mmol/L (3.6-5.0); SODIUM 140.4 mmol/L (137-145)
[2017-04-27] MEDS: NORMAL SALINE 1000 ML 1,000 ML IV PRN ×2 (06:00→22:21)
[2017-04-27] MEDS ORDERED: MAGNESIUM SULFATE/D5W 1 GM/100 ML RTUPB IV ONE (07:00)
[2017-04-27] MEDS: FAMOTIDINE INJ/PF 20 MG/2 ML SDV IV SCH ×2 (09:18→22:28)
[2017-04-27] MEDS: ENOXAPARIN SODIUM INJ 40 MG/0.4 ML DISP.SYRIN SUBCUT SCH (09:19)
[2017-04-27] MEDS ORDERED: BISACODYL 10 MG SUPP.RECT PR ONE ×2 (09:31→10:30)
--- NOTE | 2017-04-27 09:40 | PDOC PROGRESS REPORT ---
Subjective Progress Note for:: 04/27/17 Subjective:: Patient much better this morning. He is more awake and alert. He responds to questions appropriately. Patient states he does not feel better because nasogastric tube is in. Otherwise had diarrhea with nausea and vomiting prior to admission and the patient remember what happened. No reported respiratory distress, temperature spikes, chills nor fever. Less output noted on the nasogastric tube. Physical Exam Vital Signs: Temp Pulse Resp BP Pulse Ox 98.8 F 70 23 H 98/41 L 92 04/27/17 08:50 04/27/17 08:50 04/27/17 08:50 04/27/17 08:50 04/27/17 08:50 Intake & Output 04/26/17 04/27/17 04/28/17 06:59 06:59 06:59 Intake Total 2250 Output Total 575 Balance 1675 Weight 101.3 kg General appearance: PRESENT: no acute distress, morbidly obese, other - Nasogastric tube is in place Head exam: PRESENT: normocephalic Eye exam: PRESENT: EOMI Mouth exam: PRESENT: moist, neck supple Neck exam: ABSENT: JVD Respiratory exam: PRESENT: clear to auscultation alfonso - Anteriorly. ABSENT: rhonchi, wheezes Cardiovascular exam: PRESENT: RRR. ABSENT: gallop GI/Abdominal exam: PRESENT: distended, hypoactive bowel sounds, soft. ABSENT: tenderness Extremities exam: PRESENT: other - Trace pretibial edema Neurological exam: PRESENT: alert, awake, oriented to situation Skin exam: PRESENT: dry, warm. ABSENT: cyanosis Results Laboratory Results: 04/27/17 04:37 04/27/17 04:37 04/26/17 04/27/17 04/27/17 18:30 04:37 04:37 WBC 11.5 H RBC 3.69 L Hgb 11.7 L D Hct 34.4 L MCV 93 MCH 31.7 MCHC 34.0 RDW 14.1 H Plt Count 158 Seg Neutrophils % 77.9 Lymphocytes % 11.8 L Monocytes % 9.7 Eosinophils % 0.2 Basophils % 0.4 Absolute Neutrophils 9.0 H Absolute Lymphocytes 1.4 Absolute Monocytes 1.1 Absolute Eosinophils 0.0 Absolute Basophils 0.0 Sodium 140.4 Potassium 3.8 Chloride 108 H Carbon Dioxide 23 Anion Gap 9 BUN 19 Creatinine 0.81 Est GFR ( Amer) > 60 Est GFR (Non-Af Amer) > 60 Glucose 137 H Lactic Acid 2.3 H Calcium 8.3 L Phosphorus 3.4 Magnesium 1.5 L 04/26/17 17:42 Troponin I < 0.012 Impressions: Chest X-Ray 04/26/17 12:21 IMPRESSION: Again there is blunting of the left costophrenic angle which could represent pleural reaction or small left pleural effusion. Visualized lung ryder are otherwise clear. Other findings as noted above Abdomen/Pelvis CT 04/26/17 12:45 IMPRESSION: Multiple air and fluid distended large and small bowel loops are identified as noted above most consistent with an ileus pattern although the possibility of an underlying obstruction cannot be excluded. Clinical correlation is recommended. Other findings as noted above KUB X-Ray 04/27/17 00:00 IMPRESSION: NG tube appears adequate. L stable. Assessment & Plan - Diagnosis (1) Sepsis Qualifiers: Sepsis type: sepsis due to unspecified organism Qualified Code(s): A41.9 - Sepsis, unspecified organism Is this a current diagnosis for this admission?: Yes (2) Infectious colitis Is this a current diagnosis for this admission?: Yes (3) Atrial fibrillation with rapid ventricular response Is this a current diagnosis for this admission?: Yes (4) Ileus, unspecified Is this a current diagnosis for this admission?: Yes (5) COPD exacerbation Is this a current diagnosis for this admission?: Yes (6) Wegeners granulomatosis Is this a current diagnosis for this admission?: Yes (7) Peripheral vascular disease Is this a current diagnosis for this admission?: Yes (8) Dementia Qualifiers: Dementia type: Parkinson's disease Dementia behavioral disturbance: without behavioral disturbance Qualified Code(s): G20 - Parkinson's disease; F02.80 - Dementia in other diseases classified elsewhere without behavioral disturbance Is this a current diagnosis for this admission?: Yes (9) Essential hypertension Is this a current diagnosis for this admission?: Yes (10) GERD (gastroesophageal reflux disease) Qualifiers: Esophagitis presence: without esophagitis Qualified Code(s): K21.9 - Gastro -esophageal reflux disease without esophagitis Is this a current diagnosis for this admission?: Yes (11) Celiac disease Is this a current diagnosis for this admission?: Yes (12) Diabetes mellitus type 2 in nonobese Is this a current diagnosis for this admission?: Yes (13) History of pulmonary embolus (PE) Is this a current diagnosis for this admission?: Yes (14) Parkinsons disease Is this a current diagnosis for this admission?: Yes - Time Time Spent with patient: 25-34 minutes - Plan Summary Plan Summary: Patient showed clinical improvement. We will keep current antibiotic for now. We will try the patient on Dulcolax suppository and subsequently discontinue nasogastric tube. Continue IV hydration. Monitor electrolytes. His fever has improved as well as his respirations. Continue supportive care. Heart rate is now controlled as well. Elevated lactic acid could just be from his metformin.
--- NOTE | 2017-04-27 13:01 | PDOC PROGRESS REPORT ---
Subjective Progress Note for:: 04/27/17 Subjective:: Patient states he feels better did have some small bowel movement. Patient relates she has a history of celiac sprue. His family states he looks and feels better. Output overnight adequate. Physical Exam Vital Signs: Temp Pulse Resp BP Pulse Ox 98.7 F 62 20 121/59 L 92 04/27/17 11:06 04/27/17 11:06 04/27/17 11:06 04/27/17 11:06 04/27/17 11:06 Intake & Output 04/26/17 04/27/17 04/28/17 06:59 06:59 06:59 Intake Total 2250 Output Total 575 Balance 1675 Weight 101.3 kg 101.3 kg General appearance: PRESENT: no acute distress GI/Abdominal exam: PRESENT: other - Abdomen is soft it is distended chronic scars, with chronic hernias nonincarcerated. There are no peritoneal signs no rigidity. Patient not taking p.o. pain medication or IV. Results Laboratory Results: 04/27/17 04:37 04/27/17 04:37 04/26/17 04/27/17 04/27/17 18:30 04:37 04:37 WBC 11.5 H RBC 3.69 L Hgb 11.7 L D Hct 34.4 L MCV 93 MCH 31.7 MCHC 34.0 RDW 14.1 H Plt Count 158 Seg Neutrophils % 77.9 Lymphocytes % 11.8 L Monocytes % 9.7 Eosinophils % 0.2 Basophils % 0.4 Absolute Neutrophils 9.0 H Absolute Lymphocytes 1.4 Absolute Monocytes 1.1 Absolute Eosinophils 0.0 Absolute Basophils 0.0 Sodium 140.4 Potassium 3.8 Chloride 108 H Carbon Dioxide 23 Anion Gap 9 BUN 19 Creatinine 0.81 Est GFR ( Amer) > 60 Est GFR (Non-Af Amer) > 60 Glucose 137 H Lactic Acid 2.3 H Calcium 8.3 L Phosphorus 3.4 Magnesium 1.5 L 04/26/17 17:42 Troponin I < 0.012 Impressions: Chest X-Ray 04/26/17 12:21 IMPRESSION: Again there is blunting of the left costophrenic angle which could represent pleural reaction or small left pleural effusion. Visualized lung ryder are otherwise clear. Other findings as noted above Abdomen/Pelvis CT 04/26/17 12:45 IMPRESSION: Multiple air and fluid distended large and small bowel loops are identified as noted above most consistent with an ileus pattern although the possibility of an underlying obstruction cannot be excluded. Clinical correlation is recommended. Other findings as noted above KUB X-Ray 04/27/17 00:00 IMPRESSION: NG tube appears adequate. L stable. Assessment & Plan - Diagnosis (1) Dynamic ileus Is this a current diagnosis for this admission?: Yes Plan: Patient is clinically improved. The exact etiology of his optic episode remains unclear. The abdomen clinically is benign, and I believe the ileus is secondary to his septic episode which appears to be clearing based on his clinical improvement, and laboratory profile Plan: 1. I discussed the above with the Dr. Olmedo. We will continue to port the patient; I believe it safe to remove the nasogastric tube since it is not decompressing his distal small bowel and colon. 2. Will sign off from a surgical standpoint; reconsult if needed.
[2017-04-28] MEDS: METRONIDAZOLE 500 MG/NS RTU 100 ML IV SCH ×2 (00:07→05:37)
[2017-04-28] MEDS: IPRATROPIUM/ALBUTEROL 0.5-2.5 MG/3 ML AMPUL NEB SCH ×4 (01:44→20:20)
[2017-04-28] MEDS: ACETAMINOPHEN 325 MG TABLET NG PRN (02:18)
[2017-04-28 05:11] LABS: HEMATOCRIT 33.6 % (37.9-51.0); HEMOGLOBIN 11.6 g/dL (13.5-17.0); HGB HCT DIFFERENCE 1.2; MEAN CORPUSCULAR HEMOGLOBIN 32.2 pg (27.0-33.4); MEAN CORPUSCULAR HGB CONC 34.6 g/dL (32.0-36.0); MEAN CORPUSCULAR VOLUME 93 fl (80-97); RED BLOOD COUNT 3.61 10^6/uL (4.35-5.55); RED CELL DISTRIBUTION WIDTH 14.3 % (11.5-14.0); WHITE BLOOD COUNT 9.7 10^3/uL (4.0-10.5)
[2017-04-28 05:26] LABS: ANION GAP 7 (5-19); BLOOD UREA NITROGEN 13 mg/dL (7-20); CALCIUM 8.1 mg/dL (8.4-10.2); CARBON DIOXIDE 20 mmol/L (22-30); CHLORIDE 111 mmol/L (98-107); GLUCOSE 105 mg/dL (75-110); MAGNESIUM 1.8 mg/dL (1.6-2.3); PHOSPHORUS 2.1 mg/dL (2.5-4.5); POTASSIUM 3.6 mmol/L (3.6-5.0); SODIUM 138.4 mmol/L (137-145)
[2017-04-28] MEDS: IMIPENEM/CILASTATIN SODIUM 500 MG in NORMAL SALINE 100 ML IV SCH ×2 (05:38→09:06)
[2017-04-28] MEDS: ENOXAPARIN SODIUM INJ 40 MG/0.4 ML DISP.SYRIN SUBCUT SCH (09:21)
[2017-04-28] MEDS: FAMOTIDINE INJ/PF 20 MG/2 ML SDV IV SCH ×2 (09:21→22:50)
[2017-04-28] MEDS ORDERED: (PENDING PHARMACY ID) (Lisinopril [Prinivil 2.5 Mg Tablet] 2.5 MG) PO SCH (10:00)
[2017-04-28] MEDS: MAGNESIUM OXIDE 400 MG TABLET PO SCH ×3 (10:17→17:04)
[2017-04-28] MEDS: LISINOPRIL 5 MG TABLET PO SCH (10:17)
[2017-04-28] MEDS: MIRTAZAPINE 15 MG TABLET PO SCH (10:18)
[2017-04-28] MEDS: TAMSULOSIN HCL 0.4 MG CAP.SR.24H PO SCH (10:18)
[2017-04-28] MEDS: CARBIDOPA/LEVODOPA 25-100 MG TABLET PO SCH ×2 (13:30→22:50)
[2017-04-28] MEDS: AMOXICILLIN TR/POT CLAVULANATE 500-125 MG TAB PO SCH ×2 (13:30→22:49)
[2017-04-28] MEDS: METRONIDAZOLE 500 MG TABLET PO SCH ×2 (13:30→22:49)
--- NOTE | 2017-04-28 14:03 | PDOC PROGRESS REPORT ---
Subjective Progress Note for:: 04/28/17 Subjective:: Patient denies any complaints. Physical Exam Vital Signs: Temp Pulse Resp BP Pulse Ox 98.6 F 57 L 20 130/60 H 99 04/28/17 12:54 04/28/17 12:54 04/28/17 12:54 04/28/17 12:54 04/28/17 12:54 Intake & Output 04/27/17 04/28/17 04/29/17 06:59 06:59 06:59 Intake Total 2250 4958 598 Output Total 575 1050 800 Balance 1675 3908 -202 Weight 101.3 kg 104.3 kg General appearance: PRESENT: no acute distress Eye exam: PRESENT: conjunctiva pink. ABSENT: scleral icterus Mouth exam: PRESENT: moist, tongue midline Neck exam: ABSENT: JVD Respiratory exam: PRESENT: clear to auscultation alfonso. ABSENT: rales, rhonchi, wheezes Cardiovascular exam: PRESENT: RRR. ABSENT: diastolic murmur, rubs, systolic murmur GI/Abdominal exam: PRESENT: normal bowel sounds, soft. ABSENT: distended, guarding, mass, organolmegaly, rebound, tenderness Extremities exam: ABSENT: calf tenderness, clubbing, pedal edema Neurological exam: PRESENT: alert, awake, oriented to person, oriented to place , oriented to time, oriented to situation, CN II-XII grossly intact. ABSENT: motor sensory deficit Psychiatric exam: PRESENT: appropriate affect Skin exam: PRESENT: dry, intact, warm. ABSENT: cyanosis, rash Results Laboratory Results: 04/28/17 04:36 04/28/17 04:36 04/28/17 04/28/17 04:36 04:36 WBC 9.7 RBC 3.61 L Hgb 11.6 L Hct 33.6 L MCV 93 MCH 32.2 MCHC 34.6 RDW 14.3 H Plt Count 138 L Sodium 138.4 Potassium 3.6 Chloride 111 H Carbon Dioxide 20 L Anion Gap 7 BUN 13 Creatinine 0.70 Est GFR ( Amer) > 60 Est GFR (Non-Af Amer) > 60 Glucose 105 Calcium 8.1 L Phosphorus 2.1 L Magnesium 1.8 04/26/17 17:42 Troponin I < 0.012 Impressions: Chest X-Ray 04/26/17 12:21 IMPRESSION: Again there is blunting of the left costophrenic angle which could represent pleural reaction or small left pleural effusion. Visualized lung ryder are otherwise clear. Other findings as noted above Abdomen/Pelvis CT 04/26/17 12:45 IMPRESSION: Multiple air and fluid distended large and small bowel loops are identified as noted above most consistent with an ileus pattern although the possibility of an underlying obstruction cannot be excluded. Clinical correlation is recommended. Other findings as noted above KUB X-Ray 04/27/17 00:00 IMPRESSION: NG tube appears adequate. L stable. Assessment & Plan - Diagnosis (1) Sepsis Qualifiers: Sepsis type: sepsis due to unspecified organism Qualified Code(s): A41.9 - Sepsis, unspecified organism Is this a current diagnosis for this admission?: Yes Plan: Most likely secondary to infectious colitis. Will DC the IV antibiotics and start on p.o. Flagyl and Augmentin. (2) Infectious colitis Is this a current diagnosis for this admission?: Yes Plan: Improved with IV antibiotics. Will switch to oral antibiotics as he has no pain and no diarrhea. (3) Atrial fibrillation with rapid ventricular response Is this a current diagnosis for this admission?: Yes Plan: Patient is rate control. (4) Dementia Qualifiers: Dementia type: Parkinson's disease Dementia behavioral disturbance: without behavioral disturbance Qualified Code(s): G20 - Parkinson's disease; F02.80 - Dementia in other diseases classified elsewhere without behavioral disturbance Is this a current diagnosis for this admission?: Yes Plan: Patient is alert and oriented 3 at this time. (5) Essential hypertension Is this a current diagnosis for this admission?: Yes Plan: Blood pressure is under good control. (6) GERD (gastroesophageal reflux disease) Qualifiers: Esophagitis presence: without esophagitis Qualified Code(s): K21.9 - Gastro -esophageal reflux disease without esophagitis Is this a current diagnosis for this admission?: Yes Plan: Asymptomatic (7) Ileus, unspecified Is this a current diagnosis for this admission?: Yes Plan: Resolved. (8) Peripheral vascular disease Is this a current diagnosis for this admission?: Yes (9) Wegeners granulomatosis Is this a current diagnosis for this admission?: Yes (10) COPD exacerbation Is this a current diagnosis for this admission?: Yes Plan: No wheezing on exam today. (11) Celiac disease Is this a current diagnosis for this admission?: Yes (12) Diabetes mellitus type 2 in nonobese Is this a current diagnosis for this admission?: Yes Plan: Blood sugars are under good control. (13) History of pulmonary embolus (PE) Is this a current diagnosis for this admission?: Yes (14) Parkinsons disease Is this a current diagnosis for this admission?: Yes Plan: Continue with Sinemet - Time Time Spent with patient: 25-34 minutes - Inpatient Certification Medical Necessity: Need Close Monitoring Due to Risk of Patient Decompensation - Plan Summary Plan Summary: If he tolerates oral antibiotics, we will plan on discharge home tomorrow.
[2017-04-28] MEDS ORDERED: INSULIN LISPRO 100 UNIT/ML 3 ML VIAL SUBCUT PRN (15:18)
[2017-04-28] MEDS: ASPIRIN 81 MG TABLET, CHEWABLE PO SCH (17:04)
[2017-04-28] MEDS: NORMAL SALINE 1000 ML 1,000 ML IV PRN (20:18)
[2017-04-28] MEDS ORDERED: (PENDING PHARMACY ID) (Memantine Hcl [Namenda] 5 MG) PO SCH (22:00)
[2017-04-28] MEDS ORDERED: (PENDING PHARMACY ID) (Clonazepam [Klonopin] 0.5 MG) PO SCH (22:00)
[2017-04-28] MEDS: MEMANTINE HCL 10 MG TABLET PO SCH (22:49)
[2017-04-28] MEDS: CLONAZEPAM 1 MG TABLET PO SCH (22:50)
[2017-04-28] MEDS: MONTELUKAST SODIUM 10 MG TABLET PO SCH (22:57)
[2017-04-29] MEDS: IPRATROPIUM/ALBUTEROL 0.5-2.5 MG/3 ML AMPUL NEB SCH ×4 (02:04→20:38)
[2017-04-29] MEDS: NORMAL SALINE 1000 ML 1,000 ML IV PRN ×2 (02:07→07:26)
[2017-04-29 05:46] LABS: ANION GAP 6 (5-19); BLOOD UREA NITROGEN 9 mg/dL (7-20); CALCIUM 8.1 mg/dL (8.4-10.2); CARBON DIOXIDE 22 mmol/L (22-30); CHLORIDE 111 mmol/L (98-107); GLUCOSE 115 mg/dL (75-110); POTASSIUM 3.9 mmol/L (3.6-5.0); SODIUM 139.1 mmol/L (137-145)
[2017-04-29] MEDS: AMOXICILLIN TR/POT CLAVULANATE 500-125 MG TAB PO SCH ×3 (06:03→21:34)
[2017-04-29] MEDS: METRONIDAZOLE 500 MG TABLET PO SCH ×3 (06:03→21:34)
[2017-04-29] MEDS: CARBIDOPA/LEVODOPA 25-100 MG TABLET PO SCH ×3 (06:04→21:34)
[2017-04-29 06:16] LABS: ABSOLUTE BASOPHILS # (AUTO) 0.1 10^3/uL (0.0-0.2); ABSOLUTE EOSINOPHILS # (AUTO) 0.1 10^3/uL (0.0-0.6); ABSOLUTE LYMPHOCYTES (AUTO) 1.1 10^3/uL (0.5-4.7); BASOPHILS % (AUTO) 0.6 % (0-2); EOSINOPHILS % (AUTO) 1.2 % (0-6); HEMATOCRIT 36.1 % (37.9-51.0); HEMOGLOBIN 12.1 g/dL (13.5-17.0); HGB HCT DIFFERENCE 0.2; LYMPHOCYTES % (AUTO) 10.3 % (13-45); MEAN CORPUSCULAR HEMOGLOBIN 31.5 pg (27.0-33.4); MEAN CORPUSCULAR HGB CONC 33.4 g/dL (32.0-36.0); MEAN CORPUSCULAR VOLUME 95 fl (80-97); MONOCYTES % (AUTO) 9.5 % (3-13); RED BLOOD COUNT 3.82 10^6/uL (4.35-5.55); RED CELL DISTRIBUTION WIDTH 14.5 % (11.5-14.0); SEGMENTED NEUTROPHILS % (AUTO) 78.4 % (42-78); WHITE BLOOD COUNT 10.2 10^3/uL (4.0-10.5)
--- NOTE | 2017-04-29 10:04 | PDOC PROGRESS REPORT ---
Subjective Progress Note for:: 04/29/17 Subjective:: Patient is drowsy but will awaken. He denies any complaints. Physical Exam Vital Signs: Temp Pulse Resp BP Pulse Ox 98.7 F 66 22 H 122/60 94 04/29/17 07:38 04/29/17 08:23 04/29/17 08:23 04/29/17 07:38 04/29/17 08:23 Intake & Output 04/28/17 04/29/17 04/30/17 06:59 06:59 06:59 Intake Total 4958 5448 Output Total 1050 3600 Balance 3908 1848 Weight 104.3 kg 103 kg General appearance: PRESENT: no acute distress Eye exam: PRESENT: conjunctiva pink. ABSENT: scleral icterus Mouth exam: PRESENT: moist, tongue midline Neck exam: ABSENT: JVD Respiratory exam: PRESENT: rhonchi - Coarse rhonchi bilaterally.. ABSENT: rales , wheezes Cardiovascular exam: PRESENT: RRR. ABSENT: diastolic murmur, rubs, systolic murmur GI/Abdominal exam: PRESENT: normal bowel sounds, soft. ABSENT: distended, guarding, mass, organolmegaly, rebound, tenderness Extremities exam: ABSENT: calf tenderness, clubbing, pedal edema Neurological exam: PRESENT: other - Patient is drowsy but arousable. No focal findings. Psychiatric exam: PRESENT: flat affect Skin exam: PRESENT: dry, intact, warm. ABSENT: cyanosis, rash Results Laboratory Results: 04/29/17 04:40 04/29/17 04:40 04/29/17 04/29/17 04:40 04:40 WBC 10.2 RBC 3.82 L Hgb 12.1 L Hct 36.1 L MCV 95 MCH 31.5 MCHC 33.4 RDW 14.5 H Plt Count 152 Seg Neutrophils % 78.4 H Lymphocytes % 10.3 L Monocytes % 9.5 Eosinophils % 1.2 Basophils % 0.6 Absolute Neutrophils 8.0 Absolute Lymphocytes 1.1 Absolute Monocytes 1.0 Absolute Eosinophils 0.1 Absolute Basophils 0.1 Sodium 139.1 Potassium 3.9 Chloride 111 H Carbon Dioxide 22 Anion Gap 6 BUN 9 Creatinine 0.70 Est GFR ( Amer) > 60 Est GFR (Non-Af Amer) > 60 Glucose 115 H Calcium 8.1 L 04/27/17 00:07 Lema Catheter Urine Culture - Final NO GROWTH 2 DAYS 04/26/17 17:42 Troponin I < 0.012 Impressions: Chest X-Ray 04/26/17 12:21 IMPRESSION: Again there is blunting of the left costophrenic angle which could represent pleural reaction or small left pleural effusion. Visualized lung ryder are otherwise clear. Other findings as noted above Abdomen/Pelvis CT 04/26/17 12:45 IMPRESSION: Multiple air and fluid distended large and small bowel loops are identified as noted above most consistent with an ileus pattern although the possibility of an underlying obstruction cannot be excluded. Clinical correlation is recommended. Other findings as noted above KUB X-Ray 04/27/17 00:00 IMPRESSION: NG tube appears adequate. L stable. Assessment & Plan - Diagnosis (1) Sepsis Qualifiers: Sepsis type: sepsis due to unspecified organism Qualified Code(s): A41.9 - Sepsis, unspecified organism Is this a current diagnosis for this admission?: Yes Plan: Most likely secondary to infectious colitis. Will continue on p.o. Flagyl and Augmentin. (2) Infectious colitis Is this a current diagnosis for this admission?: Yes Plan: Continue with oral antibiotics. (3) Atrial fibrillation with rapid ventricular response Is this a current diagnosis for this admission?: Yes Plan: Patient is rate control. (4) Dementia Qualifiers: Dementia type: Parkinson's disease Dementia behavioral disturbance: without behavioral disturbance Qualified Code(s): G20 - Parkinson's disease; F02.80 - Dementia in other diseases classified elsewhere without behavioral disturbance Is this a current diagnosis for this admission?: Yes Plan: Patient is more drowsy today. (5) Essential hypertension Is this a current diagnosis for this admission?: Yes Plan: Blood pressure is under good control. (6) GERD (gastroesophageal reflux disease) Qualifiers: Esophagitis presence: without esophagitis Qualified Code(s): K21.9 - Gastro -esophageal reflux disease without esophagitis Is this a current diagnosis for this admission?: Yes Plan: Asymptomatic. Will consult speech therapy to see if he is having aspiration. (7) Ileus, unspecified Is this a current diagnosis for this admission?: Yes Plan: Resolved. (8) Peripheral vascular disease Is this a current diagnosis for this admission?: Yes (9) Wegeners granulomatosis Is this a current diagnosis for this admission?: Yes (10) COPD exacerbation Is this a current diagnosis for this admission?: Yes Plan: No wheezing on exam today. I am concerned that he may have a component of aspiration and will consult speech therapy. (11) Celiac disease Is this a current diagnosis for this admission?: Yes (12) Diabetes mellitus type 2 in nonobese Is this a current diagnosis for this admission?: Yes Plan: Blood sugars are under good control. (13) History of pulmonary embolus (PE) Is this a current diagnosis for this admission?: Yes (14) Parkinsons disease Is this a current diagnosis for this admission?: Yes Plan: Continue with Sinemet. He has some coarse breath sounds along with coughing. I am concerned that he may have a component of aspiration and we will consult speech therapy. - Time Time Spent with patient: 25-34 minutes - Inpatient Certification Medical Necessity: Need Close Monitoring Due to Risk of Patient Decompensation
[2017-04-29] MEDS: LISINOPRIL 5 MG TABLET PO SCH (10:38)
[2017-04-29] MEDS: MIRTAZAPINE 15 MG TABLET PO SCH (10:38)
[2017-04-29] MEDS: TAMSULOSIN HCL 0.4 MG CAP.SR.24H PO SCH (10:38)
[2017-04-29] MEDS: MAGNESIUM OXIDE 400 MG TABLET PO SCH ×3 (10:38→17:30)
[2017-04-29] MEDS: FAMOTIDINE INJ/PF 20 MG/2 ML SDV IV SCH ×2 (10:38→21:33)
[2017-04-29] MEDS: ENOXAPARIN SODIUM INJ 40 MG/0.4 ML DISP.SYRIN SUBCUT SCH (10:38)
[2017-04-29] MEDS: ASPIRIN 81 MG TABLET, CHEWABLE PO SCH (17:30)
--- NOTE | 2017-04-29 17:53 | ST Inp Modified Barium Swallow ---
Medical Diagnosis - Medical Diagnoses Medical Diagnosis Description & ICD-10 Code(s): sepsis, dysphagia [place] [facility] [place]: 04/29/17 - History History Obtained From: Other - EMR -: Medical - PMH per EMR: A.Fib, hyperlipidemia, HTN, PVD, pulmonary embolism, COPD, pneumonia, DMII, GERD, arthritis, dementia Recently removed NG tube, was noted to start coughing on liquids. Medications: Medications Reviewed Allergies: Refer to medical record - Subjective Current Nutritional Means: PO - clear liquid diet, to be advanced as tolerated Current Symptoms: Coughing, Pneumonia Pain: Patient reports, 0/5 - Objective Assessment: Upright, Left Lateral - Food Trials Food Trials Used: Thin liquids, Honey-thickened liquids, Pureed The Patient: fed by ST, via spoon - Assessment Labial Function: Impaired - poor labial seal on spoon Lingual Function: Impaired - reduced movement Mandibular Function: Age appropriate Laryngeal Function: Throat Clear - gurgly throat clear heard on command, weak voicing, no volitional swallow - Pharyngeal Stage Initiation of Pharyngeal Stage: Delayed - swallow initiation delayed, delay improved with subsequent trial Reflex Delay Time (seconds): 8 - on first trial Decreased Laryngeal Elevation: Yes Reduced Velo-Pharyngeal Closure: no Reduced Pressure Generation: Yes Pre-Swallowing Pooling in Valleculae: Moderate - for liquid and puree trials Pre-Swallowing Pooling in Pyriforms: Mild - on thin liquid trial only Reduced Thyro-Hyiod Approximation: Yes Reduced Epiglottic Excursion: No Post Swallow Residuals in Valleculae: Mild - for all trials Post Swallow Residuals in Pyriforms: Mild - for puree texture Pahryngeal Stage Comments: Patient demonstrated significantly delayed swallow reflex initially. However, swallow reflex improved with subsequent trials. Patient's lethargy may have been impacting swallow function. - Impression/Summary Tracheal Aspiration: yes, silent, before swallow - on thin liquid trials x2, and with honey thick liquid on 1/4 trials. Effective Clearing: partial clearing Effective Compensatory Strategies: throat clear & reswallow Patient Presents With: Oral-Pharyngeal dysph., Severe Risk of Aspiration: Moderate Risk of Nutritional Compromise: Moderate - Recommendations Solid Diet Recommendations: Pureed Liquid Diet Recommendations: Honey-Thick Strict Aspitarion Precautions: Yes Dysphagia Therapy with NEUROLOGY EPILEPSY PHYSICIAN: Yes Recommended Techniques: Small Bites and Sips Supervision: requires assistance - Time Total Time: 20 Total Timed Minutes: 20 Charge G Code? - - -: Yes ST F.L. Impairment Category - Rationale Based On Rationale Based On: Clin Find., Obj Measures - Swallowing Current G8996: CL 60-79% Impaired Goal G8997: CI 1-19% Impaired
--- NOTE | 2017-04-29 19:42 | RADIOLOGY REPORT (SQ) ---
EXAM DESCRIPTION: DEBIE SWALLOW COMPLETED DATE/TIME: 04/29/2017 10:11 am REASON FOR STUDY: possible aspiration COMPARISON: None. TECHNIQUE: Videofluoroscopic swallowing examination was performed in conjunction with speech patholo gy. Videofluoroscopic imaging was obtained and reviewed and these are the findings: RADIATION DOSE: Fluoro time 2 minutes 1 images saved to PACS. LIMITATIONS: None FINDINGS: The patient was brought into the fluoro room and placed upright on a modified barium swall ow chair. The patient was then given multiple consistencies mixed with barium to swallow under live fluoroscopic video guidance. According to the Speech Pathologist there was laryngeal penetration wit h thin and honey thick consistencies, with probable trace aspiration for both. Please refer to the [facility] pathology report for further details. IMPRESSION: LARYNGEAL PENETRATION WITH PROBABLE TRACE ASPIRATION WITH THIN AND HONEY THICK CONSISTEN CIES.PLEASE SEE SPEECH PATHOLOGIST REPORT FOR OTHER FINDINGS AND RECOMMENDATIONS. COMMENT: None Quality ID [id number]: Final reports for procedures using fluoroscopy that document radiation exposure pérez wilda, or exposure time and number of fluorographic images (if radiation exposure indices are not avail able) TECHNICAL DOCUMENTATION: JOB ID: [id number] [employer]- All Rights Reserved
[2017-04-29] MEDS: MEMANTINE HCL 10 MG TABLET PO SCH (21:35)
[2017-04-29] MEDS: CLONAZEPAM 1 MG TABLET PO SCH (21:35)
[2017-04-29] MEDS: MONTELUKAST SODIUM 10 MG TABLET PO SCH (21:35)
[2017-04-29] MEDS ORDERED: DILTIAZEM HCL 60 MG TABLET ONE (22:50)
[2017-04-29] MEDS ORDERED: NORMAL SALINE 1000 ML 1,000 ML IV ONE (23:00)
[2017-04-29] MEDS ORDERED: DILTIAZEM HCL 60 MG TABLET PO ONE (23:00)
[2017-04-30] MEDS: NORMAL SALINE 1000 ML 1,000 ML IV PRN (00:17)
[2017-04-30] MEDS: ACETAMINOPHEN 325 MG TABLET NG PRN (01:31)
[2017-04-30] MEDS: IPRATROPIUM/ALBUTEROL 0.5-2.5 MG/3 ML AMPUL NEB SCH ×4 (01:39→20:00)
[2017-04-30 01:47] LABS: ABSOLUTE BASOPHILS # (AUTO) 0.1 10^3/uL (0.0-0.2); ABSOLUTE EOSINOPHILS # (AUTO) 0.1 10^3/uL (0.0-0.6); ABSOLUTE LYMPHOCYTES (AUTO) 1.2 10^3/uL (0.5-4.7); ABSOLUTE MONOCYTES (AUTO) 1.1 10^3/uL (0.1-1.4); ABSOLUTE NEUT (AUTO) 7.4 10^3/uL (1.7-8.2); BASOPHILS % (AUTO) 0.6 % (0-2); EOSINOPHILS % (AUTO) 1.1 % (0-6); HEMATOCRIT 38.8 % (37.9-51.0); HGB HCT DIFFERENCE 0.2; LYMPHOCYTES % (AUTO) 12.5 % (13-45); MEAN CORPUSCULAR HEMOGLOBIN 31.1 pg (27.0-33.4); MEAN CORPUSCULAR HGB CONC 33.5 g/dL (32.0-36.0); MEAN CORPUSCULAR VOLUME 93 fl (80-97); RED BLOOD COUNT 4.18 10^6/uL (4.35-5.55); RED CELL DISTRIBUTION WIDTH 14.3 % (11.5-14.0); SEGMENTED NEUTROPHILS % (AUTO) 74.8 % (42-78); WHITE BLOOD COUNT 9.9 10^3/uL (4.0-10.5)
[2017-04-30 01:50] LABS: ANION GAP 8 (5-19); BLOOD UREA NITROGEN 9 mg/dL (7-20); CALCIUM 8.2 mg/dL (8.4-10.2); CARBON DIOXIDE 21 mmol/L (22-30); CHLORIDE 109 mmol/L (98-107); CREATINE KINASE 141 U/L (55-170); CREATININE RESULT 0.65 mg/dL (0.52-1.25); GLUCOSE 128 mg/dL (75-110); SODIUM 137.8 mmol/L (137-145)
[2017-04-30 02:03] LABS: ARTERIAL BLOOD O2 SATURATION 97.3 % (94-98)
[2017-04-30 02:06] LABS: CREATINE KINASE MB 0.75 ng/mL (<4.55)
[2017-04-30 02:08] LABS: TROPONIN I < 0.012 ng/mL
--- NOTE | 2017-04-30 03:30 | RADIOLOGY REPORT (SQ) ---
EXAM DESCRIPTION: CHEST SINGLE VIEW COMPLETED DATE/TIME: 04/30/2017 3:11 am REASON FOR STUDY: sob COMPARISON: 04/26/2017. EXAM PARAMETERS: NUMBER OF VIEWS: One view. TECHNIQUE: Single frontal radiographic view of the chest acquired. RADIATION DOSE: NA LIMITATIONS: None. FINDINGS: LUNGS AND PLEURA: Moderate opacity -effusion of the left lung base. Mild interstitial mar kings. Moderate lung volume. MEDIASTINUM AND HILAR STRUCTURES: No masses. Contour normal. HEART AND VASCULAR STRUCTURES: Heart normal in size. Atherosclerosis. BONES: No acute findings. HARDWARE: None in the chest. OTHER: No other significant finding. IMPRESSION: Interval worsening includes moderate opacity -effusion of the left lower hemithorax. TECHNICAL DOCUMENTATION: JOB ID: [id number]
[2017-04-30] MEDS: CARBIDOPA/LEVODOPA 25-100 MG TABLET PO SCH ×3 (05:05→21:34)
[2017-04-30] MEDS: METRONIDAZOLE 500 MG TABLET PO SCH (05:05)
[2017-04-30] MEDS: AMOXICILLIN TR/POT CLAVULANATE 500-125 MG TAB PO SCH (05:05)
[2017-04-30 08:11] LABS: CREATINE KINASE MB 3.77 ng/mL (<4.55); TROPONIN I 0.017 ng/mL
[2017-04-30] MEDS: MIRTAZAPINE 15 MG TABLET PO SCH (09:19)
[2017-04-30] MEDS: MAGNESIUM OXIDE 400 MG TABLET PO SCH ×3 (09:19→17:43)
[2017-04-30] MEDS: FAMOTIDINE INJ/PF 20 MG/2 ML SDV IV SCH (09:19)
[2017-04-30] MEDS: ENOXAPARIN SODIUM INJ 40 MG/0.4 ML DISP.SYRIN SUBCUT SCH (09:19)
[2017-04-30] MEDS: TAMSULOSIN HCL 0.4 MG CAP.SR.24H PO SCH (09:20)
[2017-04-30] MEDS: LISINOPRIL 5 MG TABLET PO SCH (09:20)
[2017-04-30] MEDS ORDERED: ONDANSETRON HCL INJ/PF 4 MG/2 ML SDV IV PRN (10:30)
[2017-04-30] MEDS: DIGOXIN 0.125 MG TABLET PO SCH (10:56)
[2017-04-30 11:00] LABS: ARTERIAL BLOOD BASE EXCESS 0.7 mmol/L; ARTERIAL BLOOD O2 SATURATION 97.1 % (94-98)
[2017-04-30 11:25] LABS: PARTIAL THROMBOPLASTIN TIME 33.9 SEC (23.5-35.8)
--- NOTE | 2017-04-30 11:47 | PDOC PROGRESS REPORT ---
Subjective Progress Note for:: 04/30/17 Subjective:: Patient is drowsy but will awaken. He denies any complaints. Patient last night developed some tachypnea and tachycardia. Chest x-ray showed him to have a significant left-sided pleural effusion. Patient also had some H fibrillation. Patient is feeling better today. Physical Exam Vital Signs: Temp Pulse Resp BP Pulse Ox 98.1 F 97 24 H 114/69 96 04/30/17 07:16 04/30/17 08:23 04/30/17 08:23 04/30/17 07:16 04/30/17 08:23 Intake & Output 04/29/17 04/30/17 05/01/17 06:59 06:59 06:59 Intake Total 5448 2472 Output Total 3600 2150 Balance 1848 322 Weight 103 kg 103.4 kg General appearance: PRESENT: no acute distress Eye exam: PRESENT: conjunctiva pink. ABSENT: scleral icterus Mouth exam: PRESENT: moist, tongue midline Neck exam: ABSENT: JVD Respiratory exam: PRESENT: decreased breath sounds. ABSENT: rales, rhonchi, wheezes Cardiovascular exam: PRESENT: RRR. ABSENT: diastolic murmur, rubs, systolic murmur GI/Abdominal exam: PRESENT: normal bowel sounds, soft. ABSENT: distended, guarding, mass, organolmegaly, rebound, tenderness Extremities exam: ABSENT: calf tenderness, clubbing, pedal edema Neurological exam: PRESENT: oriented to person, oriented to place, oriented to time, oriented to situation, CN II-XII grossly intact. ABSENT: awake - Patient is drowsy but will awake and follows simple commands., motor sensory deficit Psychiatric exam: PRESENT: flat affect Skin exam: PRESENT: dry, intact, warm. ABSENT: cyanosis, rash Results Laboratory Results: 04/30/17 01:26 04/30/17 01:26 04/30/17 04/30/17 04/30/17 01:26 01:26 01:50 WBC 9.9 RBC 4.18 L Hgb 13.0 L Hct 38.8 MCV 93 MCH 31.1 MCHC 33.5 RDW 14.3 H Plt Count 137 L Seg Neutrophils % 74.8 Lymphocytes % 12.5 L Monocytes % 11.0 Eosinophils % 1.1 Basophils % 0.6 Absolute Neutrophils 7.4 Absolute Lymphocytes 1.2 Absolute Monocytes 1.1 Absolute Eosinophils 0.1 Absolute Basophils 0.1 Carbonic Acid 0.88 L HCO3/H2CO3 Ratio 24:1 ABG pH 7.48 H ABG pCO2 29.1 L ABG pO2 86.6 ABG HCO3 21.4 ABG O2 Saturation 97.3 ABG Base Excess -1.0 FiO2 8L Sodium 137.8 Potassium 4.0 Chloride 109 H Carbon Dioxide 21 L Anion Gap 8 BUN 9 Creatinine 0.65 Est GFR ( Amer) > 60 Est GFR (Non-Af Amer) > 60 Glucose 128 H Calcium 8.2 L 04/30/17 10:43 WBC RBC Hgb Hct MCV MCH MCHC RDW Plt Count Seg Neutrophils % Lymphocytes % Monocytes % Eosinophils % Basophils % Absolute Neutrophils Absolute Lymphocytes Absolute Monocytes Absolute Eosinophils Absolute Basophils Carbonic Acid 0.93 L HCO3/H2CO3 Ratio 25:1 ABG pH 7.49 H ABG pCO2 31.0 L ABG pO2 84.1 ABG HCO3 23.3 ABG O2 Saturation 97.1 ABG Base Excess 0.7 FiO2 2.5L Sodium Potassium Chloride Carbon Dioxide Anion Gap BUN Creatinine Est GFR ( Amer) Est GFR (Non-Af Amer) Glucose Calcium 04/27/17 00:07 Lema Catheter Urine Culture - Final NO GROWTH 2 DAYS 04/26/17 04/30/17 04/30/17 17:42 01:26 01:26 Creatine Kinase 141 CK-MB (CK-2) 0.75 Troponin I < 0.012 < 0.012 04/30/17 04/30/17 07:26 07:26 Creatine Kinase 284 H CK-MB (CK-2) 3.77 Troponin I 0.017 Impressions: Abdomen/Pelvis CT 04/26/17 12:45 IMPRESSION: Multiple air and fluid distended large and small bowel loops are identified as noted above most consistent with an ileus pattern although the possibility of an underlying obstruction cannot be excluded. Clinical correlation is recommended. Other findings as noted above KUB X-Ray 04/27/17 00:00 IMPRESSION: NG tube appears adequate. L stable. Modified Barium Swallow 04/29/17 00:00 IMPRESSION: LARYNGEAL PENETRATION WITH PROBABLE TRACE ASPIRATION WITH THIN AND HONEY THICK CONSISTENCIES.PLEASE SEE SPEECH PATHOLOGIST REPORT FOR OTHER FINDINGS AND RECOMMENDATIONS. Chest X-Ray 04/30/17 00:00 IMPRESSION: Interval worsening includes moderate opacity -effusion of the left lower hemithorax. Assessment & Plan - Diagnosis (1) Sepsis Qualifiers: Sepsis type: sepsis due to unspecified organism Qualified Code(s): A41.9 - Sepsis, unspecified organism Is this a current diagnosis for this admission?: Yes Plan: Most likely secondary to infectious colitis. The patient may have aspirated overnight. He does have a pleural effusion and some coarse rhonchi bilaterally. Will continue with antibiotics but will switch to IV Zosyn. Will ask radiology to do thoracentesis. (2) Infectious colitis Is this a current diagnosis for this admission?: Yes Plan: Antibiotics have been changed to IV because of pulmonary issues. From an infectious colitis standpoint he appears to be continued to show improvement. (3) Atrial fibrillation with rapid ventricular response Is this a current diagnosis for this admission?: Yes Plan: The patient had episodes of tachycardia last night. We will add on digoxin to his therapy. (4) Dementia Qualifiers: Dementia type: Parkinson's disease Dementia behavioral disturbance: without behavioral disturbance Qualified Code(s): G20 - Parkinson's disease; F02.80 - Dementia in other diseases classified elsewhere without behavioral disturbance Is this a current diagnosis for this admission?: Yes Plan: Patient is more drowsy today. (5) Essential hypertension Is this a current diagnosis for this admission?: Yes Plan: Blood pressure is under good control. (6) GERD (gastroesophageal reflux disease) Qualifiers: Esophagitis presence: without esophagitis Qualified Code(s): K21.9 - Gastro -esophageal reflux disease without esophagitis Is this a current diagnosis for this admission?: Yes Plan: Speech therapy has recommended honey thick liquids and pured diet. (7) Ileus, unspecified Is this a current diagnosis for this admission?: Yes Plan: Resolved. (8) Peripheral vascular disease Is this a current diagnosis for this admission?: Yes (9) Wegeners granulomatosis Is this a current diagnosis for this admission?: Yes (10) COPD exacerbation Is this a current diagnosis for this admission?: Yes Plan: No wheezing on exam today. I am concerned that he may have a component of aspiration and speech therapy evaluated the patient does show him to have a small amount of aspiration. (11) Celiac disease Is this a current diagnosis for this admission?: Yes (12) Diabetes mellitus type 2 in nonobese Is this a current diagnosis for this admission?: Yes Plan: Blood sugars are under good control. (13) History of pulmonary embolus (PE) Is this a current diagnosis for this admission?: Yes (14) Parkinsons disease Is this a current diagnosis for this admission?: Yes Plan: Continue with Sinemet. He has some coarse breath sounds along with coughing. I am concerned that he may have a component of aspiration - Time Time Spent with patient: 25-34 minutes - Inpatient Certification Medical Necessity: Need for IV Antibiotics
[2017-04-30] MEDS: PIPERACILLIN SODIUM/TAZOBACTAM 3.375 GM in NORMAL SALINE 100 ML IV SCH ×3 (11:54→23:01)
[2017-04-30 14:40] LABS: CREATINE KINASE MB 8.3 ng/mL (<4.55); TROPONIN I 0.016 ng/mL
[2017-04-30] MEDS ORDERED: DILTIAZEM HCL/D5W 125 MG/125 ML RTUINJ IV PRN (15:03)
[2017-04-30] MEDS ORDERED: DILTIAZEM HCL/D5W 125 MG/125 ML RTUINJ IV ONE (15:06)
[2017-04-30] MEDS: ACETAMINOPHEN 325 MG TABLET PO PRN ×2 (15:41→23:40)
[2017-04-30] MEDS ORDERED: DILTIAZEM HCL INJ 25 MG/5 ML VIAL ONE (16:18)
[2017-04-30] MEDS ORDERED: DILTIAZEM HCL INJ 25 MG/5 ML VIAL IV ONE (17:00)
[2017-04-30] MEDS ORDERED: DIGOXIN INJ 0.5 MG/2 ML AMPULE ONE (17:01)
[2017-04-30] MEDS: ASPIRIN 81 MG TABLET, CHEWABLE PO SCH (17:44)
[2017-04-30] MEDS: MONTELUKAST SODIUM 10 MG TABLET PO SCH (21:33)
[2017-04-30] MEDS: FAMOTIDINE 20 MG TABLET PO SCH (21:33)
[2017-04-30] MEDS: CLONAZEPAM 1 MG TABLET PO SCH (21:34)
[2017-04-30] MEDS: MEMANTINE HCL 10 MG TABLET PO SCH (21:34)
[2017-05-01] MEDS: IPRATROPIUM/ALBUTEROL 0.5-2.5 MG/3 ML AMPUL NEB SCH ×4 (02:03→19:43)
--- NOTE | 2017-05-01 03:53 | EKG REPORT ---
SEVERITY:- ABNORMAL ECG - ATRIAL FIBRILLATION : Confirmed by: Ashley Henson MD 01-May-2017 03:53:37
[2017-05-01] MEDS: CARBIDOPA/LEVODOPA 25-100 MG TABLET PO SCH ×3 (05:14→22:21)
[2017-05-01] MEDS: PIPERACILLIN SODIUM/TAZOBACTAM 3.375 GM in NORMAL SALINE 100 ML IV SCH ×4 (05:18→23:51)
[2017-05-01 06:54] LABS: HEMATOCRIT 35.5 % (37.9-51.0); HEMOGLOBIN 12.2 g/dL (13.5-17.0); HGB HCT DIFFERENCE 1.1; MEAN CORPUSCULAR HEMOGLOBIN 31.7 pg (27.0-33.4); MEAN CORPUSCULAR HGB CONC 34.3 g/dL (32.0-36.0); MEAN CORPUSCULAR VOLUME 92 fl (80-97); RED BLOOD COUNT 3.84 10^6/uL (4.35-5.55); RED CELL DISTRIBUTION WIDTH 14.5 % (11.5-14.0); WHITE BLOOD COUNT 9.3 10^3/uL (4.0-10.5)
[2017-05-01 06:55] LABS: ABSOLUTE BASOPHILS # (AUTO) 0.1 10^3/uL (0.0-0.2); ABSOLUTE EOSINOPHILS # (AUTO) 0.1 10^3/uL (0.0-0.6); ABSOLUTE LYMPHOCYTES (AUTO) 0.7 10^3/uL (0.5-4.7); ABSOLUTE MONOCYTES (AUTO) 0.9 10^3/uL (0.1-1.4); ABSOLUTE NEUT (AUTO) 7.5 10^3/uL (1.7-8.2); ANION GAP 9 (5-19); BASOPHILS % (AUTO) 0.9 % (0-2); BLOOD UREA NITROGEN 16 mg/dL (7-20); CALCIUM 8.5 mg/dL (8.4-10.2); CARBON DIOXIDE 22 mmol/L (22-30); CHLORIDE 108 mmol/L (98-107); CREATININE RESULT 0.73 mg/dL (0.52-1.25); GLUCOSE 148 mg/dL (75-110); LYMPHOCYTES % (AUTO) 7.5 % (13-45); MONOCYTES % (AUTO) 10.1 % (3-13); SEGMENTED NEUTROPHILS % (AUTO) 80.5 % (42-78)
--- NOTE | 2017-05-01 09:44 | PDOC PROGRESS REPORT ---
Subjective Progress Note for:: 05/01/17 Subjective:: Patient is more awake today. He is alert and oriented 3. His atrial ablation is resolved and his diltiazem drip will be DC'd today. He is to go down for thoracentesis later today. Physical Exam Vital Signs: Temp Pulse Resp BP Pulse Ox 99.5 F 94 20 108/58 L 97 05/01/17 08:00 05/01/17 08:10 05/01/17 08:10 05/01/17 08:00 05/01/17 08:10 Intake & Output 04/30/17 05/01/17 05/02/17 06:59 06:59 06:59 Intake Total 2472 1920 Output Total 2150 950 Balance 322 970 Weight 103.4 kg 107.3 kg General appearance: PRESENT: no acute distress Eye exam: PRESENT: conjunctiva pink. ABSENT: scleral icterus Mouth exam: PRESENT: moist, tongue midline Neck exam: ABSENT: JVD Respiratory exam: PRESENT: decreased breath sounds - Decreased breath sounds in the base. ABSENT: rales, rhonchi, wheezes Cardiovascular exam: PRESENT: RRR. ABSENT: diastolic murmur, rubs, systolic murmur GI/Abdominal exam: PRESENT: normal bowel sounds, soft. ABSENT: distended, guarding, mass, organolmegaly, rebound, tenderness Extremities exam: ABSENT: calf tenderness, clubbing, pedal edema Neurological exam: PRESENT: alert, awake, oriented to person, oriented to place , oriented to time, oriented to situation, CN II-XII grossly intact. ABSENT: motor sensory deficit Psychiatric exam: PRESENT: appropriate affect Skin exam: PRESENT: dry, intact, warm. ABSENT: cyanosis, rash Results Laboratory Results: 05/01/17 06:23 05/01/17 06:23 04/30/17 05/01/17 05/01/17 10:43 06:23 06:23 WBC 9.3 RBC 3.84 L Hgb 12.2 L Hct 35.5 L MCV 92 MCH 31.7 MCHC 34.3 RDW 14.5 H Plt Count 173 Seg Neutrophils % 80.5 H Lymphocytes % 7.5 L Monocytes % 10.1 Eosinophils % 1.0 Basophils % 0.9 Absolute Neutrophils 7.5 Absolute Lymphocytes 0.7 Absolute Monocytes 0.9 Absolute Eosinophils 0.1 Absolute Basophils 0.1 Carbonic Acid 0.93 L HCO3/H2CO3 Ratio 25:1 ABG pH 7.49 H ABG pCO2 31.0 L ABG pO2 84.1 ABG HCO3 23.3 ABG O2 Saturation 97.1 ABG Base Excess 0.7 FiO2 2.5L Sodium 139.0 Potassium 4.0 Chloride 108 H Carbon Dioxide 22 Anion Gap 9 BUN 16 Creatinine 0.73 Est GFR ( Amer) > 60 Est GFR (Non-Af Amer) > 60 Glucose 148 H Calcium 8.5 04/26/17 04/30/17 04/30/17 17:42 01:26 01:26 Creatine Kinase 141 CK-MB (CK-2) 0.75 Troponin I < 0.012 < 0.012 04/30/17 04/30/17 04/30/17 07:26 07:26 13:45 Creatine Kinase 284 H 871 H CK-MB (CK-2) 3.77 Troponin I 0.017 04/30/17 13:45 Creatine Kinase CK-MB (CK-2) 8.30 H Troponin I 0.016 Impressions: Abdomen/Pelvis CT 04/26/17 12:45 IMPRESSION: Multiple air and fluid distended large and small bowel loops are identified as noted above most consistent with an ileus pattern although the possibility of an underlying obstruction cannot be excluded. Clinical correlation is recommended. Other findings as noted above KUB X-Ray 04/27/17 00:00 IMPRESSION: NG tube appears adequate. L stable. Modified Barium Swallow 04/29/17 00:00 IMPRESSION: LARYNGEAL PENETRATION WITH PROBABLE TRACE ASPIRATION WITH THIN AND HONEY THICK CONSISTENCIES.PLEASE SEE SPEECH PATHOLOGIST REPORT FOR OTHER FINDINGS AND RECOMMENDATIONS. Chest X-Ray 04/30/17 00:00 IMPRESSION: Interval worsening includes moderate opacity -effusion of the left lower hemithorax. Assessment & Plan - Diagnosis (1) Sepsis Qualifiers: Sepsis type: sepsis due to unspecified organism Qualified Code(s): A41.9 - Sepsis, unspecified organism Is this a current diagnosis for this admission?: Yes Plan: Most likely secondary to infectious colitis. The patient may have aspirated. He does have a pleural effusion and some coarse rhonchi bilaterally. Will continue with antibiotics of Zosyn. Will ask radiology to do thoracentesis. (2) Infectious colitis Is this a current diagnosis for this admission?: Yes Plan: Antibiotics have been changed to IV because of pulmonary issues. From an infectious colitis standpoint he appears to be continued to show improvement. (3) Atrial fibrillation with rapid ventricular response Is this a current diagnosis for this admission?: Yes Plan: He is back in a normal sinus rhythm today and we will DC the Cardizem drip. (4) Dementia Qualifiers: Dementia type: Parkinson's disease Dementia behavioral disturbance: without behavioral disturbance Qualified Code(s): G20 - Parkinson's disease; F02.80 - Dementia in other diseases classified elsewhere without behavioral disturbance Is this a current diagnosis for this admission?: Yes Plan: Stable (5) Essential hypertension Is this a current diagnosis for this admission?: Yes Plan: Blood pressure is under good control. (6) GERD (gastroesophageal reflux disease) Qualifiers: Esophagitis presence: without esophagitis Qualified Code(s): K21.9 - Gastro -esophageal reflux disease without esophagitis Is this a current diagnosis for this admission?: Yes Plan: Speech therapy has recommended honey thick liquids and pured diet. (7) Ileus, unspecified Is this a current diagnosis for this admission?: Yes Plan: Resolved. (8) Peripheral vascular disease Is this a current diagnosis for this admission?: Yes (9) Wegeners granulomatosis Is this a current diagnosis for this admission?: Yes (10) COPD exacerbation Is this a current diagnosis for this admission?: Yes Plan: No wheezing on exam today. Continue with nebulizers as needed. (11) Celiac disease Is this a current diagnosis for this admission?: Yes (12) Diabetes mellitus type 2 in nonobese Is this a current diagnosis for this admission?: Yes Plan: Blood sugars are under good control. (13) History of pulmonary embolus (PE) Is this a current diagnosis for this admission?: Yes (14) Parkinsons disease Is this a current diagnosis for this admission?: Yes Plan: Continue with Sinemet. - Time Time Spent with patient: 25-34 minutes - Inpatient Certification Medical Necessity: Need for IV Antibiotics
[2017-05-01] MEDS: MIRTAZAPINE 15 MG TABLET PO SCH (10:26)
[2017-05-01] MEDS: LISINOPRIL 5 MG TABLET PO SCH (10:27)
[2017-05-01] MEDS: FAMOTIDINE 20 MG TABLET PO SCH ×2 (10:28→22:22)
[2017-05-01] MEDS: MAGNESIUM OXIDE 400 MG TABLET PO SCH ×3 (10:29→18:33)
[2017-05-01] MEDS: TAMSULOSIN HCL 0.4 MG CAP.SR.24H PO SCH (10:29)
[2017-05-01] MEDS: DIGOXIN 0.125 MG TABLET PO SCH (10:29)
--- NOTE | 2017-05-01 10:44 | RADIOLOGY REPORT (SQ) ---
EXAM DESCRIPTION: CHEST SINGLE VIEW COMPLETED DATE/TIME: 05/01/2017 9:53 am REASON FOR STUDY: S/P LT THORACENTESIS COMPARISON: CT angio chest 03/31/2017 Two-view chest 03/31/2017, 04/30/2017 Thoracentesis 05/01/2017 EXAM PARAMETERS: NUMBER OF VIEWS: One view. TECHNIQUE: Single frontal radiographic view of the chest acquired. RADIATION DOSE: NA LIMITATIONS: None. FINDINGS: LUNGS AND PLEURA: Immediately post left thoracentesis, with removal of 300 mL of fluid fro m the left hemithorax. No left pneumothorax. There are air bronchograms in the left retrocardiac region from atelectasis or pneumonia. Minimal bandlike right basilar atelectasis. No right pleural effusion. No right pneumothorax. MEDIASTINUM AND HILAR STRUCTURES: No masses. Contour normal. HEART AND VASCULAR STRUCTURES: Stable mild cardiomegaly BONES: No acute findings. HARDWARE: None in the chest. OTHER: No other significant finding. IMPRESSION: Post left thoracentesis. No pneumothorax. Persistent airspace disease at the lung bases left greater than right. TECHNICAL DOCUMENTATION: JOB ID: [id number]
--- NOTE | 2017-05-01 10:51 | RADIOLOGY REPORT (SQ) ---
EXAM DESCRIPTION: U/S THORACENTESIS WITH IMAGING COMPLETED DATE/TIME: 05/01/2017 10:05 am REASON FOR STUDY: PLEURAL EFFUSION COMPARISON: AP chest 04/30/2017 LIMITATIONS: None. PROCEDURE: Procedure, risks, benefit, and alternative explained to patient who then gave written con sent. The posterolateral left chest wall was marked using ultrasound guidance. A time-out was call ed for correct marking verification. Chest prepped and draped using sterile technique. Local anesthe júnior achieved using 5.5 ml of 1% lidocaine injection. A 6fr Safe-T- Centesis set was introduced into the left pleural space. Fluid was aspirated. The catheter was removed and the entry site was covere d with sterile bandage. No immediate complications noted. Fluid was sent for testing Images acquired during the procedure were stored on PACS. FINDINGS: ENTRY SITE: Posterolateral left chest FLUID VOLUME: 300 mL cloudy straw-colored fluid FLUID ANALYSIS: Yes, sent for testing OTHER: Post procedure chest x-ray dictated separately demonstrates no left pneumothorax IMPRESSION: SUCCESSFUL THORACENTESIS USING ULTRASOUND GUIDANCE. COMMENT: Patient medication list reviewed: Yes- Quality ID# [id number]:Eligible professional attests to doc umenting in the medical record they obtained, updated, or reviewed the patient's current medications. Quality ID #[id number]: Final reports for procedures using fluoroscopy that document radiation exposure pérez wilda, or exposure time and number of fluorographic images (if radiation exposure indices are not avail able) TECHNICAL DOCUMENTATION: JOB ID: [id number] [employer]- All Rights Reserved
[2017-05-01 11:15] LABS: FLUID APPEARANCE CLOUDY; FLUID RBC AVERAGE 120.5; FLUID RBC DILUENT USED SALINE; FLUID RBC DILUTION FACTOR 21; FLUID RBC SIDE 1 127; FLUID RBC SIDE 2 114; FLUID TYPE PLEURAL; TOTAL RBC SQUARES COUNTED FLD 225
--- NOTE | 2017-05-01 12:15 | RADIOLOGY REPORT (SQ) ---
EXAM DESCRIPTION: CHEST SINGLE VIEW COMPLETED DATE/TIME: 05/01/2017 11:58 am REASON FOR STUDY: 2 HOURS S/P LT THORACENTESIS COMPARISON: 05/01/2017 EXAM PARAMETERS: NUMBER OF VIEWS: One view. TECHNIQUE: Single frontal radiographic view of the chest acquired. RADIATION DOSE: NA LIMITATIONS: None. FINDINGS: LUNGS AND PLEURA: There is some fluid in the left hemithorax. There is increased opacific ation in the lung bases. No pneumothorax is seen MEDIASTINUM AND HILAR STRUCTURES: No masses. Contour normal. HEART AND VASCULAR STRUCTURES: Heart normal in size. Normal vasculature. BONES: No acute findings. HARDWARE: None in the chest. OTHER: No other significant finding. IMPRESSION: No pneumothorax. Persistent airspace disease in the lung bases, left more than right. Small left pleural effusion. TECHNICAL DOCUMENTATION: JOB ID: [id number]
[2017-05-01] MEDS: ACETAMINOPHEN 325 MG TABLET PO PRN (16:37)
[2017-05-01] MEDS: ASPIRIN 81 MG TABLET, CHEWABLE PO SCH (18:33)
[2017-05-01] MEDS: MEMANTINE HCL 10 MG TABLET PO SCH (22:21)
[2017-05-01] MEDS: MONTELUKAST SODIUM 10 MG TABLET PO SCH (22:21)
[2017-05-01] MEDS: CLONAZEPAM 1 MG TABLET PO SCH (23:52)
[2017-05-02] MEDS: IPRATROPIUM/ALBUTEROL 0.5-2.5 MG/3 ML AMPUL NEB SCH ×4 (01:59→19:49)
[2017-05-02 05:04] LABS: ANION GAP 7 (5-19); BLOOD UREA NITROGEN 16 mg/dL (7-20); CALCIUM 8.6 mg/dL (8.4-10.2); CARBON DIOXIDE 23 mmol/L (22-30); CHLORIDE 106 mmol/L (98-107); CREATININE RESULT 0.66 mg/dL (0.52-1.25); GLUCOSE 128 mg/dL (75-110); POTASSIUM 4.2 mmol/L (3.6-5.0); SODIUM 136.1 mmol/L (137-145)
[2017-05-02 05:05] LABS: ABSOLUTE BASOPHILS # (AUTO) 0.1 10^3/uL (0.0-0.2); ABSOLUTE EOSINOPHILS # (AUTO) 0.2 10^3/uL (0.0-0.6); ABSOLUTE NEUT (AUTO) 5.8 10^3/uL (1.7-8.2); BASOPHILS % (AUTO) 1.2 % (0-2); HEMATOCRIT 34.7 % (37.9-51.0); HGB HCT DIFFERENCE 1.3; LYMPHOCYTES % (AUTO) 12.2 % (13-45); MEAN CORPUSCULAR HEMOGLOBIN 31.8 pg (27.0-33.4); MEAN CORPUSCULAR HGB CONC 34.6 g/dL (32.0-36.0); MEAN CORPUSCULAR VOLUME 92 fl (80-97); MONOCYTES % (AUTO) 12.3 % (3-13); RED BLOOD COUNT 3.77 10^6/uL (4.35-5.55); SEGMENTED NEUTROPHILS % (AUTO) 72.3 % (42-78)
[2017-05-02] MEDS: PIPERACILLIN SODIUM/TAZOBACTAM 3.375 GM in NORMAL SALINE 100 ML IV SCH ×4 (05:19→05:30)
[2017-05-02] MEDS: CARBIDOPA/LEVODOPA 25-100 MG TABLET PO SCH ×3 (05:32→23:30)
[2017-05-02] MEDS: ACETAMINOPHEN 325 MG TABLET PO PRN (07:26)
--- NOTE | 2017-05-02 10:49 | PDOC PROGRESS REPORT ---
Subjective Progress Note for:: 05/02/17 Subjective:: Denies any complaints. Physical Exam Vital Signs: Temp Pulse Resp BP Pulse Ox 98.7 F 78 24 H 104/85 95 05/02/17 08:00 05/02/17 08:28 05/02/17 08:28 05/02/17 08:00 05/02/17 08:28 Intake & Output 05/01/17 05/02/17 05/03/17 06:59 06:59 06:59 Intake Total 1920 3143 Output Total 950 1275 Balance 970 1868 Weight 107.3 kg 108.7 kg General appearance: PRESENT: no acute distress Eye exam: PRESENT: conjunctiva pink. ABSENT: scleral icterus Mouth exam: PRESENT: moist, tongue midline Neck exam: ABSENT: JVD Respiratory exam: PRESENT: rales - Left basilar. ABSENT: rhonchi, wheezes Cardiovascular exam: PRESENT: irregular rhythm. ABSENT: systolic murmur, tachycardia GI/Abdominal exam: PRESENT: normal bowel sounds, soft. ABSENT: distended, guarding, mass, organolmegaly, rebound, tenderness Extremities exam: ABSENT: calf tenderness, clubbing, pedal edema Neurological exam: PRESENT: alert, awake, oriented to person, oriented to place , oriented to time, oriented to situation, CN II-XII grossly intact. ABSENT: motor sensory deficit Psychiatric exam: PRESENT: flat affect Skin exam: PRESENT: dry, intact, warm. ABSENT: cyanosis, rash Results Laboratory Results: 05/02/17 04:14 05/02/17 04:14 05/01/17 05/02/17 05/02/17 09:30 04:14 04:14 WBC 8.0 RBC 3.77 L Hgb 12.0 L Hct 34.7 L MCV 92 MCH 31.8 MCHC 34.6 RDW 14.0 Plt Count 195 Seg Neutrophils % 72.3 Lymphocytes % 12.2 L Monocytes % 12.3 Eosinophils % 2.0 Basophils % 1.2 Absolute Neutrophils 5.8 Absolute Lymphocytes 1.0 Absolute Monocytes 1.0 Absolute Eosinophils 0.2 Absolute Basophils 0.1 Sodium 136.1 L Potassium 4.2 Chloride 106 Carbon Dioxide 23 Anion Gap 7 BUN 16 Creatinine 0.66 Est GFR ( Amer) > 60 Est GFR (Non-Af Amer) > 60 Glucose 128 H Calcium 8.6 Fluid Type PLEURAL Fluid Source LUNG Fluid Color YELLOW Fluid Appearance CLOUDY Fluid Viscosity LIQUID Fluid WBC 18742 Fluid RBC 2811 04/27/17 04:37 Blood Blood Culture - Final NO GROWTH IN 5 DAYS 04/27/17 00:22 Blood Blood Culture - Final NO GROWTH IN 5 DAYS 04/26/17 04/30/17 04/30/17 17:42 01:26 01:26 Creatine Kinase 141 CK-MB (CK-2) 0.75 Troponin I < 0.012 < 0.012 04/30/17 04/30/17 04/30/17 07:26 07:26 13:45 Creatine Kinase 284 H 871 H CK-MB (CK-2) 3.77 Troponin I 0.017 04/30/17 13:45 Creatine Kinase CK-MB (CK-2) 8.30 H Troponin I 0.016 Impressions: Abdomen/Pelvis CT 04/26/17 12:45 IMPRESSION: Multiple air and fluid distended large and small bowel loops are identified as noted above most consistent with an ileus pattern although the possibility of an underlying obstruction cannot be excluded. Clinical correlation is recommended. Other findings as noted above KUB X-Ray 04/27/17 00:00 IMPRESSION: NG tube appears adequate. L stable. Modified Barium Swallow 04/29/17 00:00 IMPRESSION: LARYNGEAL PENETRATION WITH PROBABLE TRACE ASPIRATION WITH THIN AND HONEY THICK CONSISTENCIES.PLEASE SEE SPEECH PATHOLOGIST REPORT FOR OTHER FINDINGS AND RECOMMENDATIONS. Chest X-Ray 05/01/17 00:00 IMPRESSION: No pneumothorax. Persistent airspace disease in the lung bases, left more than right. Small left pleural effusion. Thoracentesis Ultrasound 05/01/17 00:00 IMPRESSION: SUCCESSFUL THORACENTESIS USING ULTRASOUND GUIDANCE. Assessment & Plan - Diagnosis (1) Sepsis Qualifiers: Sepsis type: sepsis due to unspecified organism Qualified Code(s): A41.9 - Sepsis, unspecified organism Is this a current diagnosis for this admission?: Yes Plan: Most likely secondary to infectious colitis. The patient may have aspiration pneumonia also. He does have a pleural effusion and some coarse rhonchi bilaterally. Will continue with antibiotics of Zosyn. Will ask radiology to do thoracentesis. (2) LLL pneumonia Qualifiers: Pneumonia type: due to unspecified organism Qualified Code(s): J18.1 - Lobar pneumonia, unspecified organism Is this a current diagnosis for this admission?: Yes Plan: Most likely secondary to aspiration. Continue with Zosyn. (3) Infectious colitis Is this a current diagnosis for this admission?: Yes Plan: Antibiotics have been changed to IV because of pulmonary issues. From an infectious colitis standpoint he appears to be continued to show improvement. (4) Atrial fibrillation with rapid ventricular response Is this a current diagnosis for this admission?: Yes Plan: He is back in atrial fibrillation but is rate controlled. (5) Dementia Qualifiers: Dementia type: Parkinson's disease Dementia behavioral disturbance: without behavioral disturbance Qualified Code(s): G20 - Parkinson's disease; F02.80 - Dementia in other diseases classified elsewhere without behavioral disturbance Is this a current diagnosis for this admission?: Yes Plan: Stable (6) Essential hypertension Is this a current diagnosis for this admission?: Yes Plan: Blood pressure is under good control. (7) GERD (gastroesophageal reflux disease) Qualifiers: Esophagitis presence: without esophagitis Qualified Code(s): K21.9 - Gastro -esophageal reflux disease without esophagitis Is this a current diagnosis for this admission?: Yes Plan: Speech therapy has recommended honey thick liquids and pured diet. (8) Ileus, unspecified Is this a current diagnosis for this admission?: Yes Plan: Resolved. (9) Peripheral vascular disease Is this a current diagnosis for this admission?: Yes (10) Wegeners granulomatosis Is this a current diagnosis for this admission?: Yes (11) COPD exacerbation Is this a current diagnosis for this admission?: Yes Plan: No wheezing on exam today. Continue with nebulizers as needed. (12) Celiac disease Is this a current diagnosis for this admission?: Yes (13) Diabetes mellitus type 2 in nonobese Is this a current diagnosis for this admission?: Yes Plan: Blood sugars are under good control. (14) History of pulmonary embolus (PE) Is this a current diagnosis for this admission?: Yes (15) Parkinsons disease Is this a current diagnosis for this admission?: Yes Plan: Continue with Sinemet. - Time Time Spent with patient: 25-34 minutes - Inpatient Certification Medical Necessity: Need Close Monitoring Due to Risk of Patient Decompensation, Need for IV Antibiotics
[2017-05-02] MEDS: ENOXAPARIN SODIUM INJ 40 MG/0.4 ML DISP.SYRIN SUBCUT SCH (11:56)
[2017-05-02] MEDS: DIGOXIN 0.125 MG TABLET PO SCH (11:56)
[2017-05-02] MEDS: FAMOTIDINE 20 MG TABLET PO SCH ×2 (11:56→23:31)
[2017-05-02] MEDS: MAGNESIUM OXIDE 400 MG TABLET PO SCH ×3 (11:56→17:44)
[2017-05-02] MEDS: TAMSULOSIN HCL 0.4 MG CAP.SR.24H PO SCH (11:56)
[2017-05-02] MEDS: MIRTAZAPINE 15 MG TABLET PO SCH (11:56)
[2017-05-02] MEDS: HYDROCODONE/ACETAMINOPHEN 5-325 MG TABLET PO PRN (13:44)
[2017-05-02] MEDS: ASPIRIN 81 MG TABLET, CHEWABLE PO SCH (17:44)
[2017-05-02] MEDS: CLONAZEPAM 1 MG TABLET PO SCH (23:28)
[2017-05-02] MEDS: MEMANTINE HCL 10 MG TABLET PO SCH (23:29)
[2017-05-02] MEDS: MONTELUKAST SODIUM 10 MG TABLET PO SCH (23:32)
[2017-05-03] MEDS: IPRATROPIUM/ALBUTEROL 0.5-2.5 MG/3 ML AMPUL NEB SCH ×4 (02:18→20:08)
[2017-05-03] MEDS: HYDROCODONE/ACETAMINOPHEN 5-325 MG TABLET PO PRN ×2 (03:12→21:32)
[2017-05-03 04:48] LABS: ABSOLUTE BASOPHILS # (AUTO) 0.1 10^3/uL (0.0-0.2); ABSOLUTE EOSINOPHILS # (AUTO) 0.2 10^3/uL (0.0-0.6); ABSOLUTE MONOCYTES (AUTO) 0.8 10^3/uL (0.1-1.4); ABSOLUTE NEUT (AUTO) 6.3 10^3/uL (1.7-8.2); BASOPHILS % (AUTO) 0.9 % (0-2); EOSINOPHILS % (AUTO) 2.1 % (0-6); HEMATOCRIT 34.9 % (37.9-51.0); HEMOGLOBIN 11.9 g/dL (13.5-17.0); HGB HCT DIFFERENCE 0.8; MEAN CORPUSCULAR HEMOGLOBIN 31.3 pg (27.0-33.4); MEAN CORPUSCULAR VOLUME 92 fl (80-97); MONOCYTES % (AUTO) 9.3 % (3-13); RED BLOOD COUNT 3.79 10^6/uL (4.35-5.55); RED CELL DISTRIBUTION WIDTH 14.2 % (11.5-14.0); SEGMENTED NEUTROPHILS % (AUTO) 75.7 % (42-78); WHITE BLOOD COUNT 8.3 10^3/uL (4.0-10.5)
[2017-05-03 05:08] LABS: ANION GAP 9 (5-19); BLOOD UREA NITROGEN 14 mg/dL (7-20); CALCIUM 8.5 mg/dL (8.4-10.2); CARBON DIOXIDE 21 mmol/L (22-30); CHLORIDE 103 mmol/L (98-107); GLUCOSE 128 mg/dL (75-110); POTASSIUM 4.3 mmol/L (3.6-5.0); SODIUM 132.5 mmol/L (137-145)
[2017-05-03] MEDS: PIPERACILLIN SODIUM/TAZOBACTAM 3.375 GM in NORMAL SALINE 100 ML IV SCH ×5 (06:07→17:35)
--- NOTE | 2017-05-03 10:07 | PDOC PROGRESS REPORT ---
Subjective Progress Note for:: 05/03/17 Subjective:: Complains of left-sided pleuritic chest pain. Physical Exam Vital Signs: Temp Pulse Resp BP Pulse Ox 98.9 F 69 20 134/75 H 95 05/03/17 07:48 05/03/17 07:56 05/03/17 07:56 05/03/17 07:48 05/03/17 07:56 Intake & Output 05/02/17 05/03/17 05/04/17 06:59 06:59 06:59 Intake Total 3143 1801 Output Total 1275 2350 Balance 1868 -549 Weight 108.7 kg 105.2 kg General appearance: PRESENT: no acute distress Eye exam: PRESENT: conjunctiva pink. ABSENT: scleral icterus Mouth exam: PRESENT: moist, tongue midline Neck exam: ABSENT: JVD Respiratory exam: PRESENT: decreased breath sounds - Decreased breath sounds in the left base., rhonchi - Scattered rhonchi. ABSENT: rales, wheezes Cardiovascular exam: PRESENT: irregular rhythm. ABSENT: diastolic murmur, rubs , systolic murmur GI/Abdominal exam: PRESENT: normal bowel sounds, soft. ABSENT: distended, guarding, mass, organolmegaly, rebound, tenderness Extremities exam: PRESENT: other - Patient has some mild swelling of the right forearm.. ABSENT: calf tenderness, clubbing, pedal edema Neurological exam: PRESENT: alert, awake, oriented to person, oriented to place , oriented to time, oriented to situation, CN II-XII grossly intact. ABSENT: motor sensory deficit Psychiatric exam: PRESENT: flat affect Skin exam: PRESENT: dry, intact, warm. ABSENT: cyanosis, rash Results Laboratory Results: 05/03/17 04:11 05/03/17 04:11 05/01/17 05/03/17 05/03/17 09:30 04:11 04:11 WBC 8.3 RBC 3.79 L Hgb 11.9 L Hct 34.9 L MCV 92 MCH 31.3 MCHC 34.0 RDW 14.2 H Plt Count 217 Seg Neutrophils % 75.7 Lymphocytes % 12.0 L Monocytes % 9.3 Eosinophils % 2.1 Basophils % 0.9 Absolute Neutrophils 6.3 Absolute Lymphocytes 1.0 Absolute Monocytes 0.8 Absolute Eosinophils 0.2 Absolute Basophils 0.1 Sodium 132.5 L Potassium 4.3 Chloride 103 Carbon Dioxide 21 L Anion Gap 9 BUN 14 Creatinine 0.60 Est GFR ( Amer) > 60 Est GFR (Non-Af Amer) > 60 Glucose 128 H Calcium 8.5 Fluid Glucose 108 Fluid Total Protein 2.3 Fluid LDH 414 05/01/17 09:30 Pleural Fluid - Not Specified AFB Smear Concentration - Final 05/01/17 09:30 Pleural Fluid - Not Specified Acid Fast Bacilli Smear - Final 04/26/17 04/30/17 04/30/17 17:42 01:26 01:26 Creatine Kinase 141 CK-MB (CK-2) 0.75 Troponin I < 0.012 < 0.012 04/30/17 04/30/17 04/30/17 07:26 07:26 13:45 Creatine Kinase 284 H 871 H CK-MB (CK-2) 3.77 Troponin I 0.017 04/30/17 13:45 Creatine Kinase CK-MB (CK-2) 8.30 H Troponin I 0.016 Impressions: Abdomen/Pelvis CT 04/26/17 12:45 IMPRESSION: Multiple air and fluid distended large and small bowel loops are identified as noted above most consistent with an ileus pattern although the possibility of an underlying obstruction cannot be excluded. Clinical correlation is recommended. Other findings as noted above KUB X-Ray 04/27/17 00:00 IMPRESSION: NG tube appears adequate. L stable. Modified Barium Swallow 04/29/17 00:00 IMPRESSION: LARYNGEAL PENETRATION WITH PROBABLE TRACE ASPIRATION WITH THIN AND HONEY THICK CONSISTENCIES.PLEASE SEE SPEECH PATHOLOGIST REPORT FOR OTHER FINDINGS AND RECOMMENDATIONS. Thoracentesis Ultrasound 05/01/17 00:00 IMPRESSION: SUCCESSFUL THORACENTESIS USING ULTRASOUND GUIDANCE. Assessment & Plan - Diagnosis (1) Sepsis Qualifiers: Sepsis type: sepsis due to unspecified organism Qualified Code(s): A41.9 - Sepsis, unspecified organism Is this a current diagnosis for this admission?: Yes Plan: Most likely secondary to infectious colitis. The patient may have aspiration pneumonia also. He does have a pleural effusion and some coarse rhonchi bilaterally. Will continue with antibiotics of Zosyn. The patient had a thoracentesis without complications. (2) LLL pneumonia Qualifiers: Pneumonia type: due to unspecified organism Qualified Code(s): J18.1 - Lobar pneumonia, unspecified organism Is this a current diagnosis for this admission?: Yes Plan: Most likely secondary to aspiration. Continue with Zosyn. Patient has some pleuritic chest pain most likely related to the underlying pneumonia. Will check a chest x-ray today to make certain that he does not have a pneumothorax. (3) Infectious colitis Is this a current diagnosis for this admission?: Yes Plan: Antibiotics have been changed to IV because of pulmonary issues. From an infectious colitis standpoint he appears to be continued to show improvement. (4) Atrial fibrillation with rapid ventricular response Is this a current diagnosis for this admission?: Yes Plan: He is back in atrial fibrillation but is rate controlled. (5) Dementia Qualifiers: Dementia type: Parkinson's disease Dementia behavioral disturbance: without behavioral disturbance Qualified Code(s): G20 - Parkinson's disease; F02.80 - Dementia in other diseases classified elsewhere without behavioral disturbance Is this a current diagnosis for this admission?: Yes Plan: Stable (6) Essential hypertension Is this a current diagnosis for this admission?: Yes Plan: Blood pressure is under good control. (7) GERD (gastroesophageal reflux disease) Qualifiers: Esophagitis presence: without esophagitis Qualified Code(s): K21.9 - Gastro -esophageal reflux disease without esophagitis Is this a current diagnosis for this admission?: Yes Plan: Speech therapy has recommended honey thick liquids and pured diet. (8) Ileus, unspecified Is this a current diagnosis for this admission?: Yes Plan: Resolved. (9) Peripheral vascular disease Is this a current diagnosis for this admission?: Yes (10) Wegeners granulomatosis Is this a current diagnosis for this admission?: Yes (11) COPD exacerbation Is this a current diagnosis for this admission?: Yes Plan: No wheezing on exam today. Continue with nebulizers as needed. (12) Celiac disease Is this a current diagnosis for this admission?: Yes (13) Diabetes mellitus type 2 in nonobese Is this a current diagnosis for this admission?: Yes Plan: Blood sugars are under good control. (14) History of pulmonary embolus (PE) Is this a current diagnosis for this admission?: Yes (15) Parkinsons disease Is this a current diagnosis for this admission?: Yes Plan: Continue with Sinemet. - Time Time Spent with patient: 25-34 minutes - Inpatient Certification Medical Necessity: Need Close Monitoring Due to Risk of Patient Decompensation, Need for IV Antibiotics
--- NOTE | 2017-05-03 10:17 | RADIOLOGY REPORT (SQ) ---
EXAM DESCRIPTION: CHEST PA/LAT COMPLETED DATE/TIME: 05/03/2017 9:50 am REASON FOR STUDY: left chest pain COMPARISON: 03/31/2017 NUMBER OF VIEWS: Two view TECHNIQUE: Frontal and lateral radiographic images of the chest acquired. LIMITATIONS: Positioning. FINDINGS: LUNGS AND PLEURA: Increasing left pleural effusion and associated airspace disease. Small er right pleural effusion. MEDIASTINUM AND HILAR STRUCTURES: Stable heart size and mediastinal structures. HEART AND VASCULAR STRUCTURES: Stable appearance. BONES: No acute findings. HARDWARE: None in the chest. OTHER: No other significant finding. IMPRESSION: Increasing pleural effusions. TECHNICAL DOCUMENTATION: JOB ID: [id number] [email or web address]- All Rights Reserved
[2017-05-03] MEDS: ENOXAPARIN SODIUM INJ 40 MG/0.4 ML DISP.SYRIN SUBCUT SCH (12:54)
[2017-05-03] MEDS: MIRTAZAPINE 15 MG TABLET PO SCH (12:54)
[2017-05-03] MEDS: FAMOTIDINE 20 MG TABLET PO SCH ×2 (12:55→21:34)
[2017-05-03] MEDS: TAMSULOSIN HCL 0.4 MG CAP.SR.24H PO SCH (12:57)
[2017-05-03] MEDS: CARBIDOPA/LEVODOPA 25-100 MG TABLET PO SCH ×2 (13:14→21:32)
[2017-05-03] MEDS: DIGOXIN 0.125 MG TABLET PO SCH (13:14)
[2017-05-03] MEDS: MAGNESIUM OXIDE 400 MG TABLET PO SCH ×2 (13:14→17:34)
[2017-05-03] MEDS: ASPIRIN 81 MG TABLET, CHEWABLE PO SCH (17:34)
[2017-05-03] MEDS: MONTELUKAST SODIUM 10 MG TABLET PO SCH (21:31)
[2017-05-03] MEDS: MEMANTINE HCL 10 MG TABLET PO SCH (21:33)
[2017-05-03] MEDS: CLONAZEPAM 1 MG TABLET PO SCH (21:34)
[2017-05-04] MEDS: IPRATROPIUM/ALBUTEROL 0.5-2.5 MG/3 ML AMPUL NEB SCH ×4 (02:06→19:59)
[2017-05-04] MEDS: ACETAMINOPHEN 325 MG TABLET PO PRN ×2 (04:26→18:02)
[2017-05-04 05:04] LABS: ABSOLUTE BASOPHILS # (AUTO) 0.1 10^3/uL (0.0-0.2); ABSOLUTE EOSINOPHILS # (AUTO) 0.1 10^3/uL (0.0-0.6); ABSOLUTE LYMPHOCYTES (AUTO) 1.2 10^3/uL (0.5-4.7); ABSOLUTE NEUT (AUTO) 8.1 10^3/uL (1.7-8.2); BASOPHILS % (AUTO) 1.1 % (0-2); EOSINOPHILS % (AUTO) 1.2 % (0-6); HEMATOCRIT 37.9 % (37.9-51.0); HEMOGLOBIN 12.8 g/dL (13.5-17.0); HGB HCT DIFFERENCE 0.5; LYMPHOCYTES % (AUTO) 11.4 % (13-45); MEAN CORPUSCULAR HEMOGLOBIN 31.1 pg (27.0-33.4); MEAN CORPUSCULAR HGB CONC 33.9 g/dL (32.0-36.0); MEAN CORPUSCULAR VOLUME 92 fl (80-97); RED BLOOD COUNT 4.13 10^6/uL (4.35-5.55); RED CELL DISTRIBUTION WIDTH 14.6 % (11.5-14.0); SEGMENTED NEUTROPHILS % (AUTO) 77.3 % (42-78); WHITE BLOOD COUNT 10.5 10^3/uL (4.0-10.5)
[2017-05-04 05:41] LABS: ANION GAP 10 (5-19); BLOOD UREA NITROGEN 15 mg/dL (7-20); CALCIUM 8.8 mg/dL (8.4-10.2); CARBON DIOXIDE 23 mmol/L (22-30); CHLORIDE 103 mmol/L (98-107); CREATININE RESULT 0.71 mg/dL (0.52-1.25); GLUCOSE 122 mg/dL (75-110); POTASSIUM 4.7 mmol/L (3.6-5.0); SODIUM 135.8 mmol/L (137-145)
[2017-05-04] MEDS: CARBIDOPA/LEVODOPA 25-100 MG TABLET PO SCH ×3 (06:13→21:48)
[2017-05-04] MEDS: PIPERACILLIN SODIUM/TAZOBACTAM 3.375 GM in NORMAL SALINE 100 ML IV SCH ×5 (06:13→17:33)
[2017-05-04] MEDS: DIGOXIN 0.125 MG TABLET PO SCH (10:03)
[2017-05-04] MEDS: TAMSULOSIN HCL 0.4 MG CAP.SR.24H PO SCH (10:03)
[2017-05-04] MEDS: FAMOTIDINE 20 MG TABLET PO SCH ×2 (10:03→21:48)
[2017-05-04] MEDS: MIRTAZAPINE 15 MG TABLET PO SCH (10:03)
[2017-05-04] MEDS: ENOXAPARIN SODIUM INJ 40 MG/0.4 ML DISP.SYRIN SUBCUT SCH (10:04)
[2017-05-04] MEDS: MAGNESIUM OXIDE 400 MG TABLET PO SCH ×3 (10:04→17:34)
--- NOTE | 2017-05-04 12:45 | PDOC PROGRESS REPORT ---
Subjective Progress Note for:: 05/04/17 Subjective:: Complains of left-sided pleuritic chest pain. Physical Exam Vital Signs: Temp Pulse Resp BP Pulse Ox 98.2 F 80 20 125/99 H 92 05/04/17 10:56 05/04/17 10:56 05/04/17 10:56 05/04/17 10:56 05/04/17 10:56 Intake & Output 05/03/17 05/04/17 05/05/17 06:59 06:59 06:59 Intake Total 1801 920 Output Total 2350 3400 Balance -549 -2480 Weight 105.2 kg 105.2 kg General appearance: PRESENT: no acute distress Eye exam: PRESENT: conjunctiva pink. ABSENT: scleral icterus Mouth exam: PRESENT: moist, tongue midline Neck exam: ABSENT: JVD Respiratory exam: PRESENT: decreased breath sounds - Decreased in the left base. ABSENT: rales, rhonchi, wheezes Cardiovascular exam: PRESENT: irregular rhythm. ABSENT: diastolic murmur, rubs , systolic murmur GI/Abdominal exam: PRESENT: normal bowel sounds, soft. ABSENT: distended, guarding, mass, organolmegaly, rebound, tenderness Extremities exam: PRESENT: pedal edema - Trace pedal edema. ABSENT: calf tenderness, clubbing Neurological exam: PRESENT: awake, oriented to person, oriented to place Psychiatric exam: PRESENT: flat affect Skin exam: PRESENT: dry, intact, warm. ABSENT: cyanosis, rash Results Laboratory Results: 05/04/17 04:14 05/04/17 04:14 05/04/17 05/04/17 04:14 04:14 WBC 10.5 RBC 4.13 L Hgb 12.8 L Hct 37.9 MCV 92 MCH 31.1 MCHC 33.9 RDW 14.6 H Plt Count 265 Seg Neutrophils % 77.3 Lymphocytes % 11.4 L Monocytes % 9.0 Eosinophils % 1.2 Basophils % 1.1 Absolute Neutrophils 8.1 Absolute Lymphocytes 1.2 Absolute Monocytes 1.0 Absolute Eosinophils 0.1 Absolute Basophils 0.1 Sodium 135.8 L Potassium 4.7 Chloride 103 Carbon Dioxide 23 Anion Gap 10 BUN 15 Creatinine 0.71 Est GFR ( Amer) > 60 Est GFR (Non-Af Amer) > 60 Glucose 122 H Calcium 8.8 04/26/17 04/30/1704/30/17 17:42 01:26 01:26 Creatine Kinase 141 CK-MB (CK-2) 0.75 Troponin I < 0.012 < 0.012 04/30/17 04/30/17 04/30/17 07:26 07:26 13:45 Creatine Kinase 284 H 871 H CK-MB (CK-2) 3.77 Troponin I 0.017 04/30/17 13:45 Creatine Kinase CK-MB (CK-2) 8.30 H Troponin I 0.016 Impressions: Abdomen/Pelvis CT 04/26/17 12:45 IMPRESSION: Multiple air and fluid distended large and small bowel loops are identified as noted above most consistent with an ileus pattern although the possibility of an underlying obstruction cannot be excluded. Clinical correlation is recommended. Other findings as noted above KUB X-Ray 04/27/17 00:00 IMPRESSION: NG tube appears adequate. L stable. Modified Barium Swallow 04/29/17 00:00 IMPRESSION: LARYNGEAL PENETRATION WITH PROBABLE TRACE ASPIRATION WITH THIN AND HONEY THICK CONSISTENCIES.PLEASE SEE SPEECH PATHOLOGIST REPORT FOR OTHER FINDINGS AND RECOMMENDATIONS. Thoracentesis Ultrasound 05/01/17 00:00 IMPRESSION: SUCCESSFUL THORACENTESIS USING ULTRASOUND GUIDANCE. Chest X-Ray 05/03/17 00:00 IMPRESSION: Increasing pleural effusions. Assessment & Plan - Diagnosis (1) Sepsis Qualifiers: Sepsis type: sepsis due to unspecified organism Qualified Code(s): A41.9 - Sepsis, unspecified organism Is this a current diagnosis for this admission?: Yes Plan: Most likely secondary to infectious colitis. The patient may have aspiration pneumonia also. He does have a pleural effusion and some coarse rhonchi bilaterally. Will continue with antibiotics of Zosyn. The patient had a thoracentesis without complications but has had the effusion. Because of the increased fusion will ask pulmonary medicine for their opinion as to whether this patient needs to have a chest tube or just anti-biotics. (2) LLL pneumonia Qualifiers: Pneumonia type: due to unspecified organism Qualified Code(s): J18.1 - Lobar pneumonia, unspecified organism Is this a current diagnosis for this admission?: Yes Plan: Most likely secondary to aspiration. Continue with Zosyn. Patient has some pleuritic chest pain most likely related to the underlying pneumonia. he has had worsening of the pleural effusion. Will consult pulmonary medicine for their opinion. (3) Infectious colitis Is this a current diagnosis for this admission?: Yes Plan: Antibiotics have been changed to IV because of pulmonary issues. From an infectious colitis standpoint he appears to be continued to show improvement. (4) Atrial fibrillation with rapid ventricular response Is this a current diagnosis for this admission?: Yes Plan: He is back in atrial fibrillation but is rate controlled. (5) Dementia Qualifiers: Dementia type: Parkinson's disease Dementia behavioral disturbance: without behavioral disturbance Qualified Code(s): G20 - Parkinson's disease; F02.80 - Dementia in other diseases classified elsewhere without behavioral disturbance Is this a current diagnosis for this admission?: Yes Plan: Stable (6) Essential hypertension Is this a current diagnosis for this admission?: Yes Plan: Blood pressure is under good control. (7) GERD (gastroesophageal reflux disease) Qualifiers: Esophagitis presence: without esophagitis Qualified Code(s): K21.9 - Gastro -esophageal reflux disease without esophagitis Is this a current diagnosis for this admission?: Yes Plan: Speech therapy has recommended honey thick liquids and pured diet. (8) Ileus, unspecified Is this a current diagnosis for this admission?: Yes Plan: Resolved. (9) Peripheral vascular disease Is this a current diagnosis for this admission?: Yes (10) Wegeners granulomatosis Is this a current diagnosis for this admission?: Yes (11) COPD exacerbation Is this a current diagnosis for this admission?: Yes Plan: No wheezing on exam today. Continue with nebulizers as needed. (12) Celiac disease Is this a current diagnosis for this admission?: Yes (13) Diabetes mellitus type 2 in nonobese Is this a current diagnosis for this admission?: Yes Plan: Blood sugars are under good control. (14) History of pulmonary embolus (PE) Is this a current diagnosis for this admission?: Yes (15) Parkinsons disease Is this a current diagnosis for this admission?: Yes Plan: Continue with Sinemet. He complains of neck pain. His left lateral trapezius is tender to palpate. Will start on Flexeril. - Time Time Spent with patient: 25-34 minutes - Inpatient Certification Medical Necessity: Need for IV Antibiotics
[2017-05-04] MEDS: CYCLOBENZAPRINE HCL 10 MG TABLET PO SCH ×2 (14:53→21:49)
[2017-05-04 16:27] LABS: PATH REVIEW PATHOLOGIST REVIEWED
[2017-05-04] MEDS: ASPIRIN 81 MG TABLET, CHEWABLE PO SCH (17:34)
[2017-05-04] MEDS: CLONAZEPAM 1 MG TABLET PO SCH (21:48)
[2017-05-04] MEDS: MEMANTINE HCL 10 MG TABLET PO SCH (21:48)
[2017-05-04] MEDS: MONTELUKAST SODIUM 10 MG TABLET PO SCH (21:49)
[2017-05-05] MEDS: PIPERACILLIN SODIUM/TAZOBACTAM 3.375 GM in NORMAL SALINE 100 ML IV SCH ×4 (00:16→17:16)
[2017-05-05] MEDS: HYDROCODONE/ACETAMINOPHEN 5-325 MG TABLET PO PRN ×4 (00:36→21:20)
[2017-05-05] MEDS: IPRATROPIUM/ALBUTEROL 0.5-2.5 MG/3 ML AMPUL NEB SCH ×4 (01:12→20:12)
[2017-05-05] MEDS: ACETAMINOPHEN 325 MG TABLET PO PRN (04:22)
[2017-05-05] MEDS: NORMAL SALINE 1000 ML 1,000 ML IV PRN (04:26)
[2017-05-05] MEDS: CYCLOBENZAPRINE HCL 10 MG TABLET PO SCH ×3 (05:13→21:21)
[2017-05-05] MEDS: CARBIDOPA/LEVODOPA 25-100 MG TABLET PO SCH ×3 (05:13→21:23)
[2017-05-05 05:33] LABS: ABSOLUTE BASOPHILS # (AUTO) 0.1 10^3/uL (0.0-0.2); ABSOLUTE EOSINOPHILS # (AUTO) 0.2 10^3/uL (0.0-0.6); ABSOLUTE LYMPHOCYTES (AUTO) 1.3 10^3/uL (0.5-4.7); ABSOLUTE MONOCYTES (AUTO) 0.7 10^3/uL (0.1-1.4); ABSOLUTE NEUT (AUTO) 7.7 10^3/uL (1.7-8.2); HEMATOCRIT 36.8 % (37.9-51.0); HEMOGLOBIN 12.6 g/dL (13.5-17.0); LYMPHOCYTES % (AUTO) 13.2 % (13-45); MEAN CORPUSCULAR HEMOGLOBIN 31.6 pg (27.0-33.4); MEAN CORPUSCULAR HGB CONC 34.2 g/dL (32.0-36.0); MEAN CORPUSCULAR VOLUME 92 fl (80-97); MONOCYTES % (AUTO) 7.2 % (3-13); RED BLOOD COUNT 3.98 10^6/uL (4.35-5.55); RED CELL DISTRIBUTION WIDTH 14.7 % (11.5-14.0); SEGMENTED NEUTROPHILS % (AUTO) 76.6 % (42-78); WHITE BLOOD COUNT 10.1 10^3/uL (4.0-10.5)
[2017-05-05 05:59] LABS: ANION GAP 10 (5-19); BLOOD UREA NITROGEN 19 mg/dL (7-20); CALCIUM 8.9 mg/dL (8.4-10.2); CARBON DIOXIDE 22 mmol/L (22-30); CHLORIDE 105 mmol/L (98-107); GLUCOSE 119 mg/dL (75-110); POTASSIUM 4.5 mmol/L (3.6-5.0); SODIUM 136.9 mmol/L (137-145)
[2017-05-05 07:33] LABS: ARTERIAL BLOOD BASE EXCESS -0.6 mmol/L; ARTERIAL BLOOD O2 SATURATION 93.9 % (94-98)
[2017-05-05] MEDS: FAMOTIDINE 20 MG TABLET PO SCH ×2 (09:46→21:23)
[2017-05-05] MEDS: TAMSULOSIN HCL 0.4 MG CAP.SR.24H PO SCH (09:46)
[2017-05-05] MEDS: MAGNESIUM OXIDE 400 MG TABLET PO SCH ×3 (09:46→17:16)
[2017-05-05] MEDS: DIGOXIN 0.125 MG TABLET PO SCH (09:47)
[2017-05-05] MEDS: ENOXAPARIN SODIUM INJ 40 MG/0.4 ML DISP.SYRIN SUBCUT SCH (09:47)
--- NOTE | 2017-05-05 10:38 | RADIOLOGY REPORT (SQ) ---
EXAM DESCRIPTION: CHEST SINGLE VIEW COMPLETED DATE/TIME: 05/05/2017 10:18 am REASON FOR STUDY: pleural effusion COMPARISON: 05/03/2017 EXAM PARAMETERS: NUMBER OF VIEWS: One view. TECHNIQUE: Single frontal radiographic view of the chest acquired. RADIATION DOSE: NA LIMITATIONS: None. FINDINGS: LUNGS AND PLEURA: There is considerable retro cardiac opacity. A left pleural effusion is present. Minimal right pleural effusion is suggested a left pleural effusion appears to be small in earlier study. MEDIASTINUM AND HILAR STRUCTURES: No masses. Contour normal. HEART AND VASCULAR STRUCTURES: Heart normal in size. Normal vasculature. BONES: No acute findings. HARDWARE: None in the chest. OTHER: No other significant finding. IMPRESSION: 1. Improved left pleural effusion. 2. Likely left lower lobe airspace disease. TECHNICAL DOCUMENTATION: JOB ID: [id number]
[2017-05-05] MEDS ORDERED: LIDOCAINE 1% INJ-PF (10 MG/ML) 30 ML SDV ONE (13:31)
--- NOTE | 2017-05-05 14:07 | PDOC PROGRESS REPORT ---
Subjective Progress Note for:: 05/05/17 Subjective:: Denies any complaints. Physical Exam Vital Signs: Temp Pulse Resp BP Pulse Ox 98.2 F 75 18 100/69 92 05/05/17 11:04 05/05/17 11:04 05/05/17 11:04 05/05/17 11:04 05/05/17 11:04 Intake & Output 05/04/17 05/05/17 05/06/17 06:59 06:59 06:59 Intake Total 920 1130 Output Total 3400 1850 Balance -2480 -720 Weight 105.2 kg 100.1 kg General appearance: PRESENT: no acute distress Eye exam: PRESENT: conjunctiva pink. ABSENT: scleral icterus Ear exam: PRESENT: normal external ear exam Mouth exam: PRESENT: moist, tongue midline Neck exam: ABSENT: JVD Respiratory exam: PRESENT: decreased breath sounds - Decreased breath sounds in the left base. ABSENT: rales, rhonchi, wheezes Cardiovascular exam: PRESENT: RRR. ABSENT: diastolic murmur, rubs, systolic murmur GI/Abdominal exam: PRESENT: normal bowel sounds, soft. ABSENT: distended, guarding, mass, organolmegaly, rebound, tenderness Extremities exam: ABSENT: calf tenderness, clubbing, pedal edema Neurological exam: PRESENT: alert, awake, oriented to person, oriented to place , oriented to time, oriented to situation, CN II-XII grossly intact. ABSENT: motor sensory deficit Psychiatric exam: PRESENT: appropriate affect Skin exam: PRESENT: dry, intact, warm. ABSENT: cyanosis, rash Results Laboratory Results: 05/05/17 04:58 05/05/17 04:58 05/05/17 05/05/17 05/05/17 04:58 04:58 07:25 WBC 10.1 RBC 3.98 L Hgb 12.6 L Hct 36.8 L MCV 92 MCH 31.6 MCHC 34.2 RDW 14.7 H Plt Count 306 Seg Neutrophils % 76.6 Lymphocytes % 13.2 Monocytes % 7.2 Eosinophils % 2.0 Basophils % 1.0 Absolute Neutrophils 7.7 Absolute Lymphocytes 1.3 Absolute Monocytes 0.7 Absolute Eosinophils 0.2 Absolute Basophils 0.1 Carbonic Acid 0.95 L HCO3/H2CO3 Ratio 23:1 ABG pH 7.47 H ABG pCO2 31.4 L ABG pO2 63.9 L ABG HCO3 22.3 ABG O2 Saturation 93.9 L ABG Base Excess -0.6 FiO2 2.5L Sodium 136.9 L Potassium 4.5 Chloride 105 Carbon Dioxide 22 Anion Gap 10 BUN 19 Creatinine 0.70 Est GFR ( Amer) > 60 Est GFR (Non-Af Amer) > 60 Glucose 119 H Calcium 8.9 05/01/17 09:30 Pleural Fluid Gram Stain - Final 05/01/17 09:30 Pleural Fluid Body Fluid Culture - Final NO AEROBIC OR ANAEROBIC ORGANISMS RECOVERED 04/26/17 04/30/17 04/30/17 17:42 01:26 01:26 Creatine Kinase 141 CK-MB (CK-2) 0.75 Troponin I < 0.012 < 0.012 04/30/17 04/30/17 04/30/17 07:26 07:26 13:45 Creatine Kinase 284 H 871 H CK-MB (CK-2) 3.77 Troponin I 0.017 04/30/17 13:45 Creatine Kinase CK-MB (CK-2) 8.30 H Troponin I 0.016 Impressions: Abdomen/Pelvis CT 04/26/17 12:45 IMPRESSION: Multiple air and fluid distended large and small bowel loops are identified as noted above most consistent with an ileus pattern although the possibility of an underlying obstruction cannot be excluded. Clinical correlation is recommended. Other findings as noted above KUB X-Ray 04/27/17 00:00 IMPRESSION: NG tube appears adequate. L stable. Modified Barium Swallow 04/29/17 00:00 IMPRESSION: LARYNGEAL PENETRATION WITH PROBABLE TRACE ASPIRATION WITH THIN AND HONEY THICK CONSISTENCIES.PLEASE SEE SPEECH PATHOLOGIST REPORT FOR OTHER FINDINGS AND RECOMMENDATIONS. Thoracentesis Ultrasound 05/01/17 00:00 IMPRESSION: SUCCESSFUL THORACENTESIS USING ULTRASOUND GUIDANCE. Chest X-Ray 05/05/17 00:00 IMPRESSION: 1. Improved left pleural effusion. 2. Likely left lower lobe airspace disease. Assessment & Plan - Diagnosis (1) Sepsis Qualifiers: Sepsis type: sepsis due to unspecified organism Qualified Code(s): A41.9 - Sepsis, unspecified organism Is this a current diagnosis for this admission?: Yes Plan: Most likely secondary to infectious colitis. The patient may have aspiration pneumonia also. He does have a pleural effusion and some coarse rhonchi bilaterally. Will continue with antibiotics of Zosyn. Pulmonary medicine has evaluated the patient and they are recommending a chest tube placement for probable empyema. (2) LLL pneumonia Qualifiers: Pneumonia type: due to unspecified organism Qualified Code(s): J18.1 - Lobar pneumonia, unspecified organism Is this a current diagnosis for this admission?: Yes Plan: Most likely secondary to aspiration. Continue with Zosyn. Pulmonary medicine is recommending chest tube placement. (3) Infectious colitis Is this a current diagnosis for this admission?: Yes Plan: Antibiotics have been changed to IV because of pulmonary issues. From an infectious colitis standpoint he appears to be continued to show improvement. (4) Atrial fibrillation with rapid ventricular response Is this a current diagnosis for this admission?: Yes Plan: Currently in a regular rhythm. (5) Dementia Qualifiers: Dementia type: Parkinson's disease Dementia behavioral disturbance: without behavioral disturbance Qualified Code(s): G20 - Parkinson's disease; F02.80 - Dementia in other diseases classified elsewhere without behavioral disturbance Is this a current diagnosis for this admission?: Yes Plan: Stable (6) Essential hypertension Is this a current diagnosis for this admission?: Yes Plan: Blood pressure is under good control. (7) GERD (gastroesophageal reflux disease) Qualifiers: Esophagitis presence: without esophagitis Qualified Code(s): K21.9 - Gastro -esophageal reflux disease without esophagitis Is this a current diagnosis for this admission?: Yes Plan: Speech therapy has recommended honey thick liquids and pured diet. (8) Ileus, unspecified Is this a current diagnosis for this admission?: Yes Plan: Resolved. (9) Peripheral vascular disease Is this a current diagnosis for this admission?: Yes (10) Wegeners granulomatosis Is this a current diagnosis for this admission?: Yes (11) COPD exacerbation Is this a current diagnosis for this admission?: Yes Plan: No wheezing on exam today. Continue with nebulizers as needed. (12) Celiac disease Is this a current diagnosis for this admission?: Yes (13) Diabetes mellitus type 2 in nonobese Is this a current diagnosis for this admission?: Yes Plan: Blood sugars are under good control. (14) History of pulmonary embolus (PE) Is this a current diagnosis for this admission?: Yes (15) Parkinsons disease Is this a current diagnosis for this admission?: Yes Plan: Continue with Sinemet. Continue with Flexeril for neck pain associated with muscle spasms. - Time Time Spent with patient: 25-34 minutes - Inpatient Certification Medical Necessity: Need Close Monitoring Due to Risk of Patient Decompensation
--- NOTE | 2017-05-05 14:41 | RADIOLOGY REPORT (SQ) ---
EXAM DESCRIPTION: CHEST SINGLE VIEW COMPLETED DATE/TIME: 05/05/2017 2:04 pm REASON FOR STUDY: tlc verification COMPARISON: CT CHEST 03/31/2017 CHEST FILMS 04/08/2015, 05/01/2017, 05/03/2017, 05/05/2017 EXAM PARAMETERS: NUMBER OF VIEWS: One view. TECHNIQUE: Single frontal radiographic view of the chest acquired. RADIATION DOSE: NA LIMITATIONS: None. FINDINGS: LUNGS AND PLEURA: Unchanged blunting of the left lateral costophrenic sulcus and loss of d iscrete left hemidiaphragm from basilar airspace disease with or without trace pleural fluid. Minimal bandlike atelectasis right base. No gross pleural effusions or pneumothorax. MEDIASTINUM AND HILAR STRUCTURES: No masses. Contour normal. HEART AND VASCULAR STRUCTURES: Heart normal in size. Normal vasculature. BONES: No acute findings. HARDWARE: Left subclavian triple lumen catheter tip in the SVC. OTHER: No other significant finding. IMPRESSION: Persistent opacity left retrocardiac region likely a combination of pleural thickening/ fluid and basilar consolidation. This is similar compared to 05/05/2017 and 05/03/2017. Minimal bandlike atelectasis right lung base. TECHNICAL DOCUMENTATION: JOB ID: [id number]
--- NOTE | 2017-05-05 14:47 | PDOC CONSULTATION ---
Consultation Consult Date: 05/05/17 Attending physician:: CHYNA BOURNETEDEJAN Consult reason:: Pleural effusion History of Present Illness Admission Date/PCP: 04/26/17 16:33 History of Present Illness: This is a 77-year-old man Admitted for nausea vomiting dizziness sounded as if he had coffee-ground emesis is also felt that he may have a pneumonitis and that he did have a left pleural effusion he denies shortness of breath at rest but admits to some dips and exertion with some wheezing he denies hemoptysis his PPD was negative dates unknown. He denies history of chronic lung disease as a child or adolescent. He admits to exposure to passive smoke as a child as well as an adult he himself has a [id number] history but has not smoked in the last 3 years. 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 He has a history of Parkinson's disease has a shuffled gait and has fallen on several occasions in the past Past Medical History Cardiac Medical History: Reports: Atrial Fibrillation, Hyperlipidema, Hypertension, Peripheral Vascular Disease, Pulmonary Embolism - History of Denies: Congestive Heart Failure, Myocardial Infarction Pulmonary Medical History: Reports: Chronic Obstructive Pulmonary Disease (COPD) , Pneumonia Neurological Medical History: Denies: Seizures Endocrine Medical History: Reports: Diabetes Mellitus Type 2 Denies: Diabetes Mellitus Type 1, Hyperthyroidism, Hypothyroidism GI Medical History: Reports: Gastroesophageal Reflux Disease Denies: Cirrhosis, Hepatitis Musculoskeltal Medical History: Reports: Arthritis Skin Medical History: Denies: Eczema, Psoriasis Psychiatric Medical History: Reports: Dementia - BINSWANGER'S Denies: Depression Past Surgical History Past Surgical History: Reports: Cholecystectomy, Herniorrhaphy, Vascular Surgery - AAA REPAIR Social History Information Source: Relative, [facility] Records Lives with: Family Smoking Status: Former Smoker Cigarettes Packs Per Day: 1.5 Passive smoke exposure as: Both Frequency of Alcohol Use: None Hx Recreational Drug Use: No Drugs: None Hx Prescription Drug Abuse: No Do you have pets?: No Have you had any respiratory illnesses as a child?: No Have you been exposed to any sick contacts recently?: No Have you had any recent respiratory illnesses?: No Have you travelled outside of [place] in the past 12 months?: No Family History Family History: CAD, DM Parental Family History Reviewed: Yes Children Family History Reviewed: Yes Sibling(s) Family History Reviewed.: Yes Medication/Allergy Home Medications: Aspirin [Aspirin 81 mg Chewable Tablet] 81 mg PO QPM 04/26/17 Carbidopa/Levodopa [Sinemet 25-100 mg Tablet] 1.5 tab PO Q8 04/26/17 Clonazepam [Klonopin] 0.5 mg PO QHS 04/26/17 Furosemide [Lasix 40 mg Tablet] 40 mg PO DAILY 04/26/17 Lisinopril [Prinivil 2.5 mg Tablet] 2.5 mg PO DAILY 04/26/17 Magnesium Oxide [Mag-Ox 400 mg Tablet] 400 mg PO TID 04/26/17 Memantine HCl [Namenda] 5 mg PO QHS 04/26/17 Metformin HCl [Glucophage XR 500 mg Tablet] 500 mg PO QPM 04/26/17 Mirtazapine [Remeron] 30 mg PO DAILY 04/26/17 Montelukast Sodium [Singulair 10 mg Tablet] 10 mg PO QHS 04/26/17 Omeprazole 40 mg PO DAILY 04/26/17 Tamsulosin HCl [Flomax 0.4 mg Cap.sr] 0.4 mg PO DAILY 04/26/17 Allergies/Adverse Reactions: morphine Allergy (Verified 04/26/17 13:03) Physical Exam Vital Signs: Temp Pulse Resp BP Pulse Ox 98.4 F 69 16 115/56 L 91 L 05/05/17 07:37 05/05/17 07:44 05/05/17 07:44 05/05/17 07:37 05/05/17 07:44 Intake & Output 05/04/17 05/05/17 05/06/17 06:59 06:59 06:59 Intake Total 920 1130 Output Total 3400 1850 Balance -2480 -720 Weight 105.2 kg 100.1 kg General appearance: PRESENT: no acute distress, cooperative, disheveled, thin, well-developed Head exam: PRESENT: atraumatic, normocephalic Eye exam: PRESENT: conjunctiva pale, EOMI Mouth exam: PRESENT: dry mucosa, neck supple, tongue midline Teeth exam: PRESENT: poor dentation Neck exam: ABSENT: carotid bruit, JVD, lymphadenopathy, thyromegaly Respiratory exam: PRESENT: decreased breath sounds, prolonged expiratory phas, rales, rhonchi, unlabored. ABSENT: crackles, retraction, stridor, tachypnea, wheezes Cardiovascular exam: PRESENT: RRR, +S1, +S2. ABSENT: tachycardia Pulses: PRESENT: normal radial pulses GI/Abdominal exam: PRESENT: normal bowel sounds, soft. ABSENT: distended, guarding, mass, organolmegaly, rebound, tenderness Rectal exam: PRESENT: deferred Gentrourinary exam: PRESENT: indwelling catheter Musculoskeletal exam: PRESENT: normal inspection Neurological exam: PRESENT: awake Psychiatric exam: PRESENT: flat affect Skin exam: PRESENT: dry, warm Results Laboratory Results: 05/05/17 04:58 05/05/17 04:58 05/05/17 05/05/17 05/05/17 04:58 04:58 07:25 WBC 10.1 RBC 3.98 L Hgb 12.6 L Hct 36.8 L MCV 92 MCH 31.6 MCHC 34.2 RDW 14.7 H Plt Count 306 Seg Neutrophils % 76.6 Lymphocytes % 13.2 Monocytes % 7.2 Eosinophils % 2.0 Basophils % 1.0 Absolute Neutrophils 7.7 Absolute Lymphocytes 1.3 Absolute Monocytes 0.7 Absolute Eosinophils 0.2 Absolute Basophils 0.1 Carbonic Acid 0.95 L HCO3/H2CO3 Ratio 23:1 ABG pH 7.47 H ABG pCO2 31.4 L ABG pO2 63.9 L ABG HCO3 22.3 ABG O2 Saturation 93.9 L ABG Base Excess -0.6 FiO2 2.5L Sodium 136.9 L Potassium 4.5 Chloride 105 Carbon Dioxide 22 Anion Gap 10 BUN 19 Creatinine 0.70 Est GFR ( Amer) > 60 Est GFR (Non-Af Amer) > 60 Glucose 119 H Calcium 8.9 04/26/17 04/30/17 04/30/17 17:42 01:26 01:26 Creatine Kinase 141 CK-MB (CK-2) 0.75 Troponin I < 0.012 < 0.012 04/30/17 04/30/17 04/30/17 07:26 07:26 13:45 Creatine Kinase 284 H 871 H CK-MB (CK-2) 3.77 Troponin I 0.017 04/30/17 13:45 Creatine Kinase CK-MB (CK-2) 8.30 H Troponin I 0.016 Impressions: Abdomen/Pelvis CT 04/26/17 12:45 IMPRESSION: Multiple air and fluid distended large and small bowel loops are identified as noted above most consistent with an ileus pattern although the possibility of an underlying obstruction cannot be excluded. Clinical correlation is recommended. Other findings as noted above KUB X-Ray 04/27/17 00:00 IMPRESSION: NG tube appears adequate. L stable. Modified Barium Swallow 04/29/17 00:00 IMPRESSION: LARYNGEAL PENETRATION WITH PROBABLE TRACE ASPIRATION WITH THIN AND HONEY THICK CONSISTENCIES.PLEASE SEE SPEECH PATHOLOGIST REPORT FOR OTHER FINDINGS AND RECOMMENDATIONS. Thoracentesis Ultrasound 05/01/17 00:00 IMPRESSION: SUCCESSFUL THORACENTESIS USING ULTRASOUND GUIDANCE. Chest X-Ray 05/03/17 00:00 IMPRESSION: Increasing pleural effusions. Assessment & Plan - Diagnosis (1) Empyema lung Is this a current diagnosis for this admission?: Yes Plan: Pleural fluid displayed a white count of 36,600 discussed with surgery as standard consider putting in a chest tube is a certainly represents an empyema will check current chest x-ray to see the degree of effusion at this time (2) LLL pneumonia Qualifiers: Pneumonia type: due to unspecified organism Qualified Code(s): J18.1 - Lobar pneumonia, unspecified organism Is this a current diagnosis for this admission?: Yes Plan: No leukocytosis no left shift no positive cultures at this time 05/04/17 06:40 Blood Culture - Preliminary Blood NO GROWTH IN 24 HOURS 05/04/17 05:41 Blood Culture - Preliminary Blood NO GROWTH IN 24 HOURS 05/04/17 04:55 Urine Culture - Preliminary Catheterized Urine NO GROWTH IN 1 DAY 05/01/17 09:30 AFB Smear Concentration - Final Pleural Fluid - Not Specified Acid Fast Bacilli Culture & Smear - Pending 05/01/17 09:30 Gram Stain - Final Pleural Fluid Body Fluid Culture - Final NO AEROBIC OR ANAEROBIC ORGANISMS RECOVERED 04/27/17 04:37 Blood Culture - Final Blood NO GROWTH IN 5 DAYS 04/27/17 00:22 Blood Culture - Final Blood NO GROWTH IN 5 DAYS 04/27/17 00:07 Urine Culture - Final Lema Catheter NO GROWTH 2 DAYS (3) Atrial fibrillation Qualifiers: Atrial fibrillation type: paroxysmal Qualified Code(s): I48.0 - Paroxysmal atrial fibrillation Is this a current diagnosis for this admission?: Yes Plan: stable (4) Parkinsons disease Is this a current diagnosis for this admission?: Yes (5) Tobacco dependency Is this a current diagnosis for this admission?: Yes - Time Time Spent: Greater than 70 Minutes - 75 min discussed with RN;surgeon and PCP
--- NOTE | 2017-05-05 15:01 | RADIOLOGY REPORT (SQ) ---
EXAM DESCRIPTION: U/S CHEST COMPLETED DATE/TIME: 05/05/2017 2:44 pm REASON FOR STUDY: u/S GUIDANCE FOR CHEST TUBE PLACEMENT COMPARISON: Thoracentesis 05/01/2017 Chest film 05/05/2017 TECHNIQUE: Ultrasound was performed for guidance for chest tube placement LIMITATIONS: None. FINDINGS: Limited ultrasound of the left chest was performed. A small pocket of fluid in the left p osterolateral costophrenic sulcus was present. No chest tube was placed by the ordering physician. IMPRESSION: Small residual left pleural effusion, similar compared to 05/01/2017 TECHNICAL DOCUMENTATION: JOB ID: [id number] [employer]- All Rights Reserved
--- NOTE | 2017-05-05 16:02 | OPERATIVE REPORT E ---
Operative Report NAME: BRITTANY SALCEDO : 1940 AGE: 77Y DATE OF SURGERY: 05/05/2017 ROOM: 316 PREOPERATIVE DIAGNOSIS: POOR VEINS FOR IV ACCESS. POSTOPERATIVE DIAGNOSIS: POOR VEINS FOR IV ACCESS. OPERATION: Placement of left subclavian triple lumen catheter. SURGEON: GOOD VERGARA M.D. ANESTHESIA: Local. INDICATIONS: This is a 77-year-old male who needed an IV access. Multiple times attempted by nurses to put a peripheral line and unable to do so. The only line he had apparently he directly pulled it out. PROCEDURE: The patient was placed in the slight Trendelenburg position and the left chest and neck were then prepped and draped in the usual sterile fashion. Local anesthesia infiltrated at the left infraclavicular area and the left subclavian punctured and a guidewire passed through the needle into the area of the superior vena cava. The needle was pulled out and the puncture site enlarged and dilated. A triple lumen catheter was then passed through the guidewire to a distance of about 16 cm. The guidewire was subsequently pulled out. All the three ports aspirated blood easily and injected saline easily. Next, the catheter was anchored to the skin with 3-0 silk. A Biopatch placed at the insertion site and transparent dressings placed over the catheter. Chest x-ray was done and showed tip of the catheter right in the superior vena cava and no evidence of pneumothorax. Patient did tolerate the procedure well. X-ray was done a few minutes later and just read it unofficially. DICTATING PHYSICIAN: GOOD VERGARA M.D. [id number] Y#: [id number] ID: [id number] JOB#: [id number] ACCT: [id number] cc:GOOD VERGARA M.D. >
[2017-05-05] MEDS: ASPIRIN 81 MG TABLET, CHEWABLE PO SCH (17:16)
[2017-05-05] MEDS: MIRTAZAPINE 15 MG TABLET PO SCH ×2 (21:23)
[2017-05-05] MEDS: MONTELUKAST SODIUM 10 MG TABLET PO SCH (21:23)
[2017-05-05] MEDS: MEMANTINE HCL 10 MG TABLET PO SCH (21:23)
[2017-05-06] MEDS: PIPERACILLIN SODIUM/TAZOBACTAM 3.375 GM in NORMAL SALINE 100 ML IV SCH ×5 (00:32→23:13)
[2017-05-06] MEDS: IPRATROPIUM/ALBUTEROL 0.5-2.5 MG/3 ML AMPUL NEB SCH ×4 (01:12→19:49)
[2017-05-06] MEDS: CYCLOBENZAPRINE HCL 10 MG TABLET PO SCH ×3 (05:22→21:36)
[2017-05-06] MEDS: CARBIDOPA/LEVODOPA 25-100 MG TABLET PO SCH ×3 (05:22→21:35)
[2017-05-06 06:08] LABS: ABSOLUTE BASOPHILS # (AUTO) 0.1 10^3/uL (0.0-0.2); ABSOLUTE EOSINOPHILS # (AUTO) 0.2 10^3/uL (0.0-0.6); ABSOLUTE LYMPHOCYTES (AUTO) 1.4 10^3/uL (0.5-4.7); ABSOLUTE MONOCYTES (AUTO) 0.7 10^3/uL (0.1-1.4); BASOPHILS % (AUTO) 0.7 % (0-2); EOSINOPHILS % (AUTO) 2.4 % (0-6); HEMATOCRIT 35.9 % (37.9-51.0); HEMOGLOBIN 12.4 g/dL (13.5-17.0); HGB HCT DIFFERENCE 1.3; LYMPHOCYTES % (AUTO) 14.9 % (13-45); MEAN CORPUSCULAR HEMOGLOBIN 31.7 pg (27.0-33.4); MEAN CORPUSCULAR HGB CONC 34.5 g/dL (32.0-36.0); MEAN CORPUSCULAR VOLUME 92 fl (80-97); MONOCYTES % (AUTO) 7.4 % (3-13); RED BLOOD COUNT 3.89 10^6/uL (4.35-5.55); RED CELL DISTRIBUTION WIDTH 14.7 % (11.5-14.0); SEGMENTED NEUTROPHILS % (AUTO) 74.6 % (42-78); WHITE BLOOD COUNT 9.3 10^3/uL (4.0-10.5)
[2017-05-06 06:23] LABS: ANION GAP 8 (5-19); BLOOD UREA NITROGEN 19 mg/dL (7-20); CALCIUM 8.7 mg/dL (8.4-10.2); CARBON DIOXIDE 24 mmol/L (22-30); CHLORIDE 104 mmol/L (98-107); CREATININE RESULT 0.62 mg/dL (0.52-1.25); GLUCOSE 125 mg/dL (75-110); POTASSIUM 4.6 mmol/L (3.6-5.0); SODIUM 135.5 mmol/L (137-145)
[2017-05-06] MEDS ORDERED: LACTULOSE SYRUP 20 GM/30 ML UDCUP PO PRN (09:49)
[2017-05-06] MEDS: ENOXAPARIN SODIUM INJ 40 MG/0.4 ML DISP.SYRIN SUBCUT SCH (10:26)
[2017-05-06] MEDS: FAMOTIDINE 20 MG TABLET PO SCH ×2 (10:27→21:33)
[2017-05-06] MEDS: DIGOXIN 0.125 MG TABLET PO SCH (10:27)
[2017-05-06] MEDS: MAGNESIUM OXIDE 400 MG TABLET PO SCH ×3 (10:27→17:22)
[2017-05-06] MEDS: TAMSULOSIN HCL 0.4 MG CAP.SR.24H PO SCH (10:27)
[2017-05-06] MEDS: HYDROCODONE/ACETAMINOPHEN 5-325 MG TABLET PO PRN (11:09)
--- NOTE | 2017-05-06 11:26 | PDOC PROGRESS REPORT ---
Subjective Progress Note for:: 05/06/17 Subjective:: Denies any complaints. Physical Exam Vital Signs: Temp Pulse Resp BP Pulse Ox 98.5 F 71 20 113/70 93 05/06/17 07:13 05/06/17 07:45 05/06/17 07:45 05/06/17 07:13 05/06/17 07:45 Intake & Output 05/05/17 05/06/17 05/07/17 06:59 06:59 06:59 Intake Total 1130 1657 Output Total 1850 1800 Balance -720 -143 Weight 100.1 kg 99.6 kg General appearance: PRESENT: no acute distress Eye exam: PRESENT: conjunctiva pink. ABSENT: scleral icterus Ear exam: PRESENT: normal external ear exam Mouth exam: PRESENT: moist, tongue midline Neck exam: ABSENT: JVD Respiratory exam: PRESENT: decreased breath sounds - Decrease in the left base. ABSENT: rales, rhonchi, wheezes Cardiovascular exam: PRESENT: RRR. ABSENT: diastolic murmur, rubs, systolic murmur GI/Abdominal exam: PRESENT: normal bowel sounds, soft. ABSENT: distended, guarding, mass, organolmegaly, rebound, tenderness Extremities exam: ABSENT: calf tenderness, clubbing, pedal edema Neurological exam: PRESENT: awake, oriented to person, oriented to place, oriented to time Psychiatric exam: PRESENT: appropriate affect Skin exam: PRESENT: dry, intact, warm. ABSENT: cyanosis, rash Results Laboratory Results: 05/06/17 05:00 05/06/17 05:00 05/06/17 05/06/17 05:00 05:00 WBC 9.3 RBC 3.89 L Hgb 12.4 L Hct 35.9 L MCV 92 MCH 31.7 MCHC 34.5 RDW 14.7 H Plt Count 329 Seg Neutrophils % 74.6 Lymphocytes % 14.9 Monocytes % 7.4 Eosinophils % 2.4 Basophils % 0.7 Absolute Neutrophils 7.0 Absolute Lymphocytes 1.4 Absolute Monocytes 0.7 Absolute Eosinophils 0.2 Absolute Basophils 0.1 Sodium 135.5 L Potassium 4.6 Chloride 104 Carbon Dioxide 24 Anion Gap 8 BUN 19 Creatinine 0.62 Est GFR ( Amer) > 60 Est GFR (Non-Af Amer) > 60 Glucose 125 H Calcium 8.7 05/04/17 04:55 Catheterized Urine Urine Culture - Final NO GROWTH 2 DAYS 05/01/17 09:30 Pleural Fluid Gram Stain - Final 05/01/17 09:30 Pleural Fluid Body Fluid Culture - Final NO AEROBIC OR ANAEROBIC ORGANISMS RECOVERED 04/26/17 04/30/17 04/30/17 17:42 01:26 01:26 Creatine Kinase 141 CK-MB (CK-2) 0.75 Troponin I < 0.012 < 0.012 04/30/17 04/30/17 04/30/17 07:26 07:26 13:45 Creatine Kinase 284 H 871 H CK-MB (CK-2) 3.77 Troponin I 0.017 04/30/17 13:45 Creatine Kinase CK-MB (CK-2) 8.30 H Troponin I 0.016 Impressions: Abdomen/Pelvis CT 04/26/17 12:45 IMPRESSION: Multiple air and fluid distended large and small bowel loops are identified as noted above most consistent with an ileus pattern although the possibility of an underlying obstruction cannot be excluded. Clinical correlation is recommended. Other findings as noted above KUB X-Ray 04/27/17 00:00 IMPRESSION: NG tube appears adequate. L stable. Modified Barium Swallow 04/29/17 00:00 IMPRESSION: LARYNGEAL PENETRATION WITH PROBABLE TRACE ASPIRATION WITH THIN AND HONEY THICK CONSISTENCIES.PLEASE SEE SPEECH PATHOLOGIST REPORT FOR OTHER FINDINGS AND RECOMMENDATIONS. Thoracentesis Ultrasound 05/01/17 00:00 IMPRESSION: SUCCESSFUL THORACENTESIS USING ULTRASOUND GUIDANCE. Chest X-Ray 05/05/17 00:00 IMPRESSION: Persistent opacity left retrocardiac region likely a combination of pleural thickening/ fluid and basilar consolidation. This is similar compared to 05/05/2017 and 05/03/2017. Minimal bandlike atelectasis right lung base. Chest Ultrasound 05/05/17 13:00 IMPRESSION: Small residual left pleural effusion, similar compared to 05/01/2017 Assessment & Plan - Diagnosis (1) Sepsis Qualifiers: Sepsis type: sepsis due to unspecified organism Qualified Code(s): A41.9 - Sepsis, unspecified organism Is this a current diagnosis for this admission?: Yes Plan: Most likely secondary to infectious colitis. The patient may have aspiration pneumonia also. He does have a pleural effusion and some coarse rhonchi bilaterally. Will continue with antibiotics of Zosyn. Pulmonary medicine has evaluated the patient they said to consider a chest tube however general surgery felt that the effusion was too small to place a chest tube and we have decided to treat with prolonged antibiotics for presumed empyema. (2) LLL pneumonia Qualifiers: Pneumonia type: due to unspecified organism Qualified Code(s): J18.1 - Lobar pneumonia, unspecified organism Is this a current diagnosis for this admission?: Yes Plan: Most likely secondary to aspiration. Continue with Zosyn. Has a probable empyema. The area is too small for a chest tube. Will treat with prolonged antibiotics. (3) Infectious colitis Is this a current diagnosis for this admission?: Yes Plan: From an infectious colitis standpoint he appears to be continued to show improvement. (4) Atrial fibrillation with rapid ventricular response Is this a current diagnosis for this admission?: Yes Plan: Currently in a regular rhythm. (5) Dementia Qualifiers: Dementia type: Parkinson's disease Dementia behavioral disturbance: without behavioral disturbance Qualified Code(s): G20 - Parkinson's disease; F02.80 - Dementia in other diseases classified elsewhere without behavioral disturbance Is this a current diagnosis for this admission?: Yes Plan: Stable (6) Essential hypertension Is this a current diagnosis for this admission?: Yes Plan: Blood pressure is under good control. (7) GERD (gastroesophageal reflux disease) Qualifiers: Esophagitis presence: without esophagitis Qualified Code(s): K21.9 - Gastro -esophageal reflux disease without esophagitis Is this a current diagnosis for this admission?: Yes Plan: Speech therapy has recommended honey thick liquids and pured diet. (8) Ileus, unspecified Is this a current diagnosis for this admission?: Yes Plan: Resolved. (9) Peripheral vascular disease Is this a current diagnosis for this admission?: Yes (10) Wegeners granulomatosis Is this a current diagnosis for this admission?: Yes (11) COPD exacerbation Is this a current diagnosis for this admission?: Yes Plan: No wheezing on exam today. Continue with nebulizers as needed. (12) Celiac disease Is this a current diagnosis for this admission?: Yes (13) Diabetes mellitus type 2 in nonobese Is this a current diagnosis for this admission?: Yes Plan: Blood sugars are under good control. (14) History of pulmonary embolus (PE) Is this a current diagnosis for this admission?: Yes (15) Parkinsons disease Is this a current diagnosis for this admission?: Yes Plan: Continue with Sinemet. Continue with Flexeril for neck pain associated with muscle spasms. - Time Time Spent with patient: 25-34 minutes - Inpatient Certification Medical Necessity: Need for IV Antibiotics - Plan Summary Plan Summary: Patient will need rehab for physical therapy.
[2017-05-06] MEDS ORDERED: INFLUENZA ADLT QUAD (36MOS+) 2017-18 VAC 0.5 ML SYR IM PRN (12:50)
--- NOTE | 2017-05-06 13:13 | PDOC PROGRESS REPORT ---
Subjective Progress Note for:: 05/06/17 Subjective:: Awake and responsive Physical Exam Vital Signs: Temp Pulse Resp BP Pulse Ox 98.9 F 79 22 H 116/73 97 05/06/17 11:37 05/06/17 11:37 05/06/17 11:37 05/06/17 11:37 05/06/17 11:37 Intake & Output 05/05/17 05/06/17 05/07/17 06:59 06:59 06:59 Intake Total 1130 1657 Output Total 1850 1800 Balance -720 -143 Weight 100.1 kg 99.6 kg General appearance: PRESENT: no acute distress, cooperative, disheveled, hard of hearing, well-developed Head exam: PRESENT: atraumatic, normocephalic Eye exam: PRESENT: conjunctiva pale, EOMI Mouth exam: PRESENT: dry mucosa, neck supple, tongue midline Neck exam: ABSENT: carotid bruit, JVD, lymphadenopathy, thyromegaly Respiratory exam: PRESENT: decreased breath sounds, prolonged expiratory phas, rhonchi, symmetrical, unlabored. ABSENT: crackles, rales, retraction, stridor, tachypnea, wheezes Cardiovascular exam: PRESENT: irregular rhythm Pulses: PRESENT: normal radial pulses GI/Abdominal exam: PRESENT: normal bowel sounds, soft. ABSENT: distended, guarding, mass, organolmegaly, rebound, tenderness Rectal exam: PRESENT: deferred Gentrourinary exam: PRESENT: indwelling catheter Extremities exam: PRESENT: +1 edema Neurological exam: PRESENT: alert, awake Psychiatric exam: PRESENT: flat affect Skin exam: PRESENT: dry, warm Results Laboratory Results: 05/06/17 05:00 05/06/17 05:00 05/06/17 05/06/17 05:00 05:00 WBC 9.3 RBC 3.89 L Hgb 12.4 L Hct 35.9 L MCV 92 MCH 31.7 MCHC 34.5 RDW 14.7 H Plt Count 329 Seg Neutrophils % 74.6 Lymphocytes % 14.9 Monocytes % 7.4 Eosinophils % 2.4 Basophils % 0.7 Absolute Neutrophils 7.0 Absolute Lymphocytes 1.4 Absolute Monocytes 0.7 Absolute Eosinophils 0.2 Absolute Basophils 0.1 Sodium 135.5 L Potassium 4.6 Chloride 104 Carbon Dioxide 24 Anion Gap 8 BUN 19 Creatinine 0.62 Est GFR ( Amer) > 60 Est GFR (Non-Af Amer) > 60 Glucose 125 H Calcium 8.7 05/04/17 04:55 Catheterized Urine Urine Culture - Final NO GROWTH 2 DAYS 05/01/17 09:30 Pleural Fluid Gram Stain - Final 05/01/17 09:30 Pleural Fluid Body Fluid Culture - Final NO AEROBIC OR ANAEROBIC ORGANISMS RECOVERED 04/26/17 04/30/17 04/30/17 17:42 01:26 01:26 Creatine Kinase 141 CK-MB (CK-2) 0.75 Troponin I < 0.012 < 0.012 04/30/17 04/30/17 04/30/17 07:26 07:26 13:45 Creatine Kinase 284 H 871 H CK-MB (CK-2) 3.77 Troponin I 0.017 04/30/17 13:45 Creatine Kinase CK-MB (CK-2) 8.30 H Troponin I 0.016 Impressions: Abdomen/Pelvis CT 04/26/17 12:45 IMPRESSION: Multiple air and fluid distended large and small bowel loops are identified as noted above most consistent with an ileus pattern although the possibility of an underlying obstruction cannot be excluded. Clinical correlation is recommended. Other findings as noted above KUB X-Ray 04/27/17 00:00 IMPRESSION: NG tube appears adequate. L stable. Modified Barium Swallow 04/29/17 00:00 IMPRESSION: LARYNGEAL PENETRATION WITH PROBABLE TRACE ASPIRATION WITH THIN AND HONEY THICK CONSISTENCIES.PLEASE SEE SPEECH PATHOLOGIST REPORT FOR OTHER FINDINGS AND RECOMMENDATIONS. Thoracentesis Ultrasound 05/01/17 00:00 IMPRESSION: SUCCESSFUL THORACENTESIS USING ULTRASOUND GUIDANCE. Chest X-Ray 05/05/17 00:00 IMPRESSION: Persistent opacity left retrocardiac region likely a combination of pleural thickening/ fluid and basilar consolidation. This is similar compared to 05/05/2017 and 05/03/2017. Minimal bandlike atelectasis right lung base. Chest Ultrasound 05/05/17 13:00 IMPRESSION: Small residual left pleural effusion, similar compared to 05/01/2017 Assessment & Plan - Diagnosis (1) Empyema lung Is this a current diagnosis for this admission?: Yes Plan: Effusion decreasing without assistance currently afebrile with no leukocytosis or left shift does not appear that this would compromise the patient in the long run (2) LLL pneumonia Qualifiers: Pneumonia type: due to unspecified organism Qualified Code(s): J18.1 - Lobar pneumonia, unspecified organism Is this a current diagnosis for this admission?: Yes Plan: No positive cultures (3) Atrial fibrillation Qualifiers: Atrial fibrillation type: paroxysmal Qualified Code(s): I48.0 - Paroxysmal atrial fibrillation Is this a current diagnosis for this admission?: Yes (4) Parkinsons disease Is this a current diagnosis for this admission?: Yes (5) Tobacco dependency Is this a current diagnosis for this admission?: Yes
[2017-05-06] MEDS: NYSTATIN/TRIAMCIN CREAM 15 GM TP SCH ×3 (13:54→21:42)
[2017-05-06] MEDS: ASPIRIN 81 MG TABLET, CHEWABLE PO SCH (17:22)
[2017-05-06] MEDS: MEMANTINE HCL 10 MG TABLET PO SCH (21:33)
[2017-05-06] MEDS: CLONAZEPAM 1 MG TABLET PO SCH (21:34)
[2017-05-06] MEDS: MONTELUKAST SODIUM 10 MG TABLET PO SCH (21:34)
[2017-05-06] MEDS: MIRTAZAPINE 15 MG TABLET PO SCH (21:36)
[2017-05-07] MEDS: IPRATROPIUM/ALBUTEROL 0.5-2.5 MG/3 ML AMPUL NEB SCH ×4 (01:45→20:13)
[2017-05-07] MEDS: HYDROCODONE/ACETAMINOPHEN 5-325 MG TABLET PO PRN ×2 (02:26→08:46)
[2017-05-07 05:55] LABS: ABSOLUTE BASOPHILS # (AUTO) 0.1 10^3/uL (0.0-0.2); ABSOLUTE EOSINOPHILS # (AUTO) 0.2 10^3/uL (0.0-0.6); ABSOLUTE LYMPHOCYTES (AUTO) 1.4 10^3/uL (0.5-4.7); ABSOLUTE MONOCYTES (AUTO) 0.8 10^3/uL (0.1-1.4); BASOPHILS % (AUTO) 0.6 % (0-2); EOSINOPHILS % (AUTO) 2.5 % (0-6); HEMATOCRIT 35.9 % (37.9-51.0); HGB HCT DIFFERENCE 0.1; LYMPHOCYTES % (AUTO) 16.7 % (13-45); MEAN CORPUSCULAR HEMOGLOBIN 31.1 pg (27.0-33.4); MEAN CORPUSCULAR HGB CONC 33.5 g/dL (32.0-36.0); MEAN CORPUSCULAR VOLUME 93 fl (80-97); MONOCYTES % (AUTO) 9.5 % (3-13); RED BLOOD COUNT 3.86 10^6/uL (4.35-5.55); RED CELL DISTRIBUTION WIDTH 14.7 % (11.5-14.0); SEGMENTED NEUTROPHILS % (AUTO) 70.7 % (42-78); WHITE BLOOD COUNT 8.5 10^3/uL (4.0-10.5)
[2017-05-07 05:59] LABS: ANION GAP 9 (5-19); BLOOD UREA NITROGEN 16 mg/dL (7-20); CALCIUM 8.9 mg/dL (8.4-10.2); CARBON DIOXIDE 23 mmol/L (22-30); CHLORIDE 105 mmol/L (98-107); CREATININE RESULT 0.68 mg/dL (0.52-1.25); GLUCOSE 125 mg/dL (75-110); POTASSIUM 4.7 mmol/L (3.6-5.0); SODIUM 136.8 mmol/L (137-145)
[2017-05-07] MEDS: CARBIDOPA/LEVODOPA 25-100 MG TABLET PO SCH ×3 (06:18→21:27)
[2017-05-07] MEDS: CYCLOBENZAPRINE HCL 10 MG TABLET PO SCH ×3 (06:19→21:27)
[2017-05-07] MEDS: PIPERACILLIN SODIUM/TAZOBACTAM 3.375 GM in NORMAL SALINE 100 ML IV SCH ×4 (06:20→23:51)
--- NOTE | 2017-05-07 09:17 | PDOC PROGRESS REPORT ---
Subjective Progress Note for:: 05/07/17 Subjective:: that machine(BIPAP not good for my breathing) Physical Exam Vital Signs: Temp Pulse Resp BP Pulse Ox 98.1 F 76 20 110/68 99 05/07/17 07:13 05/07/17 07:13 05/07/17 07:13 05/07/17 07:13 05/07/17 07:13 Intake & Output 05/06/17 05/07/17 05/08/17 06:59 06:59 06:59 Intake Total 1657 1498 Output Total 1800 2400 Balance -143 -902 Weight 99.6 kg 99 kg General appearance: PRESENT: no acute distress, disheveled, obese Head exam: PRESENT: atraumatic, normocephalic Eye exam: PRESENT: conjunctiva pale, EOMI Mouth exam: PRESENT: dry mucosa, neck supple, tongue midline Teeth exam: PRESENT: poor dentation Neck exam: ABSENT: carotid bruit, JVD, lymphadenopathy, thyromegaly Respiratory exam: PRESENT: decreased breath sounds, prolonged expiratory phas, rhonchi, symmetrical, unlabored. ABSENT: rales, retraction, stridor, tachypnea , wheezes Cardiovascular exam: PRESENT: RRR, +S1, +S2 Pulses: PRESENT: normal radial pulses GI/Abdominal exam: PRESENT: ascites Rectal exam: PRESENT: deferred Gentrourinary exam: PRESENT: indwelling catheter Extremities exam: PRESENT: +1 edema Neurological exam: PRESENT: alert, awake. ABSENT: altered Skin exam: PRESENT: dry, warm Results Laboratory Results: 05/07/17 05:10 05/07/17 05:10 05/07/17 05/07/17 05:10 05:10 WBC 8.5 RBC 3.86 L Hgb 12.0 L Hct 35.9 L MCV 93 MCH 31.1 MCHC 33.5 RDW 14.7 H Plt Count 400 Seg Neutrophils % 70.7 Lymphocytes % 16.7 Monocytes % 9.5 Eosinophils % 2.5 Basophils % 0.6 Absolute Neutrophils 6.0 Absolute Lymphocytes 1.4 Absolute Monocytes 0.8 Absolute Eosinophils 0.2 Absolute Basophils 0.1 Sodium 136.8 L Potassium 4.7 Chloride 105 Carbon Dioxide 23 Anion Gap 9 BUN 16 Creatinine 0.68 Est GFR ( Amer) > 60 Est GFR (Non-Af Amer) > 60 Glucose 125 H Calcium 8.9 05/04/17 04:55 Catheterized Urine Urine Culture - Final NO GROWTH 2 DAYS 04/26/17 04/30/17 04/30/17 17:42 01:26 01:26 Creatine Kinase 141 CK-MB (CK-2) 0.75 Troponin I < 0.012 < 0.012 04/30/17 04/30/17 04/30/17 07:26 07:26 13:45 Creatine Kinase 284 H 871 H CK-MB (CK-2) 3.77 Troponin I 0.017 04/30/17 13:45 Creatine Kinase CK-MB (CK-2) 8.30 H Troponin I 0.016 Impressions: Abdomen/Pelvis CT 04/26/17 12:45 IMPRESSION: Multiple air and fluid distended large and small bowel loops are identified as noted above most consistent with an ileus pattern although the possibility of an underlying obstruction cannot be excluded. Clinical correlation is recommended. Other findings as noted above KUB X-Ray 04/27/17 00:00 IMPRESSION: NG tube appears adequate. L stable. Modified Barium Swallow 04/29/17 00:00 IMPRESSION: LARYNGEAL PENETRATION WITH PROBABLE TRACE ASPIRATION WITH THIN AND HONEY THICK CONSISTENCIES.PLEASE SEE SPEECH PATHOLOGIST REPORT FOR OTHER FINDINGS AND RECOMMENDATIONS. Thoracentesis Ultrasound 05/01/17 00:00 IMPRESSION: SUCCESSFUL THORACENTESIS USING ULTRASOUND GUIDANCE. Chest X-Ray 05/05/17 00:00 IMPRESSION: Persistent opacity left retrocardiac region likely a combination of pleural thickening/ fluid and basilar consolidation. This is similar compared to 05/05/2017 and 05/03/2017. Minimal bandlike atelectasis right lung base. Chest Ultrasound 05/05/17 13:00 IMPRESSION: Small residual left pleural effusion, similar compared to 05/01/2017 Assessment & Plan - Diagnosis (1) Empyema lung Is this a current diagnosis for this admission?: Yes Plan: Effusion decreasing without assistance currently afebrile with no leukocytosis or left shift does not appear that this would compromise the patient in the long run (2) LLL pneumonia Qualifiers: Pneumonia type: due to unspecified organism Qualified Code(s): J18.1 - Lobar pneumonia, unspecified organism Is this a current diagnosis for this admission?: Yes (3) Atrial fibrillation Qualifiers: Atrial fibrillation type: paroxysmal Qualified Code(s): I48.0 - Paroxysmal atrial fibrillation Is this a current diagnosis for this admission?: Yes (4) Parkinsons disease Is this a current diagnosis for this admission?: Yes (5) Tobacco dependency Is this a current diagnosis for this admission?: Yes (6) Acute on chronic respiratory failure with hypoxemia Is this a current diagnosis for this admission?: Yes Plan: changed bipap to AVAPS patient found it more tolerable
[2017-05-07] MEDS: NYSTATIN/TRIAMCIN CREAM 15 GM TP SCH ×4 (11:00→21:34)
[2017-05-07] MEDS: DIGOXIN 0.125 MG TABLET PO SCH (11:01)
[2017-05-07] MEDS: FAMOTIDINE 20 MG TABLET PO SCH ×2 (11:01→21:27)
[2017-05-07] MEDS: TAMSULOSIN HCL 0.4 MG CAP.SR.24H PO SCH (11:01)
[2017-05-07] MEDS: MAGNESIUM OXIDE 400 MG TABLET PO SCH ×3 (11:01→17:19)
[2017-05-07] MEDS: ENOXAPARIN SODIUM INJ 40 MG/0.4 ML DISP.SYRIN SUBCUT SCH (11:02)
--- NOTE | 2017-05-07 16:58 | PDOC PROGRESS REPORT ---
Subjective Progress Note for:: 05/07/17 Subjective:: Discussed with patient's and brother who are at bedside. reports that he has been taking in minimal p.o. She reports that he has been moaning and quite a bit of pain. She reports that he does not like the BiPAP. He reports his breathing is fine. He denies chest pain or abdominal pain. Physical Exam Vital Signs: Temp Pulse Resp BP Pulse Ox 98.8 F 83 20 113/69 96 05/07/17 03:26 05/07/17 03:26 05/07/17 03:26 05/07/17 03:26 05/07/17 03:26 Intake & Output 05/06/17 05/07/17 05/08/17 06:59 06:59 06:59 Intake Total 1657 1498 Output Total 1800 2400 Balance -143 -902 Weight 99.6 kg 99 kg Exam: General: Resting comfortably, no acute respiratory distress HEENT: Masklike facies, AT/NC, PERRL, EOMI, oropharynx is moist, pink, no scleral icterus, no conjunctival injection Neck: No JVD, trachea midline Chest: Clear to auscultation bilaterally, no wheezes rhonchi or rales CV: IRR, +2/6 systolic murmur; no rub or gallop Abdomen: Soft, diffusely tender to palpation, mildly distended, active bowel sounds; no rebound, rigidity; voluntary guarding Extremities: No cyanosis, clubbing or edema Neuro: cogwheel rigidity, no gross deficits, generalized weakness, answers questions appropriately Psych: flat mood and affect Results Laboratory Results: 05/07/17 05:10 05/07/17 05:10 05/07/17 05/07/17 05:10 05:10 WBC 8.5 RBC 3.86 L Hgb 12.0 L Hct 35.9 L MCV 93 MCH 31.1 MCHC 33.5 RDW 14.7 H Plt Count 400 Seg Neutrophils % 70.7 Lymphocytes % 16.7 Monocytes % 9.5 Eosinophils % 2.5 Basophils % 0.6 Absolute Neutrophils 6.0 Absolute Lymphocytes 1.4 Absolute Monocytes 0.8 Absolute Eosinophils 0.2 Absolute Basophils 0.1 Sodium 136.8 L Potassium 4.7 Chloride 105 Carbon Dioxide 23 Anion Gap 9 BUN 16 Creatinine 0.68 Est GFR ( Amer) > 60 Est GFR (Non-Af Amer) > 60 Glucose 125 H Calcium 8.9 05/04/17 04:55 Catheterized Urine Urine Culture - Final NO GROWTH 2 DAYS 04/26/17 04/30/17 04/30/17 17:42 01:26 01:26 Creatine Kinase 141 CK-MB (CK-2) 0.75 Troponin I < 0.012 < 0.012 04/30/17 04/30/17 04/30/17 07:26 07:26 13:45 Creatine Kinase 284 H 871 H CK-MB (CK-2) 3.77 Troponin I 0.017 04/30/17 13:45 Creatine Kinase CK-MB (CK-2) 8.30 H Troponin I 0.016 Impressions: Abdomen/Pelvis CT 04/26/17 12:45 IMPRESSION: Multiple air and fluid distended large and small bowel loops are identified as noted above most consistent with an ileus pattern although the possibility of an underlying obstruction cannot be excluded. Clinical correlation is recommended. Other findings as noted above KUB X-Ray 04/27/17 00:00 IMPRESSION: NG tube appears adequate. L stable. Modified Barium Swallow 04/29/17 00:00 IMPRESSION: LARYNGEAL PENETRATION WITH PROBABLE TRACE ASPIRATION WITH THIN AND HONEY THICK CONSISTENCIES.PLEASE SEE SPEECH PATHOLOGIST REPORT FOR OTHER FINDINGS AND RECOMMENDATIONS. Thoracentesis Ultrasound 05/01/17 00:00 IMPRESSION: SUCCESSFUL THORACENTESIS USING ULTRASOUND GUIDANCE. Chest X-Ray 05/05/17 00:00 IMPRESSION: Persistent opacity left retrocardiac region likely a combination of pleural thickening/ fluid and basilar consolidation. This is similar compared to 05/05/2017 and 05/03/2017. Minimal bandlike atelectasis right lung base. Chest Ultrasound 05/05/17 13:00 IMPRESSION: Small residual left pleural effusion, similar compared to 05/01/2017 Assessment & Plan - Diagnosis (1) Empyema lung Is this a current diagnosis for this admission?: Yes (2) LLL pneumonia Qualifiers: Pneumonia type: due to unspecified organism Qualified Code(s): J18.1 - Lobar pneumonia, unspecified organism Is this a current diagnosis for this admission?: Yes (3) Dynamic ileus Is this a current diagnosis for this admission?: Yes (4) Essential hypertension Is this a current diagnosis for this admission?: Yes (5) GERD (gastroesophageal reflux disease) Qualifiers: Esophagitis presence: without esophagitis Qualified Code(s): K21.9 - Gastro -esophageal reflux disease without esophagitis Is this a current diagnosis for this admission?: Yes (6) Ileus, unspecified Is this a current diagnosis for this admission?: Yes (7) Peripheral vascular disease Is this a current diagnosis for this admission?: Yes (8) Wegeners granulomatosis Is this a current diagnosis for this admission?: Yes (9) Acute on chronic respiratory failure with hypoxemia Is this a current diagnosis for this admission?: Yes (10) COPD exacerbation Is this a current diagnosis for this admission?: Yes (11) Celiac disease Is this a current diagnosis for this admission?: Yes (12) Diabetes mellitus type 2 in nonobese Is this a current diagnosis for this admission?: Yes - Time Time Spent with patient: 25-34 minutes Medications reviewed and adjusted accordingly: Yes - Plan Summary Plan Summary: At this time, I have discussed this case with his and brother who are present at bedside. Patient underwent swallow evaluation and was found to be poor candidate for oral and is currently on pured. She reports his oral intake has been exceptionally poor over the past week. At this time she does not feel that he would want a feeding tube. She agrees that he would want to be DNR/DNI. She is leaning towards hospice, but is unsure if she would do this in a facility or at home. At this time, we will consult palliative care. We will not use BiPAP as he does not like it and will move towards medications that make him comfortable only per family request. They are he is not yet ready to initiate comfort measures until final plan is initiated. They are searching for his living will, but feel that this would all be in accordance with what they know to be true. I am in agreement with this plan.
[2017-05-07] MEDS: ASPIRIN 81 MG TABLET, CHEWABLE PO SCH (17:19)
[2017-05-07] MEDS: NORMAL SALINE 1000 ML 1,000 ML IV PRN (20:07)
[2017-05-07] MEDS: MIRTAZAPINE 15 MG TABLET PO SCH (21:27)
[2017-05-07] MEDS: MEMANTINE HCL 10 MG TABLET PO SCH (21:27)
[2017-05-07] MEDS: MONTELUKAST SODIUM 10 MG TABLET PO SCH (21:27)
[2017-05-07] MEDS: CLONAZEPAM 1 MG TABLET PO SCH (21:27)
--- NOTE | 2017-05-07 23:42 | Progress Note ---
Provider Note Provider Note: Palliative care visit 05/07/17 11:40-11:55 AM Attempted to visit with patient, he was sleeping soundly, no family present. Returned to room a few minutes later, patient still sleeping even with respiratory care at bedside. Unable to reach per phone. Will try to visit again tomorrow. Appreciate consult request. Will ask hospice liason to check on patient and family also.
[2017-05-08] MEDS: IPRATROPIUM/ALBUTEROL 0.5-2.5 MG/3 ML AMPUL NEB SCH ×3 (02:03→13:32)
[2017-05-08] MEDS: CYCLOBENZAPRINE HCL 10 MG TABLET PO SCH ×2 (05:01→13:36)
[2017-05-08] MEDS: CARBIDOPA/LEVODOPA 25-100 MG TABLET PO SCH ×2 (05:01→13:36)
[2017-05-08] MEDS: PIPERACILLIN SODIUM/TAZOBACTAM 3.375 GM in NORMAL SALINE 100 ML IV SCH ×2 (05:04→13:36)
[2017-05-08] MEDS: OXYCODONE HCL IR 5 MG TABLET PO PRN ×2 (05:09→12:15)
[2017-05-08] MEDS: MAGNESIUM OXIDE 400 MG TABLET PO SCH ×2 (10:03→13:36)
[2017-05-08] MEDS: TAMSULOSIN HCL 0.4 MG CAP.SR.24H PO SCH (10:03)
[2017-05-08] MEDS: NYSTATIN/TRIAMCIN CREAM 15 GM TP SCH ×2 (10:04→13:36)
[2017-05-08] MEDS: ENOXAPARIN SODIUM INJ 40 MG/0.4 ML DISP.SYRIN SUBCUT SCH (10:04)
[2017-05-08] MEDS: FAMOTIDINE 20 MG TABLET PO SCH (10:04)
[2017-05-08] MEDS: DIGOXIN 0.125 MG TABLET PO SCH (10:04)
--- NOTE | 2017-05-08 12:18 | PDOC PROGRESS REPORT ---
Subjective Progress Note for:: 05/08/17 Subjective:: discussed with Dr.Cecilia Arango patient is DNR and will probably made comfort care I concur with this plan of action Physical Exam Vital Signs: Temp Pulse Resp BP Pulse Ox 97.9 F 71 22 H 112/68 94 05/08/17 07:22 05/08/17 07:57 05/08/17 07:57 05/08/17 07:22 05/08/17 07:57 Intake & Output 05/07/17 05/08/17 05/09/17 06:59 06:59 06:59 Intake Total 1498 946 Output Total 2400 2075 Balance -902 -1129 Weight 99 kg 97.8 kg General appearance: PRESENT: disheveled, hard of hearing, obese, well-developed Head exam: PRESENT: atraumatic, normocephalic Eye exam: PRESENT: conjunctiva pale, EOMI Mouth exam: PRESENT: dry mucosa, neck supple, tongue midline Neck exam: ABSENT: carotid bruit, JVD, lymphadenopathy, thyromegaly Respiratory exam: PRESENT: decreased breath sounds, prolonged expiratory phas, rales, rhonchi, symmetrical, unlabored. ABSENT: retraction, stridor, tachypnea Cardiovascular exam: PRESENT: RRR, +S1, +S2. ABSENT: tachycardia Pulses: PRESENT: normal radial pulses GI/Abdominal exam: PRESENT: normal bowel sounds, soft. ABSENT: distended, guarding, mass, organolmegaly, rebound, tenderness Musculoskeletal exam: PRESENT: normal inspection Neurological exam: PRESENT: awake. ABSENT: altered Skin exam: PRESENT: dry, warm Results Laboratory Results: 05/07/17 05:10 05/07/17 05:10 04/26/17 04/30/17 04/30/17 17:42 01:26 01:26 Creatine Kinase 141 CK-MB (CK-2) 0.75 Troponin I < 0.012 < 0.012 04/30/17 04/30/17 04/30/17 07:26 07:26 13:45 Creatine Kinase 284 H 871 H CK-MB (CK-2) 3.77 Troponin I 0.017 04/30/17 13:45 Creatine Kinase CK-MB (CK-2) 8.30 H Troponin I 0.016 Impressions: Abdomen/Pelvis CT 04/26/17 12:45 IMPRESSION: Multiple air and fluid distended large and small bowel loops are identified as noted above most consistent with an ileus pattern although the possibility of an underlying obstruction cannot be excluded. Clinical correlation is recommended. Other findings as noted above KUB X-Ray 04/27/17 00:00 IMPRESSION: NG tube appears adequate. L stable. Modified Barium Swallow 04/29/17 00:00 IMPRESSION: LARYNGEAL PENETRATION WITH PROBABLE TRACE ASPIRATION WITH THIN AND HONEY THICK CONSISTENCIES.PLEASE SEE SPEECH PATHOLOGIST REPORT FOR OTHER FINDINGS AND RECOMMENDATIONS. Thoracentesis Ultrasound 05/01/17 00:00 IMPRESSION: SUCCESSFUL THORACENTESIS USING ULTRASOUND GUIDANCE. Chest X-Ray 05/05/17 00:00 IMPRESSION: Persistent opacity left retrocardiac region likely a combination of pleural thickening/ fluid and basilar consolidation. This is similar compared to 05/05/2017 and 05/03/2017. Minimal bandlike atelectasis right lung base. Chest Ultrasound 05/05/17 13:00 IMPRESSION: Small residual left pleural effusion, similar compared to 05/01/2017 Assessment & Plan - Diagnosis (1) Empyema lung Is this a current diagnosis for this admission?: No (2) LLL pneumonia Qualifiers: Pneumonia type: due to unspecified organism Qualified Code(s): J18.1 - Lobar pneumonia, unspecified organism Is this a current diagnosis for this admission?: No (3) Atrial fibrillation Qualifiers: Atrial fibrillation type: paroxysmal Qualified Code(s): I48.0 - Paroxysmal atrial fibrillation Is this a current diagnosis for this admission?: Yes (4) Parkinsons disease Is this a current diagnosis for this admission?: Yes (5) Tobacco dependency Is this a current diagnosis for this admission?: Yes (6) Acute on chronic respiratory failure with hypoxemia Is this a current diagnosis for this admission?: Yes - Plan Summary Plan Summary: We will sign off for now please let me know if I can be of additional assistance tank you very much for allowing me to see Mr. Amador and he will participate in his care
--- NOTE | 2017-05-08 14:02 | Progress Note ---
Provider Note Provider Note: Palliative care visit with patient and family members at bedside. Patient is to be transferred to hospice care center today due to respiratory decline, general decline and dysphagia. He was able to take small amount thickened tea with crushed oxycodone for pain. He will be able to get sub cutaneous pain meds at [facility] which will help relieve dyspnea also. If patient improves, he may be able to go home with hospice support. Patient discussed with Dr. Sifuentes. Family appreciative of care here and transfer to [facility].
--- NOTE | 2017-05-08 14:41 | PDOC TRANSFER SUMMARY ---
General Admission Date/PCP: 04/26/17 16:33 Admission Date: 04/26/17 Transfer Date: 05/08/17 Accepting Facility: Other (Comments) Accepting Physician: Inpatient Hospice Resuscitation Status: Do Not Resuscitate - Transfer Diagnosis (1) Parkinsons disease Is this a current diagnosis for this admission?: Yes (2) Empyema lung Is this a current diagnosis for this admission?: No (3) LLL pneumonia Is this a current diagnosis for this admission?: No (4) Dynamic ileus Is this a current diagnosis for this admission?: Yes (5) Essential hypertension Is this a current diagnosis for this admission?: Yes (6) GERD (gastroesophageal reflux disease) Is this a current diagnosis for this admission?: Yes (7) Ileus, unspecified Is this a current diagnosis for this admission?: Yes (8) Peripheral vascular disease Is this a current diagnosis for this admission?: Yes (9) Wegeners granulomatosis Is this a current diagnosis for this admission?: Yes (10) Acute on chronic respiratory failure with hypoxemia Is this a current diagnosis for this admission?: Yes (11) COPD exacerbation Is this a current diagnosis for this admission?: Yes (12) Celiac disease Is this a current diagnosis for this admission?: Yes (13) Diabetes mellitus type 2 in nonobese Is this a current diagnosis for this admission?: Yes (14) Dementia Is this a current diagnosis for this admission?: Yes (15) Atrial fibrillation Is this a current diagnosis for this admission?: Yes (17) History of pulmonary embolus (PE) Is this a current diagnosis for this admission?: Yes (18) Tobacco dependency Is this a current diagnosis for this admission?: Yes - Transfer Medications Transfer Medications: Current Medications Acetaminophen (Tylenol 325 Mg Tablet) 650 mg PO Q4HP PRN PRN Reason: fever Stop: 05/26/17 16:32 Last Admin: 05/05/17 04:22 Dose: 650 mg Albuterol (Ventolin 0.083% Neb 2.5 Mg/3 Ml Ampul) 2.5 mg NEB RTQ4HP PRN PRN Reason: SOB/WHEEZING Stop: 05/26/17 16:32 Last Admin: 05/01/17 17:14 Dose: 2.5 mg Albuterol/Ipratropium (Duoneb 3 Ml Ampul) 3 ml NEB RTQ6 [facility] Stop: 05/26/17 19:59 Last Admin: 05/08/17 13:32 Dose: 3 ml Aspirin (Aspirin 81 Mg Chewable Tablet) 81 mg PO QPM [facility] Stop: 05/28/17 17:59 Last Admin: 05/07/17 17:19 Dose: 81 mg Carbidopa/Levodopa (Sinemet 25-100 Mg Tablet) 1.5 tab PO Q8 [facility] Stop: 05/28/17 13:59 Last Admin: 05/08/17 13:36 Dose: Not Given Clonazepam (Klonopin 1 Mg Tablet) 0.5 mg PO QHS [facility] Stop: 05/13/17 21:59 Last Admin: 05/07/17 21:27 Dose: 0.5 mg Cyclobenzaprine HCl (Flexeril 10 Mg Tablet) 5 mg PO Q8 [facility] Stop: 06/03/17 13:59 Last Admin: 05/08/17 13:36 Dose: Not Given Dextrose (Dextrose Inj 50% Syringe (25 Gm/50 Ml)) 12.5 gm IV PRN PRN; Protocol PRN Reason: FOR BG 50-69 IN ALERT PATIENT Stop: 05/26/17 16:32 Dextrose (Dextrose Inj 50% Syringe (25 Gm/50 Ml)) 25 gm IV PRN PRN; Protocol PRN Reason: See Label Comments Stop: 05/26/17 16:32 Digoxin (Lanoxin 0.125 Mg Tablet) 0.125 mg PO DAILY [facility] Stop: 05/30/17 09:59 Last Admin: 05/08/17 10:04 Dose: Not Given Enoxaparin Sodium (Lovenox Inj 40 Mg/0.4 Ml Disp.Syrin) 40 mg SUBCUT DAILY [facility] Stop: 05/27/17 09:59 Last Admin: 05/08/17 10:04 Dose: Not Given Famotidine (Pepcid 20 Mg Tablet) 20 mg PO Q12 [facility] Stop: 05/30/17 21:59 Last Admin: 05/08/17 10:04 Dose: Not Given Glucagon (Glucagen Inj 1 Mg Vial) 1 mg SUBCUT PRN PRN; Protocol PRN Reason: Evaluate for BG < 70 Stop: 05/26/17 16:32 Glucose (Glutose 40% Gel 15 Gm Tube) 15 gm PO PRN PRN; Protocol PRN Reason: For BG 50-69 in Alert Patient Stop: 05/26/17 16:32 Glucose (Glutose 40% Gel 15 Gm Tube) 30 gm PO PRN PRN; Protocol PRN Reason: FOR BG < 50 IN ALERT PATIENT Stop: 05/26/17 16:32 Heparin Sodium (Porcine) (Heparin Flush 10 Unit/Ml 5 Ml Disp.Syrg) 30 unit IV Q8 [facility] Stop: 06/04/17 21:59 Last Admin: 05/08/17 13:36 Dose: Not Given Heparin Sodium (Porcine) (Heparin Flush 10 Unit/Ml 5 Ml Disp.Syrg) 30 unit IV .AFTER EACH USE PRN PRN Reason: AFTER EACH INTERMITTENT USE Stop: 06/04/17 15:42 Sodium Chloride (Nacl 0.9% 1000 Ml Iv Soln) 1,000 mls @ 30 mls/hr IV .CONTINUOUS PRN Stop: 05/26/17 12:24 Last Admin: 05/07/17 20:07 Dose: 1,000 ml Piperacillin Sod/Tazobactam (Sod 3.375 gm/ Sodium Chloride) 100 mls @ 200 mls/ hr IV Q6 [facility] Stop: 05/09/17 11:59 Last Admin: 05/08/17 13:36 Dose: Not Given Influenza Virus Vaccine Quadrival (Fluzone Adlt Quad [id number] Vac 0.5 Ml Syr) 0.5 ml IM .DISCHARGE PRN PRN Reason: THIS MED IS NOT "PRN" Stop: 06/05/17 12:49 Insulin Human Lispro (Humalog Insulin 100 Unit/1 Ml 3 Ml Vial) 0 - 12 unit SUBCUT ACHSP PRN PRN Reason: Protocol Stop: 05/28/17 15:17 Last Admin: 04/30/17 21:37 Dose: 2 unit Lactulose (Cephulac Syrup 20 Gm/30 Ml Udcup) 20 gm PO Q6HP PRN PRN Reason: FOR CONSTIPATION Stop: 06/05/17 09:48 Last Admin: 05/06/17 17:23 Dose: 20 gm Lisinopril (Prinivil 5 Mg Tablet) 2.5 mg PO DAILY [facility] Stop: 05/28/17 09:59 Last Admin: 05/01/17 10:27 Dose: 2.5 mg Magnesium Oxide (Mag-Ox 400 Mg Tablet) 400 mg PO TID [facility] Stop: 05/28/17 09:59 Last Admin: 05/08/17 13:36 Dose: Not Given Memantine (Namenda 10 Mg Tablet) 5 mg PO QHS [facility] Stop: 05/28/17 21:59 Last Admin: 05/07/17 21:27 Dose: 5 mg Mirtazapine (Remeron 15 Mg Tablet) 30 mg PO QHS [facility] Stop: 06/04/17 21:59 Last Admin: 05/07/17 21:27 Dose: 30 mg Montelukast Sodium (Singulair 10 Mg Tablet) 10 mg PO QHS [facility] Stop: 05/28/17 21:59 Last Admin: 05/07/17 21:27 Dose: 10 mg Nystatin/Triamcinolone Acetonide (Mycolog-Ii Cream 15 Gm) 1 applic TP QID [facility] Stop: 05/13/17 13:59 Last Admin: 05/08/17 13:36 Dose: Not Given Ondansetron HCl (Zofran Inj/Pf 4 Mg/2 Ml Sdv) 4 mg IV Q4HP PRN PRN Reason: FOR NAUSEA/VOMITING Stop: 05/26/17 16:40 Oxycodone HCl (Oxy-Ir 5 Mg Tablet) 5 mg PO Q6HP PRN Stop: 05/14/17 10:18 Last Admin: 05/08/17 12:15 Dose: 5 mg Tamsulosin HCl (Flomax 0.4 Mg Cap.Sr) 0.4 mg PO DAILY [facility] Stop: 05/28/17 09:59 Last Admin: 05/08/17 10:03 Dose: Not Given - Allergies Allergies/Adverse Reactions: morphine Allergy (Verified 04/26/17 13:03) - Diet/Activity Discharge Diet: As Tolerated, Other (Comments) - honey thickened liquids, pureed Hospital Course Hospital Course: BRITTANY SALCEDO is a 77 year old male with past medical history of end-stage Parkinson's, Magi's granulomatosis, prior PE, COPD, tobacco dependence, celiac sprue, GERD, DM 2, AAA repair who presented to the emergency department on 04/26/17 for nasuea, vomiting, diarrhea. The patient states that he was feeling nauseated today yesterday. He states that he woke up this morning at 6 AM with multiple episodes of coffee ground emesis and has had black stools. Patient does state that his stools are normally dark and that he is takes iron. EMS was called to the home and the patient was brought in by EMS. EMS reports that the patient was treated with a liter of IV fluids as well as Zofran. On evaluation of the patient should he was lethargic and easily falls back to sleep, information therefore unobtainable from the patient at this time. Information obtained from emergency room records and from prior records. Emergency room physician obtain a CT of the abdomen and pelvis showing findings suggestive of ileus. There is a question of obstruction, and surgery was consulted and an evaluation of ileus was made. Patient reportedly was having wheezing and therefore was treated with nebulizers and ceftriaxone in the emergency room. IV fluid was likewise given. Nasogastric tube was placed. Stool for occult blood was negative. WBC was mildly elevated. Lactic acid was likewise mildly elevated but the patient is on metformin. No reported recent intake of antibiotic. The patient was then referred for admission. No other information available at this time. Information obtained from previous records. Patient was found to have ileus as well as left lower lobe pneumonia. Patient was placed on Zosyn for this as was felt to be secondary to dysphagia. Patient was found to have significant pleural effusion associated with this, and underwent thoracocentesis on 05/01/2017 which revealed a exudative fluid. This unfortunately did not grow any organisms. Patient continued on Zosyn. Patient continued to decline and initially was felt safe only for. And honey thickened liquids based on modified barium done on 04/29/2017. Repeat swallow evaluation revealed that patient was really not safe for any oral and they recommended feeding tube. Family declined feeding tube and has provided a living well. Patient was transitioned to DNR/DNI. At this time, they are comfortable making patient comfort only as he has been having significant amount of pain which we have been having a difficult time treating due to chronic recurrent hypercapnia from COPD. Patient has been evaluated and accepted for inpatient hospice due to his advanced Parkinson's disease, COPD, and ongoing pain needs. Physical Exam Vital Signs: Temp Pulse Resp BP Pulse Ox 97.7 F 76 20 117/73 96 05/08/17 11:11 05/08/17 13:32 05/08/17 13:32 05/08/17 11:11 05/08/17 13:32 Intake & Output 05/07/17 05/08/17 05/09/17 06:59 06:59 06:59 Intake Total 1498 946 120 Output Total 8219 5567 275 Balance -902 -1129 -155 Weight 99 kg 97.8 kg Exam: General: Resting comfortably, no acute respiratory distress Mild tachypnea HEENT: Masklike facies, AT/NC, PERRL, EOMI, oropharynx is moist, pink, no scleral icterus, no conjunctival injection Neck: No JVD, trachea midline Chest: Clear to auscultation bilaterally, no wheezes rhonchi or rales CV: IRR, +2/6 systolic murmur; no rub or gallop Abdomen: Soft, diffusely tender to palpation, mildly distended, active bowel sounds; no rebound, rigidity; voluntary guarding Extremities: No cyanosis, clubbing or edema Neuro: cogwheel rigidity, no gross deficits, generalized weakness, weakly answers questions somewhat appropriately Psych: flat mood and affect Results Laboratory Results: 05/07/17 05:10 05/07/17 05:10 04/26/17 04/30/17 04/30/17 17:42 01:26 01:26 Creatine Kinase 141 CK-MB (CK-2) 0.75 Troponin I < 0.012 < 0.012 04/30/17 04/30/17 04/30/17 07:26 07:26 13:45 Creatine Kinase 284 H 871 H CK-MB (CK-2) 3.77 Troponin I 0.017 04/30/17 13:45 Creatine Kinase CK-MB (CK-2) 8.30 H Troponin I 0.016 Impressions: Abdomen/Pelvis CT 04/26/17 12:45 IMPRESSION: Multiple air and fluid distended large and small bowel loops are identified as noted above most consistent with an ileus pattern although the possibility of an underlying obstruction cannot be excluded. Clinical correlation is recommended. Other findings as noted above KUB X-Ray 04/27/17 00:00 IMPRESSION: NG tube appears adequate. L stable. Modified Barium Swallow 04/29/17 00:00 IMPRESSION: LARYNGEAL PENETRATION WITH PROBABLE TRACE ASPIRATION WITH THIN AND HONEY THICK CONSISTENCIES.PLEASE SEE SPEECH PATHOLOGIST REPORT FOR OTHER FINDINGS AND RECOMMENDATIONS. Thoracentesis Ultrasound 05/01/17 00:00 IMPRESSION: SUCCESSFUL THORACENTESIS USING ULTRASOUND GUIDANCE. Chest X-Ray 05/05/17 00:00 IMPRESSION: Persistent opacity left retrocardiac region likely a combination of pleural thickening/ fluid and basilar consolidation. This is similar compared to 05/05/2017 and 05/03/2017. Minimal bandlike atelectasis right lung base. Chest Ultrasound 05/05/17 13:00 IMPRESSION: Small residual left pleural effusion, similar compared to 05/01/2017 Plan Time Spent: Greater than 30 Minutes
[2017-05-08] MEDS ORDERED: HYDROMORPHONE HCL INJ/PF 2 MG/ML AMPULE IV ONE (15:38)
[2017-05-08 17:00] VITALS: BP 124/59
== END 2017-05-08 17:10 | disposition hospice, inpatient (51) | DRG 871 ==
LOC: ER 11:55 → EH 15:25 → UNDOADMIN 15:25 → EH 16:33 → 3W 16:53 → EH 16:53
PROC: 3E0F73Z Introduction of Anti-inflammatory into Respiratory Tract, Via Natural or Artificial Opening (ICD-10-PCS; 2017-04-26)
PROC: 0D9670Z Drainage of Stomach with Drainage Device, Via Natural or Artificial Opening (ICD-10-PCS; 2017-04-27)
PROC: 5A09457 Assistance with Respiratory Ventilation, 24-96 Consecutive Hours, Continuous Positive Airway Pressure (ICD-10-PCS; 2017-04-30)
PROC: 0W9B3ZX Drainage of Left Pleural Cavity, Percutaneous Approach, Diagnostic (ICD-10-PCS; 2017-05-01)
PROC: BB4BZZZ Ultrasonography of Pleura (ICD-10-PCS; 2017-05-01)
PROC: 02HV33Z Insertion of Infusion Device into Superior Vena Cava, Percutaneous Approach (ICD-10-PCS; principal; 2017-05-05)
DX: A41.9 Sepsis, unspecified organism (principal); J18.1 Lobar pneumonia, unspecified organism; J96.21 Acute and chronic respiratory failure with hypoxia; A09 Infectious gastroenteritis and colitis, unspecified; I67.3 Progressive vascular leukoencephalopathy; J44.1 Chronic obstructive pulmonary disease with (acute) exacerbation; J44.0 Chronic obstructive pulmonary disease with (acute) lower respiratory infection; K56.0 Paralytic ileus; I10 Essential (primary) hypertension; G20 Parkinson's disease; F02.80 Dementia in other diseases classified elsewhere, unspecified severity, without behavioral disturbance, psychotic disturbance, mood disturbance, and anxiety; K90.0 Celiac disease; Z66 Do not resuscitate; E11.9 Type 2 diabetes mellitus without complications; E78.5 Hyperlipidemia, unspecified; K21.9 Gastro-esophageal reflux disease without esophagitis; M19.90 Unspecified osteoarthritis, unspecified site; E78.00 Pure hypercholesterolemia, unspecified; I48.0 Paroxysmal atrial fibrillation; F17.210 Nicotine dependence, cigarettes, uncomplicated; Z95.1 Presence of aortocoronary bypass graft; Z79.899 Other long term (current) drug therapy; Z79.82 Long term (current) use of aspirin; Z88.6 Allergy status to analgesic agent; Z86.711 Personal history of pulmonary embolism; Z90.49 Acquired absence of other specified parts of digestive tract; Z83.3 Family history of diabetes mellitus; Z82.49 Family history of ischemic heart disease and other diseases of the circulatory system
CPT/HCPCS: 32555; 36415; 36600; 71010; 71020; 74000; 74177; 74230; 76604; 80048; 80053; 81001; 82272; 82550; 82553; 82803; 82945; 82962; 83605; 83615; 83735; 84100; 84157; 84443; 84484; 85025; 85027; 85610; 85730; 87015; 87040; 87070; 87075; 87086; 87116; 87205; 87206; 87493; 89050; 93005; 93010; 94640; 94660; 96361; 96374; 96375; 99284; C1751; G8996-GN; G8997-GN; J0696; J0743; J1160; J1170; J1200; J1642; J1650; J1815; J2405; J2543; J2765; J3475; J3490; J7030; J7620; S0028